=== PATIENT | female | born 1955 | race Caucasian/White ===

== ENCOUNTER → 2019-05-09 09:53 | Outpatient (BNVA) | payer MEDICARE, MEDICAID, SELFPAY | PROVIDERS: Family Provider Nurse Practitioner Family; PCP Nurse Practitioner Family; Visit Provider Internal Medicine Hematology & Oncology | DX: C18.2 Malignant neoplasm of ascending colon (principal) | CPT/HCPCS: 80053; 82378; 85025 ==

== ENCOUNTER 2019-05-11 09:09 | Outpatient (CLI) | payer MEDICARE, MEDICAID, SELFPAY | END 2019-05-11 09:10 | disposition home or self-care (01) | LOC: ONCMED 09:09 | PROVIDERS: Family Provider Nurse Practitioner Family; PCP Nurse Practitioner Family; Visit Provider Internal Medicine Hematology & Oncology | DX: Z08 Encounter for follow-up examination after completed treatment for malignant neoplasm (principal); Z85.038 Personal history of other malignant neoplasm of large intestine; D50.9 Iron deficiency anemia, unspecified; D51.9 Vitamin B12 deficiency anemia, unspecified; E87.6 Hypokalemia; R91.8 Other nonspecific abnormal finding of lung field; Z79.01 Long term (current) use of anticoagulants; Z87.891 Personal history of nicotine dependence; Z86.718 Personal history of other venous thrombosis and embolism; Z90.49 Acquired absence of other specified parts of digestive tract; Z92.21 Personal history of antineoplastic chemotherapy | CPT/HCPCS: G0463 ==

== ENCOUNTER → 2019-05-16 10:16 | Outpatient (BNVA) | payer MEDICARE, MEDICAID, SELFPAY | PROVIDERS: Visit Provider Psychiatry & Neurology Neurology | DX: E87.6 Hypokalemia (principal) | CPT/HCPCS: 80053 ==

== ENCOUNTER → 2019-09-05 11:17 | Outpatient (BNVA) | payer MEDICARE, MEDICAID, SELFPAY | PROVIDERS: Visit Provider Internal Medicine Hematology & Oncology | DX: C18.9 Malignant neoplasm of colon, unspecified (principal); E78.5 Hyperlipidemia, unspecified | CPT/HCPCS: 80053; 80061; 82378; 85025 ==

== ENCOUNTER 2019-09-07 09:09 | Outpatient (CLI) | payer MEDICARE, MEDICAID, SELFPAY ==
--- NOTE | 2019-09-07 09:58 | ONC FU_ITS ---
Dr. Martinez follow up note Patient: Dulce Moran Unit #: [id number]: 1955 Dicatated By: Joseph Martinez M.D.Date of Visit:September 07, 2019 Onc Med Follow-up/Prog Note History of Present Illness: Mrs. Moran is a 64-year-old female with history of anemia and guaiac-positive stool for which she underwent EGD and colonoscopy per Dr Sky. She was found to have a malignant appearing mass of the right colon. That was biopsy in did show adenocarcinoma. She had a CT scan on 12/07/2017 which reported proximal ascending colon mass small adjacent pericolic lymph nodes; like eczema; her hysterectomy and extensive arterial sclerotic peripheral vascular changes. She underwent EGD which did not find any abnormalities area the final pathology was infiltrating adenocarcinoma poorly differentiated mitotic activity index 6???7 mitosis/10 HPF the colon sigmoid polyp biopsies were benign. There was no evidence of any bony abnormalities or lytic destructive lesions. She had nonacute appearing superior endplate compression of T12, L1, L2 and L4 vertebral bodies. On 12/13/2017 she underwent a right hemicolectomy which showed T3 lesion, with 1 out of 17 lymph nodes were positive for metastatic disease and positive small lymphovascular space invasion, stage III with abnormal expression of DNA mismatch repair protein It is been recommended that she undergo adjuvant chemotherapy with FOLFOX. She began her first cycle on 01/30/2018. Baseline CEA was 0. She states that she has felt somewhat better being off the chemotherapy for the last several weeks. Her family confers that she has had great energy and is been very active. Ms. Moran states that with the last dose of oxaliplatin for 2 weeks she couldn't get out of bed. Her legs were weak and numb she had mouth numbness to the point worse difficult to swallow. She states she was just completely washed out awful . She states she would really rather not go that route if she does not have to. She states she understands this just to be a preventative against the cancer returning. The neuropathy has pretty well resolved although this she still has some in her hands and feet. So oxaliplatin was not given with cycle #5 FOLFOX and her treatment was stopped after cycle 5 on 04/12/2018. She was seen by Dr. Ramirez on 05/24/2018 @ [facility] [place] in [facility]. It was noted that she had resected stage IIIB right-sided colon adenocarcinoma, poorly differentiate, with loss of mL H1 and PMS to on IHC. There was suspicion for underlying BRAF mutation given the concordant loss of MLH1 and PMS2, potentially due to MLH1 promoter hypermethylation. It was recommended that she have next gene sequencing done with [employer] or [employer] and [employer] for circulating tumor DNA analysis. If her follow-up scans did not show any evidence of disease it was recommended that she resume FOLFOX to complete 12 cycles of adjuvant therapy. She restarted with FOLFOX on 06/19/2018. . She states she went cold turkey and has not smoked since. except numbness in left thumb and index finger, attributing to rheumatoid arthritis.Day after cycle #11/12 chemotherapy with FOLFOX on 09/15/2018 , patient developed fascial swelling/puffiness and came to office initial impression was allergic reaction, she was given dexamethasone/antihistaminic and observed for couple of hours, there was no improvement, patient had no respiratory distress, she was sent to emergency room for further evaluation with a concern being superior vena cava syndrome or DVT involving subclavian vein around Port-A-Cath in the right side. And on 09/15/2018 she underwent bilateral upper extremity venous Doppler study which showed left subclavian, basilic vein, internal jugular vein thrombosis and no evidence of right upper extremity DVT. Patient was admitted to hospital started on Lovenox and lateral switched to apixaban and discharge home. She was also found to have B12 deficiency and Treated with B12 supplements Now taking Eliquis 5 mg by mouth twice a day and recently went to vascular surgeon in [place] for thrombectomy in left upper arm, it was attempted but was unsuccessful. Patient said she was advised to go back in a year in December 2019 in the meantime advised to continue with Eliquis 5 mg by mouth twice a day and also recommend port removal. She was seen by Dr. Gonzalez for neuropathy involving bilateral hands, nerve conduction study was recommended as she may have carpal tunnel or median nerve compression but as per Dr. Gonzalez's note patient was not keen to get further studies done rather follow with observation alone. Came for follow-up, denies any specific complaints, no fever or chills, no nausea or vomiting, no diarrhea constipation, no melena or hematochezia, no jaundice, appetite is good.mild peripheral numbness involving hands, as per patient it is improving now Medications: Acid Control 1 (150 mg) Tablet Oral b.i.d., B-12 1 Tablet (of 100 mcg) Oral daily, Citalopram Hydrobromide 1 Tablet (of 40 mg) Oral daily, Claritin 1 Tablet (of 10 mg) Oral daily, Eliquis 1 Tablet (of 5 mg) Oral b.i.d., Folic Acid 1 Tablet (of 1 mg) Oral, Multiple Vitamins-Minerals 1 Tablet Oral daily, Protonix 1 Tablet (of 40 mg) Tablet, enteric coated Oral daily, TiZANidine HCl 1 Tablet (of 4 mg) Oral q 8 hours, TraMADol HCl 1 Tablet (of 50 mg) Oral four times a day, TraZODone HCl 0.5 - 1 Tablet (of 100 mg) Oral at bedtime Allergies: Advil, Aspirin, Penicillins, and Sulfa Antibiotics. Review of Systems: Constitutional - Appetite is good and weight is stable. No fever, chills, hot flashes, or night sweats. Energy level is good, ENMT - No sinus congestion, slight drainage. No mouth sores. No sore throat or difficulty swallowing, Hematologic/Lymphatic - Pt states she bruises easily, Respiratory - No shortness of breath. No cough. No pleuritic pain or hemoptysis. Pt quit smoking 3 weeks ago, Cardiovascular - No angina pain. No palpitations, Gastrointestinal - No nausea or vomiting. No heartburn or acid reflux. Occasional diarrhea, no constipation. No blood in the stool or black stools, Genitourinary (F) - No dysuria or hematuria. No urinary frequency. No urgency or incontinence, Musculoskeletal - Positive for joint pain (Pt has RA), Neurologic - No headache or dizziness. Pt denies numbness/tingling, Psychiatric - No anxiety or depression. No insomnia. Vital Signs: Performed on September 07, 2019 09:16 Height - 62.00 in Weight - 106.7 lbs (HIGH) BSA - 1.46 sq.m BMI - 19.52 Temperature - 97.9 F (LOW) Pulse - 66 /min Respiration - 16 /min BP - 160/80 mm(hg) (HIGH) O2 Sat - 98 % Pain - 0 Performance Status: 0 - Fully active, able to carry on all predisease activities without restrictions. (ECOG) Physical Examination: ENMT - no mouth sores, no thrush, no jaundice, Respiratory - Lungs are clear to auscultation, Cardiovascular - Regular rate and rhythm of heart, Abdomen - soft, bowel sounds present, Extremities - no visible edema or rash. Lab/Imaging: Test performed on September 05, 2019 11:17 Cholesterol, Total 178 mg/dL Glucose 80 mg/dL BUN 7 mg/dL HDL Cholesterol 52 mg/dL Creatinine 0.9 mg/dL LDL Cholesterol 95 mg/dL Cr Clearance (Est) 50.38 mL/min Triglycerides 156 mg/dL Sodium 139 mmol/L Potassium 4.1 mmol/L Chloride 102 mmol/L CO2 23 mmol/L Calcium 8.9 mg/dL Protein, Total 6.3 g/dL Albumin 4.3 g/dL Globulin 2.0 g/dL Bilirubin, Total 0.4 mg/dL Alkaline Phosphatase 125 IU/L AST (SGOT) 16 IU/L ALT (SGPT) 8 IU/L WBC 5.1 10^9/L RBC 3.55 10^12/L HGB 11.7 g/dL HCT 36.2 % MCV 102.0 fl MCH 33.0 pg MCHC 32.3 g/dL RDW 13.0 % Platelet Count 264 10^9/L MPV 10.8 fL Neutrophils (Gran) 2.7 10^9/L Lymphocytes 2.0 10^9/L Monocytes 0.3 10^9/L Eosinophils 0.1 10^9/L Basophils 0.0 10^9/L Manual Lymphocytes 38.7 % Manual Monocytes 6.4 % Manual Eosinophils 2.3 % Manual Basophils 0.8 % CEA 1.2 ng/mL Test performed on May 09, 2019 09:53 NRBCs 0.0 /100 WBC Impression: Moderately differentiated infiltrating adenocarcinoma involving the right colon status post right hemicolectomy done on 12/13/2017 Size of tumor 5.3 x 3.2 x 0.6 cm, with focal invasion through muscularis propria into serosal connective tissue e.g. T3 1 out of 17 lymph nodes positive for metastatic disease e.g. N1 Positive small lymphovascular space invasion Stage IIIB Tumor was tested for MSI/MMR on 05/01/2018 and it showed abnormal expression of DNA mismatch repair proteins MLH1, and PMS2 showed loss of nuclear expression whereas MSH2 and MSH6 showed intact nuclear expression. Further testing showed positive for BRAF mutation Started on FOLFOX every 2 weeks ???12 on 01/30/2018. Due to worsening of peripheral neuropathy and generalized weakness and fatigue cycle #5 FOLFOX was given without oxaliplatin. 2 .Iron deficiency anemia due to above On oral iron supplement Mrs Moran was evaluated by Dr. Aaron Ramirez , medical oncologist in colorectal clinic at [facility] on 05/22/2018 and his recommendations were, due to MSI high status, to continue with FOLFOX and complete total of 12 cycle of adjuvant chemotherapy, as patient's prognostic profiling shows loss of MLH1 and PMS 2 on IHC and and also recommended testing BRAF mutation given the concordant loss of MLH1 and PMS 2, potentially due to MLH1 promoter hyper methylation. Also recommended [employer] circulating tumor DNA analysis and CT scan of chest abdomen pelvis. CT scan of chest/abdomen/pelvis was done on 05/31/2018 showed left lower lobe superior segment 3-4 millimeter noncalcified pulmonary nodule. Right thyroid 6 mm cyst or nodule Nonacute appearing T7, T8 and T12 mild vertebral body compression deformities New left hepatic lobe subcapsular low-attenuation foci may represent fatty liver changes. Metastatic disease not entirely excluded. Suggest follow-up CT scan in 3 months, biochemical correlation maybe useful. Interval right partial colectomy with ileocolic anastomosis. She resumed treatment with FOLFOX on 06/19/2018. Her CT PET scan done on 08/12/2018 showed there are 2 suspicious hypermetabolic right lung apex pulmonary nodules both measures roughly 8 mm with SUV of 2.4 and 2.9. But liver lesion seen on previous CT scan showed no increased uptake, make it benign. So we'll continue to monitor lung nodules, patient has recently quit smoking. We will repeat CT PET scan in 3 months Developed facial swelling/puffiness on 09/15/2018, underwent bilateral upper extremities venous Doppler which confirmed left internal jugular, subclavian and basilic vein DVT patient was treated with Lovenox as inpatient for 2 days then switch to apixaban and discharged home Patient has Port-A-Cath in the right side but earlier in January 2018 port placement was attempted in left subclavian also be, could have caused scarring/narrowing of left subclavian this led to DVT other possibility could be thoracic outlet syndrome. B12 deficiency anemia Plan: Discussed with patient regarding her labs white blood count 5.1 hemoglobin 11.7 hematocrit 36.2 platelets 264,000 CMP within normal limits CEA 1.2 Clinically, patient is doing well with no signs symptom suggestive of recurrence of disease. Her tumor marker within normal limit as well as liver function test. Patient is scheduled for follow-up colonoscopy in November [address] Sky., She will return to clinic in 6 months with CBC CMP and CEA. Signed By: Joseph Martinez M.D. <<Signature on File>>
== END 2019-09-07 09:10 | disposition home or self-care (01) ==
LOC: ONCMED 09:13
PROVIDERS: PCP Nurse Practitioner Family; Visit Provider Internal Medicine Hematology & Oncology
DX: Z08 Encounter for follow-up examination after completed treatment for malignant neoplasm (principal); Z85.038 Personal history of other malignant neoplasm of large intestine; R91.8 Other nonspecific abnormal finding of lung field; D51.9 Vitamin B12 deficiency anemia, unspecified; Z87.891 Personal history of nicotine dependence; Z86.718 Personal history of other venous thrombosis and embolism; Z79.01 Long term (current) use of anticoagulants; Z92.21 Personal history of antineoplastic chemotherapy
CPT/HCPCS: G0463

== ENCOUNTER → 2019-12-12 11:33 | Outpatient (BNVA) | payer MEDICARE, MEDICAID, SELFPAY | PROVIDERS: PCP Nurse Practitioner Family; Visit Provider Nurse Practitioner Family | DX: E78.5 Hyperlipidemia, unspecified (principal) | CPT/HCPCS: 80053; 80061; 85025 ==

== ENCOUNTER → 2020-03-13 11:32 | Outpatient (BNVA) | payer MEDICARE, MEDICAID, SELFPAY | PROVIDERS: PCP Nurse Practitioner Family; Visit Provider Internal Medicine Hematology & Oncology | DX: C18.9 Malignant neoplasm of colon, unspecified (principal) | CPT/HCPCS: 80053; 82378; 85025 ==

== ENCOUNTER 2020-03-14 08:52 | Outpatient (CLI) | payer MEDICARE, MEDICAID, SELFPAY ==
--- NOTE | 2020-03-14 09:34 | ONC FU_ITS ---
Dr. Martinez follow up note Patient: Dulce Moran Unit #: [id number]: 1955 Dicatated By: Joseph Martinez M.D.Date of Visit:Mar 14, 2020 Onc Med Follow-up/Prog Note History of Present Illness: Mrs. Moran is a 65-year-old female with history of anemia and guaiac-positive stool for which she underwent EGD and colonoscopy per Dr Sky. She was found to have a malignant appearing mass of the right colon. That was biopsy in did show adenocarcinoma. She had a CT scan on 12/07/2017 which reported proximal ascending colon mass small adjacent pericolic lymph nodes; like eczema; her hysterectomy and extensive arterial sclerotic peripheral vascular changes. She underwent EGD which did not find any abnormalities area the final pathology was infiltrating adenocarcinoma poorly differentiated mitotic activity index 6???7 mitosis/10 HPF the colon sigmoid polyp biopsies were benign. There was no evidence of any bony abnormalities or lytic destructive lesions. She had nonacute appearing superior endplate compression of T12, L1, L2 and L4 vertebral bodies. On 12/13/2017 she underwent a right hemicolectomy which showed T3 lesion, with 1 out of 17 lymph nodes were positive for metastatic disease and positive small lymphovascular space invasion, stage III with abnormal expression of DNA mismatch repair protein It is been recommended that she undergo adjuvant chemotherapy with FOLFOX. She began her first cycle on 01/30/2018. Baseline CEA was 0. She states that she has felt somewhat better being off the chemotherapy for the last several weeks. Her family confers that she has had great energy and is been very active. Ms. Moran states that with the last dose of oxaliplatin for 2 weeks she couldn't get out of bed. Her legs were weak and numb she had mouth numbness to the point worse difficult to swallow. She states she was just completely washed out awful . She states she would really rather not go that route if she does not have to. She states she understands this just to be a preventative against the cancer returning. The neuropathy has pretty well resolved although this she still has some in her hands and feet. So oxaliplatin was not given with cycle #5 FOLFOX and her treatment was stopped after cycle 5 on 04/12/2018. She was seen by Dr. Ramirez on 05/24/2018 @ [facility] [place] in [facility]. It was noted that she had resected stage IIIB right-sided colon adenocarcinoma, poorly differentiate, with loss of mL H1 and PMS to on IHC. There was suspicion for underlying BRAF mutation given the concordant loss of MLH1 and PMS2, potentially due to MLH1 promoter hypermethylation. It was recommended that she have next gene sequencing done with [employer] or [employer] and [employer] for circulating tumor DNA analysis. If her follow-up scans did not show any evidence of disease it was recommended that she resume FOLFOX to complete 12 cycles of adjuvant therapy. She restarted with FOLFOX on 06/19/2018. . She states she went cold turkey and has not smoked since. except numbness in left thumb and index finger, attributing to rheumatoid arthritis.Day after cycle #11/12 chemotherapy with FOLFOX on 09/15/2018 , patient developed fascial swelling/puffiness and came to office initial impression was allergic reaction, she was given dexamethasone/antihistaminic and observed for couple of hours, there was no improvement, patient had no respiratory distress, she was sent to emergency room for further evaluation with a concern being superior vena cava syndrome or DVT involving subclavian vein around Port-A-Cath in the right side. And on 09/15/2018 she underwent bilateral upper extremity venous Doppler study which showed left subclavian, basilic vein, internal jugular vein thrombosis and no evidence of right upper extremity DVT. Patient was admitted to hospital started on Lovenox and lateral switched to apixaban and discharge home. She was also found to have B12 deficiency and Treated with B12 supplements Now taking Eliquis 5 mg by mouth twice a day and recently went to vascular surgeon in [place] for thrombectomy in left upper arm, it was attempted but was unsuccessful. Patient said she was advised to go back in a year in December 2019 in the meantime advised to continue with Eliquis 5 mg by mouth twice a day and also recommend port removal. She was seen by Dr. Gonzalez for neuropathy involving bilateral hands, nerve conduction study was recommended as she may have carpal tunnel or median nerve compression but as per Dr. Gonzalez's note patient was not keen to get further studies done rather follow with observation alone. Came for follow-up, denies any specific complaints, no fever chills, no nausea or vomiting, no diarrhea or constipation, no melena hematochezia no hemoptysis hematemesis, no jaundice. Patient states she went to vascular surgeon in [place] for follow-up and had left upper extremity venous Doppler study done in December 2019 and she was told she still has clot and was recommended to continue anticoagulation probably for rest of her life. Patient was supposed to get follow-up colonoscopy done in November 2019 but because of coronavirus pandemic, she did not schedule it. Medications: Acid Control 1 (150 mg) Tablet Oral b.i.d., B-12 1 Tablet (of 100 mcg) Oral daily, Citalopram Hydrobromide 1 Tablet (of 40 mg) Oral daily, Claritin 1 Tablet (of 10 mg) Oral daily, Eliquis 1 Tablet (of 5 mg) Oral b.i.d., Folic Acid 1 Tablet (of 1 mg) Oral, Multiple Vitamins-Minerals 1 Tablet Oral daily, Protonix 1 Tablet (of 40 mg) Tablet, enteric coated Oral daily, TiZANidine HCl 1 Tablet (of 4 mg) Oral q 8 hours, TraMADol HCl 1 Tablet (of 50 mg) Oral four times a day, TraZODone HCl 0.5 - 1 Tablet (of 100 mg) Oral at bedtime Allergies: Advil, Aspirin, Penicillins, and Sulfa Antibiotics. Review of Systems: Constitutional - Appetite is good and weight is stable. No fever, chills, hot flashes, or night sweats. Energy level is good, ENMT - No sinus congestion, slight drainage. No mouth sores. No sore throat or difficulty swallowing, Hematologic/Lymphatic - Pt states she bruises easily, Respiratory - No shortness of breath. No cough. No pleuritic pain or hemoptysis. Pt quit smoking 3 weeks ago, Cardiovascular - No angina pain. No palpitations, Gastrointestinal - No nausea or vomiting. No heartburn or acid reflux. No diarrhea, no constipation. No blood in the stool or black stools, Genitourinary (F) - No dysuria or hematuria. No urinary frequency. No urgency or incontinence, Musculoskeletal - Positive for joint pain (Pt has RA), Neurologic - No headache or dizziness. Pt denies numbness/tingling, Psychiatric - No anxiety or depression. No insomnia. Vital Signs: Performed on Mar 14, 2020 09:03 Height - 62.00 in Weight - 106.0 lbs (LOW) BSA - 1.46 sq.m BMI - 19.39 Temperature - 98.2 F (LOW) Pulse - 71 /min Respiration - 18 /min BP - 125/78 mm(hg) O2 Sat - 98 % Pain - 0 Performance Status: 0 - Fully active, able to carry on all predisease activities without restrictions. (ECOG) Physical Examination: ENMT - No mouth sores no thrush no jaundice, Respiratory - Lungs are clear to auscultation, Cardiovascular - Regular rate and rhythm of heart , Abdominal soft, bowel sounds present, Extremities - No visible edema or rash. Lab/Imaging: Test performed on Mar 13, 2020 11:32 Glucose 99 mg/dL BUN 13 mg/dL Creatinine 0.9 mg/dL Cr Clearance (Est) 49.71 mL/min Sodium 140 mmol/L Potassium 4.4 mmol/L Chloride 103 mmol/L CO2 26 mmol/L Calcium 9.4 mg/dL Protein, Total 6.3 g/dL Albumin 4.4 g/dL Globulin 1.9 g/dL Bilirubin, Total 0.3 mg/dL Alkaline Phosphatase 123 IU/L AST (SGOT) 12 IU/L ALT (SGPT) 6 IU/L WBC 5.6 10^9/L RBC 3.68 10^12/L HGB 12.2 g/dL HCT 36.0 % MCV 97.8 fl MCH 33.2 pg MCHC 33.9 g/dL RDW 12.4 % Platelet Count 265 10^9/L MPV 10.9 fL Neutrophils (Gran) 3.13 10^9/L Lymphocytes 2.0 10^9/L Monocytes 0.3 10^9/L Eosinophils 0.1 10^9/L Basophils 0.0 10^9/L Manual Lymphocytes 36.4 % Manual Monocytes 5.9 % Manual Eosinophils 1.4 % Manual Basophils 0.4 % CEA 1.5 ng/mL Impression: Moderately differentiated infiltrating adenocarcinoma involving the right colon status post right hemicolectomy done on 12/13/2017 Size of tumor 5.3 x 3.2 x 0.6 cm, with focal invasion through muscularis propria into serosal connective tissue e.g. T3 1 out of 17 lymph nodes positive for metastatic disease e.g. N1 Positive small lymphovascular space invasion Stage IIIB Tumor was tested for MSI/MMR on 05/01/2018 and it showed abnormal expression of DNA mismatch repair proteins MLH1, and PMS2 showed loss of nuclear expression whereas MSH2 and MSH6 showed intact nuclear expression. Further testing showed positive for BRAF mutation Started on FOLFOX every 2 weeks ???12 on 01/30/2018. Due to worsening of peripheral neuropathy and generalized weakness and fatigue cycle #5 FOLFOX was given without oxaliplatin. 2 .Iron deficiency anemia due to above On oral iron supplement Mrs Moran was evaluated by Dr. Aaron Ramirez , medical oncologist in colorectal clinic at [facility] on 05/22/2018 and his recommendations were, due to MSI high status, to continue with FOLFOX and complete total of 12 cycle of adjuvant chemotherapy, as patient's prognostic profiling shows loss of MLH1 and PMS 2 on IHC and and also recommended testing BRAF mutation given the concordant loss of MLH1 and PMS 2, potentially due to MLH1 promoter hyper methylation. Also recommended [employer] circulating tumor DNA analysis and CT scan of chest abdomen pelvis. CT scan of chest/abdomen/pelvis was done on 05/31/2018 showed left lower lobe superior segment 3-4 millimeter noncalcified pulmonary nodule. Right thyroid 6 mm cyst or nodule Nonacute appearing T7, T8 and T12 mild vertebral body compression deformities New left hepatic lobe subcapsular low-attenuation foci may represent fatty liver changes. Metastatic disease not entirely excluded. Suggest follow-up CT scan in 3 months, biochemical correlation maybe useful. Interval right partial colectomy with ileocolic anastomosis. She resumed treatment with FOLFOX on 06/19/2018. Her CT PET scan done on 08/12/2018 showed there are 2 suspicious hypermetabolic right lung apex pulmonary nodules both measures roughly 8 mm with SUV of 2.4 and 2.9. But liver lesion seen on previous CT scan showed no increased uptake, make it benign. So we'll continue to monitor lung nodules, patient has recently quit smoking. We will repeat CT PET scan in 3 months Developed facial swelling/puffiness on 09/15/2018, underwent bilateral upper extremities venous Doppler which confirmed left internal jugular, subclavian and basilic vein DVT patient was treated with Lovenox as inpatient for 2 days then switch to apixaban and discharged home Patient has Port-A-Cath in the right side but earlier in January 2018 port placement was attempted in left subclavian also be, could have caused scarring/narrowing of left subclavian this led to DVT other possibility could be thoracic outlet syndrome. B12 deficiency anemia Plan: Discussed with patient regarding her labs white blood count 5.6 hemoglobin 12.2 hematocrit 36 platelets 265,000 CMP within normal limits CEA 1.5 Clinically, patient is doing well with no new signs symptom suggestive of recurrence of disease, her follow-up lab work-up is within normal range. Patient was advised to follow-up with Dr. Sky regarding her colonoscopy and then return to clinic in 6 months with CBC CMP CEA Signed By: Joseph Martinez M.D. <<Signature on File>>
== END 2020-03-14 08:53 | disposition home or self-care (01) ==
LOC: ONCMED 08:56
PROVIDERS: PCP Nurse Practitioner Family; Visit Provider Internal Medicine Hematology & Oncology
DX: Z08 Encounter for follow-up examination after completed treatment for malignant neoplasm (principal); Z85.038 Personal history of other malignant neoplasm of large intestine; E53.8 Deficiency of other specified B group vitamins; Z90.49 Acquired absence of other specified parts of digestive tract; Z92.21 Personal history of antineoplastic chemotherapy; Z86.718 Personal history of other venous thrombosis and embolism; Z79.01 Long term (current) use of anticoagulants
CPT/HCPCS: G0463

== ENCOUNTER → 2020-05-02 11:03 | Outpatient (BNVA) | payer MEDICARE, MEDICAID, SELFPAY | PROVIDERS: PCP Nurse Practitioner Family; Visit Provider Family Medicine | DX: Z85.038 Personal history of other malignant neoplasm of large intestine (principal); E78.5 Hyperlipidemia, unspecified; Z20.828 Contact with and (suspected) exposure to other viral communicable diseases | CPT/HCPCS: 80053; 80061; 82607; 85025; 87635 ==

== ENCOUNTER 2020-05-07 07:23 | Day surgery (SDC) | payer MEDICARE, MEDICAID, SELFPAY ==
[2020-05-05 12:40] VITALS: BMI 19.3
[2020-05-07] MEDS: sodium chloride 0.9% 1,000 ML 30 ML IV (07:30)
[2020-05-07 07:32] VITALS: BP 124/77; PULSE 86; RESP 16; TEMP 36.1; O2SAT 97
--- NOTE | 2020-05-07 08:27 | ANES.PREANE2 ---
Pre-Anesthetic Assessment Pre-Anesthetic Assessment: Height/Weight: Height 1.57 m Weight 48.081 kg Temp Pulse Resp BP Pulse Ox 97 F L 86 16 124/77 97 05/07/20 07:32 05/07/20 07:32 05/07/20 07:32 05/07/20 07:32 05/07/20 07:32 Preop Diagnosis: Colon cancer history Proposed Procedure: Operation Date: 05/07/20 08:00 Proposed Procedures p Colonoscopy 03309 Z85.038(Not Applicable) - Isaias Sky MD Was Beta Zoila taken within 24 hours: N/A Last intake: Intake Last Liquid Date 05/06/20 Last Liquid Time 22:30 Last Solid Date 05/05/20 Last Solid Time 00:00 Social: Social History: Tobacco and No alcohol Comment: quit smoking Exam: Pre-Anes Outpt Exam: alert, oriented x 3 and regular rate & rhythm Additional Exam Findings (including area of procedure): rhonchi Airway: Submandibular: WNL Cervical ROM: WNL MP: 2 Pulmonary: Pulmonary: COPD : : Chronic renal Insufficiency GI: GI: GERD Musc/skel: Musc/skel: RA Neuropsych: Neuropsych: Anxiety and Depression Anesthetic Plan: ASA status: 3 Anesthesia: MAC Risk of > 500 ml blood loss (7ml/kg in children): No PFSH Anesthesia PFSH: Medical History (Updated 05/06/20 @ 22:37 by SAE Martin) Ankylosing spondylitis Chronic GERD Chronic kidney disease, stage 1 Colon cancer COPD (chronic obstructive pulmonary disease) Depression DVT (deep venous thrombosis) Dyslipidemia History of colon cancer Rheumatoid arthritis Vitamin B12 deficiency Surgical History (Updated 04/20/20 @ 17:45 by SAE Martin) History of colon resection S/P breast biopsy S/P hysterectomy Family History Father Diabetes Mother Cancer Grandmother Heart disease Social History Smoking and tobacco status: smoker, details unknown cigarettes [ Other cigarette details: stopped 07/2018 ] Quit status (tobacco): has quit using tobacco Year quit tobacco: 2018 Second hand smoke exposure: Yes Alcohol intake: never Lives independently: Yes Household members: family Marital status: / Current occupational status: retired History of recent travel: No Current gender identity: Female Special jones needs: No Agree to transfusion: Yes Data Anesthesia Cardiac Studies: No Data to Display
--- NOTE | 2020-05-07 09:24 | W.PM.OPSUD ---
Surgery/Procedure H&P Update DATE OF PROCEDURE: May 07, 2020 DATE H&P PERFORMED: 04/17/20 H&P UPDATE INFORMATION: I have reviewed H&P completed within last 30 days, I have examined patient prior to procedure and No changes to prior documentation PREOP DIAGNOSIS: Colon cancer history PRIMARY INDICATION FOR PROCEDURE: The same PLANNED PROCEDURE: Operation Date: 05/07/20 08:00 Proposed Procedures p Colonoscopy 71375 Z85.038(Not Applicable) - Isaias Sky MD
[2020-05-07 09:57] VITALS: BP 145/77; PULSE 74; RESP 18; TEMP 36.3; O2SAT 100
[2020-05-07 10:10] VITALS: BP 144/77; PULSE 66; RESP 18; O2SAT 99
--- NOTE | 2020-05-07 10:41 | ANE.PACU2 ---
Inpatient post-anesthesia follow up: Airway intact: Yes Vital signs: Temperature 97.4 F Pulse Rate 66 Respiratory Rate 18 Blood Pressure 144/77 Pulse Oximetry 99 Oxygen Delivery Me thod Room Air Oxygen Flow Rate 4 Fraction of Inspir ed Oxygen Hydration adequate: Yes Nausea and vomiting: No Pain level: 1 Mental status: Baseline
== END 2020-05-07 10:20 | disposition home or self-care (01) ==
PROVIDERS: PCP Nurse Practitioner Family; Visit Provider Surgery
PROC: 0DJD8ZZ Inspection of Lower Intestinal Tract, Via Natural or Artificial Opening Endoscopic (ICD-10-PCS; CPT 45378; principal; 2020-05-07 08:00)
DX: D12.4 Benign neoplasm of descending colon (principal); Z85.038 Personal history of other malignant neoplasm of large intestine; K21.9 Gastro-esophageal reflux disease without esophagitis; J44.9 Chronic obstructive pulmonary disease, unspecified; F32.9 Major depressive disorder, single episode, unspecified; Z86.718 Personal history of other venous thrombosis and embolism; E78.5 Hyperlipidemia, unspecified; M06.9 Rheumatoid arthritis, unspecified
CPT/HCPCS: 12345; 45385; 88305; J2704; J7030

== ENCOUNTER → 2020-09-10 09:21 | Outpatient (BNVA) | payer MEDICARE, MEDICAID, SELFPAY | PROVIDERS: PCP Nurse Practitioner Family; Visit Provider Internal Medicine Hematology & Oncology | DX: C18.9 Malignant neoplasm of colon, unspecified (principal); E78.5 Hyperlipidemia, unspecified; F32.9 Major depressive disorder, single episode, unspecified; M06.9 Rheumatoid arthritis, unspecified | CPT/HCPCS: 80053; 80061; 82306; 82378; 84443; 85025 ==

== ENCOUNTER 2020-09-12 09:01 | Outpatient (CLI) | payer MEDICARE, MEDICAID, SELFPAY ==
--- NOTE | 2020-09-12 10:15 | ONC FU_ITS ---
Dr. Martinez follow up note Patient: Dulce Moran Unit #: [id number]: 1955 Dicatated By: Joseph Martinez M.D.Date of Visit:Sep 12, 2020 Onc Med Follow-up/Prog Note History of Present Illness: Mrs. Moran is a 65-year-old female with history of anemia and guaiac-positive stool for which she underwent EGD and colonoscopy per Dr Sky. She was found to have a malignant appearing mass of the right colon. That was biopsy in did show adenocarcinoma. She had a CT scan on 12/07/2017 which reported proximal ascending colon mass small adjacent pericolic lymph nodes; like eczema; her hysterectomy and extensive arterial sclerotic peripheral vascular changes. She underwent EGD which did not find any abnormalities area the final pathology was infiltrating adenocarcinoma poorly differentiated mitotic activity index 6???7 mitosis/10 HPF the colon sigmoid polyp biopsies were benign. There was no evidence of any bony abnormalities or lytic destructive lesions. She had nonacute appearing superior endplate compression of T12, L1, L2 and L4 vertebral bodies. On 12/13/2017 she underwent a right hemicolectomy which showed T3 lesion, with 1 out of 17 lymph nodes were positive for metastatic disease and positive small lymphovascular space invasion, stage III with abnormal expression of DNA mismatch repair protein It is been recommended that she undergo adjuvant chemotherapy with FOLFOX. She began her first cycle on 01/30/2018. Baseline CEA was 0. She states that she has felt somewhat better being off the chemotherapy for the last several weeks. Her family confers that she has had great energy and is been very active. Ms. Moran states that with the last dose of oxaliplatin for 2 weeks she couldn't get out of bed. Her legs were weak and numb she had mouth numbness to the point worse difficult to swallow. She states she was just completely washed out awful . She states she would really rather not go that route if she does not have to. She states she understands this just to be a preventative against the cancer returning. The neuropathy has pretty well resolved although this she still has some in her hands and feet. So oxaliplatin was not given with cycle #5 FOLFOX and her treatment was stopped after cycle 5 on 04/12/2018. She was seen by Dr. Ramirez on 05/24/2018 @ [facility] [place] in [facility]. It was noted that she had resected stage IIIB right-sided colon adenocarcinoma, poorly differentiate, with loss of mL H1 and PMS to on IHC. There was suspicion for underlying BRAF mutation given the concordant loss of MLH1 and PMS2, potentially due to MLH1 promoter hypermethylation. It was recommended that she have next gene sequencing done with [employer] or [employer] and [employer] for circulating tumor DNA analysis. If her follow-up scans did not show any evidence of disease it was recommended that she resume FOLFOX to complete 12 cycles of adjuvant therapy. She restarted with FOLFOX on 06/19/2018. . She states she went cold turkey and has not smoked since. except numbness in left thumb and index finger, attributing to rheumatoid arthritis.Day after cycle #11/12 chemotherapy with FOLFOX on 09/15/2018 ,patient developed fascial swelling/puffiness and came to office initial impression was allergic reaction, she was given dexamethasone/antihistaminic and observed for couple of hours, there was no improvement, patient had no respiratory distress, she was sent to emergency room for further evaluation with a concern being superior vena cava syndrome or DVT involving subclavian vein around Port-A-Cath in the right side. And on 09/15/2018 she underwent bilateral upper extremity venous Doppler study which showed left subclavian, basilic vein, internal jugular vein thrombosis and no evidence of right upper extremity DVT. Patient was admitted to hospital started on Lovenox and lateral switched to apixaban and discharge home. She was also found to have B12 deficiency and Treated with B12 supplements Now taking Eliquis 5 mg by mouth twice a day and recently went to vascular surgeon in [place] for thrombectomy in left upper arm, it was attempted but was unsuccessful. advised to continue with Eliquis 5 mg by mouth twice a day and also recommend port removal.Patient states she went to vascular surgeon in [place] for follow-up and had left upper extremity venous Doppler study done in December 2019 and she was told she still has clot and was recommended to continue anticoagulation probably for rest of her life. She was seen by Dr. Gonzalez for neuropathy involving bilateral hands, nerve conduction study was recommended as she may have carpal tunnel or median nerve compression but as per Dr. Gonzalez's note patient was not keen to get further studies done rather follow with observation alone. Follow-up colonoscopy done on May 07 2020 showed a polyp in the descending colon which was removed and pathology confirmed tubular adenoma, no high-grade dysplasia identified Came for follow-up, denies any specific complaints, no fever chills, no nausea or vomiting, no diarrhea or constipation, No melena hematochezia, no jaundice, no abdominal pain, recently underwent colonoscopy and there was a polyp found in her descending colon and it was benign, as per patient follow-up colonoscopy is scheduled year from her last colonoscopy which was done in April 2020 Medications: Acid Control 1 (150 mg) Tablet Oral b.i.d., B-12 1 Tablet (of 100 mcg) Oral daily, Citalopram Hydrobromide 1 Tablet (of 40 mg) Oral daily, Claritin 1 Tablet (of 10 mg) Oral daily, Eliquis 1 Tablet (of 5 mg) Oral b.i.d., Folic Acid 1 Tablet (of 1 mg) Oral, Multiple Vitamins-Minerals 1 Tablet Oral daily, Protonix 1 Tablet (of 40 mg) Tablet, enteric coated Oral daily, TiZANidine HCl 1 Tablet (of 4 mg) Oral q 8 hours, TraMADol HCl 1 Tablet (of 50 mg) Oral four times a day, TraZODone HCl 0.5 - 1 Tablet (of 100 mg) Oral at bedtime Allergies: Advil, Aspirin, Penicillins, and Sulfa Antibiotics. Review of Systems: Review of Systems is not available for this patient. Vital Signs: Performed on Sep 12, 2020 10:13 Height - 62.00 in Weight - 105 lbs (LOW) BSA - 1.45 sq.m BMI - 19.20 Temperature - 97.2 F (LOW) Pulse - 76 /min Respiration - 18 /min BP - 131/78 mm(hg) O2 Sat - 95 % (LOW) Pain - 0 Fatigue - 0 Performance Status: 0 - Fully active, able to carry on all predisease activities without restrictions. (ECOG) Physical Examination: ENMT - No mouth sores. No thrush, no jaundice, Respiratory - Lungs are clear to auscultation, Cardiovascular - Regular rate and rhythm of heart, Abdomen - Soft, bowel sounds present, Extremities - No visible edema. Lab/Imaging: Test performed on Sep 10, 2020 09:21 TSH 2.19 uU/mL Cholesterol, Total 199 mg/dL Glucose 83 mg/dL Vitamin D (25-Hydroxy) 34 ng/mL BUN 10 mg/dL HDL Cholesterol 58 mg/dL Creatinine 0.9 mg/dL LDL Cholesterol 111 mg/dL Cr Clearance (Est) 49.71 mL/min Triglycerides 152 mg/dL Sodium 140 mmol/L Potassium 3.8 mmol/L Chloride 103 mmol/L CO2 23 mmol/L Calcium 8.7 mg/dL Protein, Total 6.4 g/dL Albumin 4.2 g/dL Globulin 2.2 g/dL Bilirubin, Total 0.4 mg/dL Alkaline Phosphatase 97 IU/L AST (SGOT) 16 IU/L ALT (SGPT) 9 IU/L WBC 4.4 10^9/L RBC 3.67 10^12/L HGB 12.5 g/dL HCT 36.0 % MCV 98.0 fl MCH 33.9 pg MCHC 34.6 g/dL RDW 13.2 % Platelet Count 299 10^9/L MPV 8.2 fL Neutrophils (Gran) 2.7 10^9/L Lymphocytes 1.4 10^9/L Monocytes 0.3 10^9/L Manual Lymphocytes 31.2 % Manual Monocytes 7.0 % CEA 1.8 ng/mL Impression: Moderately differentiated infiltrating adenocarcinoma involving the right colon status post right hemicolectomy done on 12/13/2017 Size of tumor 5.3 x 3.2 x 0.6 cm, with focal invasion through muscularis propria into serosal connective tissue e.g. T3 1 out of 17 lymph nodes positive for metastatic disease e.g. N1 Positive small lymphovascular space invasion Stage IIIB Tumor was tested for MSI/MMR on 05/01/2018 and it showed abnormal expression of DNA mismatch repair proteins MLH1, and PMS2 showed loss of nuclear expression whereas MSH2 and MSH6 showed intact nuclear expression. Further testing showed positive for BRAF mutation Started on FOLFOX every 2 weeks ???12 on 01/30/2018. Due to worsening of peripheral neuropathy and generalized weakness and fatigue cycle #5 FOLFOX was given without oxaliplatin. 2 .Iron deficiency anemia due to above On oral iron supplement Mrs Moran was evaluated by Dr. Aaron Ramirez , medical oncologist in colorectal clinic at [facility] on 05/22/2018 and his recommendations were, due to MSI high status, to continue with FOLFOX and complete total of 12 cycle of adjuvant chemotherapy, as patient's prognostic profiling shows loss of MLH1 and PMS 2 on IHC and and also recommended testing BRAF mutation given the concordant loss of MLH1 and PMS 2, potentially due to MLH1 promoter hyper methylation. Also recommended [employer] circulating tumor DNA analysis and CT scan of chest abdomen pelvis. CT scan of chest/abdomen/pelvis was done on 05/31/2018 showed left lower lobe superior segment 3-4 millimeter noncalcified pulmonary nodule. Right thyroid 6 mm cyst or nodule Nonacute appearing T7, T8 and T12 mild vertebral body compression deformities New left hepatic lobe subcapsular low-attenuation foci may represent fatty liver changes. Metastatic disease not entirely excluded. Suggest follow-up CT scan in 3 months, biochemical correlation maybe useful. Interval right partial colectomy with ileocolic anastomosis. She resumed treatment with FOLFOX on 06/19/2018. Her CT PET scan done on 08/12/2018 showed there are 2 suspicious hypermetabolic right lung apex pulmonary nodules both measures roughly 8 mm with SUV of 2.4 and 2.9. But liver lesion seen on previous CT scan showed no increased uptake, make it benign. So we'll continue to monitor lung nodules, patient has recently quit smoking. We will repeat CT PET scan in 3 months Developed facial swelling/puffiness on 09/15/2018, underwent bilateral upper extremities venous Doppler which confirmed left internal jugular, subclavian and basilic vein DVT patient was treated with Lovenox as inpatient for 2 days then switch to apixaban and discharged home. And vascular surgeon in [place] attempted to remove left basilic vein DVT but it was unsuccessful, follow-up sonogram done in December 2019 showed persistent clot, at that time she was advised to continue with Eliquis twice a day for rest of her life Patient has Port-A-Cath in the right side but earlier in January 2018 port placement was attempted in left subclavian also be, could have caused scarring/narrowing of left subclavian this led to DVT other possibility could be thoracic outlet syndrome. B12 deficiency anemia Plan: Discussed with patient regarding her labs white blood count 4.4 hemoglobin 12.5 hematocrit 36 platelets 299,000 CMP within normal limit CEA 1.8 Clinically, patient doing well with no signs symptom suggestive of recurrence of disease, her tumor marker CEA is within normal range and he recently underwent colonoscopy which showed no evidence of recurrence but polyp in the descending colon which was removed and final pathology report confirmed tubular adenoma with no evidence of high-grade dysplasia. And follow-up colonoscopy in April 2021 is being considered. Patient has persistent, mild swelling in her left upper arm and supraclavicular area because of subclavian/basilic vein DVT in the past, vascular surgery in [place] did attempt embolectomy but it was unsuccessful, as per patient follow-up venous Doppler study of left upper arm done in December 2019 confirmed persistent thrombosis and at that time she was advised to continue with Eliquis twice a day and her PMD is monitoring. She will return to clinic in 6 months with CBC CMP and CEA Signed By: Joseph Martinez M.D. <<Signature on File>>
== END 2020-09-12 09:02 | disposition home or self-care (01) ==
LOC: ONCMED 09:04
PROVIDERS: PCP Nurse Practitioner Family; Visit Provider Internal Medicine Hematology & Oncology
DX: C18.2 Malignant neoplasm of ascending colon (principal); C77.8 Secondary and unspecified malignant neoplasm of lymph nodes of multiple regions; G62.0 Drug-induced polyneuropathy; T45.1X5A Adverse effect of antineoplastic and immunosuppressive drugs, initial encounter; D50.9 Iron deficiency anemia, unspecified; D51.9 Vitamin B12 deficiency anemia, unspecified; Z86.718 Personal history of other venous thrombosis and embolism; Z79.01 Long term (current) use of anticoagulants; Z79.899 Other long term (current) drug therapy
CPT/HCPCS: 99214

== ENCOUNTER → 2020-12-19 12:09 | Outpatient (BNVA) | payer MEDICARE, MEDICAID, SELFPAY | PROVIDERS: PCP Nurse Practitioner Family; Visit Provider Nurse Practitioner Family | DX: Z20.822 Contact with and (suspected) exposure to COVID-19 (principal) | CPT/HCPCS: 87635 ==

== ENCOUNTER → 2021-03-11 10:31 | Outpatient (BNVA) | payer MEDICARE, MEDICAID, SELFPAY | PROVIDERS: PCP Nurse Practitioner Family; Visit Provider Internal Medicine Hematology & Oncology | DX: E78.5 Hyperlipidemia, unspecified (principal); E87.6 Hypokalemia | CPT/HCPCS: 80053; 80061; 85025 ==

== ENCOUNTER → 2021-04-07 11:25 | Outpatient (BNVA) | payer MEDICARE, MEDICAID, SELFPAY | PROVIDERS: PCP Nurse Practitioner Family; Visit Provider Internal Medicine Hematology & Oncology | DX: C18.9 Malignant neoplasm of colon, unspecified (principal); Z90.49 Acquired absence of other specified parts of digestive tract | CPT/HCPCS: 80053; 82378; 85025 ==

== ENCOUNTER 2021-04-09 14:53 | Outpatient (CLI) | payer MEDICARE, MEDICAID, SELFPAY | END 2021-04-09 14:54 | disposition home or self-care (01) | LOC: ONCMED 14:57 | PROVIDERS: PCP Nurse Practitioner Family; Visit Provider Nurse Practitioner Family | DX: Z08 Encounter for follow-up examination after completed treatment for malignant neoplasm (principal); Z85.038 Personal history of other malignant neoplasm of large intestine; D50.9 Iron deficiency anemia, unspecified; D51.9 Vitamin B12 deficiency anemia, unspecified; I82.C12 Acute embolism and thrombosis of left internal jugular vein; I82.B12 Acute embolism and thrombosis of left subclavian vein; I82.492 Acute embolism and thrombosis of other specified deep vein of left lower extremity; Z79.01 Long term (current) use of anticoagulants; Z79.899 Other long term (current) drug therapy; Z92.21 Personal history of antineoplastic chemotherapy | CPT/HCPCS: 99214 ==

== ENCOUNTER → 2021-08-10 09:24 | Outpatient (BNVA) | payer MEDICARE, MEDICAID, SELFPAY | PROVIDERS: PCP Nurse Practitioner Family; Visit Provider Nurse Practitioner Family | DX: E78.5 Hyperlipidemia, unspecified (principal); N18.1 Chronic kidney disease, stage 1 | CPT/HCPCS: 80053; 80061; 82306; 82607; 83735; 84443; 85025 ==

== ENCOUNTER → 2021-10-26 15:03 | Outpatient (BNVA) | payer MEDICARE, MEDICAID, SELFPAY | PROVIDERS: PCP Nurse Practitioner Family; Visit Provider Nurse Practitioner Family | DX: J40 Bronchitis, not specified as acute or chronic (principal); J44.9 Chronic obstructive pulmonary disease, unspecified; R05.9 Cough, unspecified | CPT/HCPCS: 71046 ==

== ENCOUNTER → 2021-11-11 09:23 | Outpatient (BNVA) | payer MEDICARE, MEDICAID, SELFPAY | PROVIDERS: PCP Nurse Practitioner Family; Visit Provider Internal Medicine Hematology & Oncology | DX: E55.9 Vitamin D deficiency, unspecified (principal); N18.1 Chronic kidney disease, stage 1; C18.9 Malignant neoplasm of colon, unspecified | CPT/HCPCS: 80053; 82378; 85025 ==

== ENCOUNTER 2021-11-17 10:48 | Oncology outpatient (recurring) (ONCR) | payer MEDICARE, MEDICAID, SELFPAY | END 2021-12-09 23:59 | disposition home or self-care (01) | PROVIDERS: PCP Nurse Practitioner Family; Visit Provider Internal Medicine Hematology & Oncology | DX: Z08 Encounter for follow-up examination after completed treatment for malignant neoplasm (principal); Z85.038 Personal history of other malignant neoplasm of large intestine; Z87.891 Personal history of nicotine dependence; Z92.21 Personal history of antineoplastic chemotherapy; Z90.49 Acquired absence of other specified parts of digestive tract; Z86.718 Personal history of other venous thrombosis and embolism; Z79.01 Long term (current) use of anticoagulants | CPT/HCPCS: 99214; G0463 ==

== ENCOUNTER → 2022-01-07 13:18 | Outpatient (BNVA) | payer MEDICARE, MEDICAID, SELFPAY | PROVIDERS: PCP Nurse Practitioner Family; Visit Provider Family Medicine | DX: C18.9 Malignant neoplasm of colon, unspecified (principal); E53.8 Deficiency of other specified B group vitamins; J44.9 Chronic obstructive pulmonary disease, unspecified; E55.9 Vitamin D deficiency, unspecified; M06.9 Rheumatoid arthritis, unspecified; E78.5 Hyperlipidemia, unspecified; G47.00 Insomnia, unspecified; K21.9 Gastro-esophageal reflux disease without esophagitis | CPT/HCPCS: 80053; 80061; 82306; 82607; 84443; 85025 ==

== ENCOUNTER → 2022-01-20 10:04 | Outpatient (BNVA) | payer MEDICARE, MEDICAID, SELFPAY | PROVIDERS: PCP Nurse Practitioner Family; Visit Provider Surgery | DX: Z85.038 Personal history of other malignant neoplasm of large intestine (principal); C18.9 Malignant neoplasm of colon, unspecified | CPT/HCPCS: 99213 ==

== ENCOUNTER → 2022-02-11 12:31 | Outpatient (BNVA) | payer MEDICARE, MEDICAID, SELFPAY | PROVIDERS: PCP Nurse Practitioner Family; Visit Provider Family Medicine | DX: E87.6 Hypokalemia (principal); E53.8 Deficiency of other specified B group vitamins | CPT/HCPCS: 80053 ==

== ENCOUNTER 2022-03-24 06:51 | Day surgery (SDC) | payer MEDICARE, MEDICAID, SELFPAY ==
[2022-03-12 11:55] VITALS: BMI 20.1
[2022-03-24 07:11] VITALS: BP 132/81; PULSE 94; RESP 18; TEMP 36.2; O2SAT 95
[2022-03-24] MEDS: sodium chloride 0.9% 1,000 ML 30 ML IV (07:19)
--- NOTE | 2022-03-24 07:51 | ANES.PREANE2 ---
Pre-Anesthetic Assessment Height/Weight: Height 1.57 m Weight 49.895 kg Temp Pulse Resp BP Pulse Ox O2 Del Method 97.2 F L 94 18 132/81 95 03/24/22 07:11 03/24/22 07:11 03/24/22 07:11 03/24/22 07:11 03/24/22 07:11 03/24/22 07:11 Preop Diagnosis: History of right hemicolectomy for colon cancer Operation Date: 03/24/22 08:30 Proposed Procedures p Colonoscopy 36144,Z85.038(Not Applicable) - Isaias Sky MD Familial anesthetic complications: None Was Beta Zoila taken within 24 hours: N/A Was Clonidine taken within 24 hours: N/A Last intake: Intake Last Liquid Date 03/23/22 Last Liquid Time 23:00 Last Solid Date 03/22/22 Last Solid Time 20:30 Social No alcohol and No tobacco Exam alert, oriented x 3, clear to auscultation bilaterally and regular rate & rhythm Airway Mallampati: Class III Dentition: false and partials Pulmonary Chronic Obstructive Pulmonary Disease (bronchtiis) CV/HEM Deep Vein Thrombosis Chronic Renal Insufficiency GI Gastroesophageal Reflux Disease colon cancer Metabolic b12 deficiency [facility] Rheumatoid Arthritis ankylosis spondylitis Anesthetic Plan ASA status: 3 Anesthesia: MAC Risk of > 500 ml blood loss (7ml/kg in children): No Medications/Allergies Home Medications Medication Instructions Recorded Confirmed Last Taken Type loratadine 10 mg tablet (Allergy 10 mg PO QDAY 05/09/19 03/24/22 03/22/22 History Relief (loratadine)) albuterol sulfate 90 mcg/actuation 2 puff inhalation QID PRN 01/07/22 03/24/22 03/22/22 Rx aerosol inhaler (ProAir HFA) shortness of breath or wheezing #8.5 grams budesonide-formoterol HFA 160 2 puff inhalation BID #10.2 grams 01/07/22 03/24/22 03/22/22 Rx mcg-4.5 mcg/actuation aerosol inhaler (Symbicort) cyanocobalamin (vitamin B-12) 1,000 mcg IM .monthly #1 mL 01/07/22 03/24/22 03/12/22 Rx 1,000 mcg/mL injection solution ergocalciferol (vitamin D2) 1,250 1,250 mcg PO .weekly #12 caps 01/07/22 03/24/22 03/18/22 Rx mcg (50,000 unit) capsule tramadol 50 mg tablet 50 mg PO Q6H PRN pain 30 days #120 01/07/22 03/24/22 03/22/22 Rx tabs apixaban 5 mg tablet (Eliquis) 5 mg PO BID 03/12/22 03/24/22 03/18/22 History citalopram 40 mg tablet 40 mg PO DAILY 03/12/22 03/24/22 03/22/22 History pantoprazole 40 mg tablet,delayed 40 mg PO DAILY 03/12/22 03/24/22 03/22/22 History release tizanidine 4 mg tablet 4 mg PO Q8H PRN Muscle Spasm 03/12/22 03/24/22 03/22/22 History trazodone 100 mg tablet 100 mg PO BEDTIME 03/12/22 03/24/22 03/22/22 History Allergies Allergy/AdvReac Type Severity Reaction Status Date / Time aspirin Allergy Unknown Unknown Verified 03/24/22 07:09 naproxen [From Aleve] Allergy Unknown unknown Verified 03/24/22 07:09 Penicillins Allergy Unknown Unknown Verified 03/24/22 07:09 Sulfa (Sulfonamide Allergy Unknown Unknown Verified 03/24/22 07:09 Antibiotics) Current Medications Generic Name Dose Route Start Last Admin Trade Name Freq PRN Reason Stop Dose Admin Sodium Chloride 1,000 mls @ 30 mls/hr 03/24/22 07:00 03/24/22 07:19 Sodium Chloride 0.9% IV 30 mls/hr .Q24H EVA Administration PFSH Anesthesia Medical History Ankylosing spondylitis Chronic GERD Chronic kidney disease, stage 1 Colon cancer Colon cancer Colon polyp COPD (chronic obstructive pulmonary disease) Depression DVT (deep venous thrombosis) Dyslipidemia History of colon cancer Rheumatoid arthritis Vitamin B12 deficiency Vitamin D deficiency Surgical History History of colon resection S/P breast biopsy S/P hysterectomy Family History Father Diabetes Mother Cancer Grandmother Heart disease CAD (coronary artery disease) Brother Hyperlipidemia Hypertension Denies family history of Clotting disorder Dementia Psychiatric illness Chronic kidney disease (CKD) Suicide Anesthesia complication Bleeding disorder Lung disease Stroke Social History Smoking and tobacco status: former smoker (smoked 1.5 PPD x 40 yrs) Quit status (tobacco): has quit using tobacco Year quit tobacco: 2019 Second hand smoke exposure: Yes Alcohol intake: never Lives independently: Yes Household members: family Marital status: / Current occupational status: retired History of recent travel: No Current gender identity: Female Special jones needs: No Agree to transfusion: Yes Female Reproductive History Spontaneous abortions: No Data Anesthesia Cardiac Studies: No Data to Display
--- NOTE | 2022-03-24 08:11 | W.PM.OPSFHP ---
Same Day Surgery H&P Indication for Procedure/HPI DATE OF PROCEDURE: March 24, 2022 CHIEF COMPLAINT/INDICATIONFOR SURGICAL PROCEDURE: History of colon cancer PREOP DIAGNOSIS: History of right hemicolectomy for colon cancer PLANNED PROCEDURE: Operation Date: 03/24/22 08:30 Proposed Procedures p Colonoscopy 16044,Z85.038(Not Applicable) - Isaias Sky MD 01/20/2022 This is a pleasant 66 years old female patient well-known to me, status post laparoscopic right hemicolectomy for colon cancer back in 2018.? Patient is here today to discuss surveillance colonoscopy.? She had one back in 2020 and a tubular adenoma was identified.? Patient overall denies any constitutional symptoms or bleeding per rectum.? She has been following with Dr. Martinez for her colon cancer surveillance. 01/22/2022 Patient comes today for surveillance colonoscopy ROS All systems have been reviewed negative except as for the above or per problem list. Medications/Allergies* Home Medications Medication Instructions Recorded Confirmed Type loratadine 10 mg tablet (Allergy 10 mg PO QDAY 05/09/19 03/24/22 History Relief (loratadine)) apixaban 5 mg tablet (Eliquis) 5 mg PO BID 03/12/22 03/24/22 History citalopram 40 mg tablet 40 mg PO DAILY 03/12/22 03/24/22 History pantoprazole 40 mg tablet,delayed 40 mg PO DAILY 03/12/22 03/24/22 History release tizanidine 4 mg tablet 4 mg PO Q8H PRN Muscle Spasm 03/12/22 03/24/22 History trazodone 100 mg tablet 100 mg PO BEDTIME 03/12/22 03/24/22 History Allergies/Adverse Reactions Allergy/AdvReac Type Severity Reaction Status Date / Time aspirin Allergy Unknown Unknown Verified 03/24/22 08:12 naproxen [From Aleve] Allergy Unknown unknown Verified 03/24/22 08:12 Penicillins Allergy Unknown Unknown Verified 03/24/22 08:12 Sulfa (Sulfonamide Allergy Unknown Unknown Verified 03/24/22 08:12 Antibiotics) Current Medications: Generic Name Dose Route Start Last Admin Trade Name Freq PRN Reason Stop Dose Admin Sodium Chloride 1,000 mls @ 30 mls/hr 03/24/22 07:00 03/24/22 07:19 Sodium Chloride 0.9% IV 30 mls/hr .Q24H EVA Administration Pertinent History/Comorbid Conditions* Medical History (Updated 01/24/22 @ 06:40 by Isaias Sky MD) Ankylosing spondylitis Chronic GERD Chronic kidney disease, stage 1 Colon cancer Colon cancer Colon polyp COPD (chronic obstructive pulmonary disease) Depression DVT (deep venous thrombosis) Dyslipidemia History of colon cancer Rheumatoid arthritis Vitamin B12 deficiency Vitamin D deficiency Surgical History (Updated 04/20/20 @ 17:45 by SAE Martin) History of colon resection S/P breast biopsy S/P hysterectomy Family History (Updated 11/17/21 @ 11:28 by Perla Tucker LPN) Diabetes Father CAD (coronary artery disease) Grandmother Heart disease Grandmother Hyperlipidemia Brother Cancer Mother Hypertension Brother Denies family history of Clotting disorder Dementia Psychiatric illness Chronic kidney disease (CKD) Suicide Anesthesia complication Bleeding disorder Lung disease Stroke Social History Smoking and tobacco status: former smoker (smoked 1.5 PPD x 40 yrs) Quit status (tobacco): has quit using tobacco Year quit tobacco: 2018 Second hand smoke exposure: Yes Alcohol intake: never Lives independently: Yes Household members: family Marital status: / Current occupational status: retired History of recent travel: No Current gender identity: Female Special jones needs: No Agree to transfusion: Yes Pertinent Exam Findings alert, regular rate & rhythm and procedure specific exam findings (Abdominal exam nontender nondistended) Recommendations Surgery/Procedure today (Colonoscopy with possible bx) Coding Level of Care Code Acute Track Broom Operator for Shauna Mejía
[2022-03-24 09:03] VITALS: BP 148/77; PULSE 79; RESP 18; TEMP 36.2; O2SAT 99
[2022-03-24 09:13] VITALS: BP 137/77; PULSE 82; RESP 18; O2SAT 99
--- NOTE | 2022-03-24 15:57 | ANE.PACU2 ---
Inpatient post-anesthesia follow up: Airway intact: Yes Vital signs: Temperature 97.1 F Pulse Rate 82 Respiratory Rate 18 Blood Pressure 137/77 Pulse Oximetry 99 Oxygen Delivery Me thod Room Air Oxygen Flow Rate Fraction of Inspir ed Oxygen Hydration adequate: Yes Nausea and vomiting: No Pain level: 1 Mental status: Baseline
== END 2022-03-24 09:28 | disposition home or self-care (01) ==
PROVIDERS: PCP Nurse Practitioner Family; Visit Provider Surgery
PROC: 0DJD8ZZ Inspection of Lower Intestinal Tract, Via Natural or Artificial Opening Endoscopic (ICD-10-PCS; CPT 45378; principal; 2022-03-24 08:30)
DX: Z12.11 Encounter for screening for malignant neoplasm of colon (principal); Z85.038 Personal history of other malignant neoplasm of large intestine; Z90.49 Acquired absence of other specified parts of digestive tract; K21.9 Gastro-esophageal reflux disease without esophagitis; Z86.718 Personal history of other venous thrombosis and embolism; N18.9 Chronic kidney disease, unspecified; E78.5 Hyperlipidemia, unspecified; M06.9 Rheumatoid arthritis, unspecified; Z87.891 Personal history of nicotine dependence
CPT/HCPCS: G0121; J2704; J7030

== ENCOUNTER → 2022-03-31 09:47 | Outpatient (BNVA) | payer MEDICARE, MEDICAID, SELFPAY | PROVIDERS: PCP Nurse Practitioner Family; Visit Provider Surgery | DX: Z09 Encounter for follow-up examination after completed treatment for conditions other than malignant neoplasm (principal); C18.9 Malignant neoplasm of colon, unspecified | CPT/HCPCS: 99213 ==

== ENCOUNTER → 2022-04-26 09:59 | Outpatient (BNVA) | payer MEDICARE, MEDICAID, SELFPAY | PROVIDERS: PCP Nurse Practitioner Family; Visit Provider Family Medicine | DX: R79.89 Other specified abnormal findings of blood chemistry (principal); R73.09 Other abnormal glucose | CPT/HCPCS: 80048; 83036 ==

== ENCOUNTER → 2022-06-04 10:58 | Outpatient (BNVA) | payer MEDICARE, MEDICAID, SELFPAY | PROVIDERS: PCP Family Medicine; Visit Provider Family Medicine | DX: C18.2 Malignant neoplasm of ascending colon (principal); J44.9 Chronic obstructive pulmonary disease, unspecified; M06.9 Rheumatoid arthritis, unspecified; E53.8 Deficiency of other specified B group vitamins; E55.9 Vitamin D deficiency, unspecified; K21.9 Gastro-esophageal reflux disease without esophagitis; G47.00 Insomnia, unspecified | CPT/HCPCS: 80053; 82306; 82378; 82607; 85025 ==

== ENCOUNTER 2022-06-08 12:55 | Oncology outpatient (recurring) (ONCR) | payer MEDICARE, MEDICAID, SELFPAY | END 2022-06-08 23:59 | disposition home or self-care (01) | PROVIDERS: PCP Family Medicine; Visit Provider Internal Medicine Hematology & Oncology | DX: Z08 Encounter for follow-up examination after completed treatment for malignant neoplasm (principal); Z85.038 Personal history of other malignant neoplasm of large intestine; Z92.21 Personal history of antineoplastic chemotherapy; Z90.49 Acquired absence of other specified parts of digestive tract; Z86.718 Personal history of other venous thrombosis and embolism; Z79.01 Long term (current) use of anticoagulants; E87.6 Hypokalemia; Z79.899 Other long term (current) drug therapy | CPT/HCPCS: 99214 ==

== ENCOUNTER 2022-06-19 05:56 | Outpatient (CLI) | payer MEDICARE, MEDICAID, SELFPAY ==
--- NOTE | 2022-06-19 08:30 | PETR_ITS ---
PROCEDURE INFORMATION: Exam: PET/CT Skull Base to Mid-thigh Exam date and time: 06/19/2022 9:23 AM Age: 67 years old Clinical indication: Condition or disease; Primary cancer: Malignant neoplasm of the ascending colon; Prior surgery; Additional info: Increasing cea, mervin LABS AND CLINICAL REPORTS: Glucose: 103 mg/dl Treatment strategy for malignancy (PET staging): PS: Restaging. TECHNIQUE: Imaging protocol: Following at least four-hour fasting and following the injection of F-18-FDG, low dose CT images were obtained. Then, PET images were obtained. Attenuation corrected images were constructed using the CT scan. Fused images of PET and CT were reviewed. The standardized uptake values (SUV) reported below are maximum values within a region of interest, expressed in gm/ml. Exam includes orbital meatal line to mid-thigh. Radiopharmaceutical: 13.91 mCi F-18 FDG (Fluorodeoxyglucose), IV. Time of imaging post radiopharmaceutical administration: 1 hour Injection site: Left AC COMPARISON: PT PET Scan 08/12/2018 1:34 PM FINDINGS: Brain: Visualized brain has normal physiologic uptake. Pharynx: No abnormal uptake. Larynx: No abnormal uptake. Lungs, pleura and trachea: Hypermetabolic right lower lobe pulmonary nodules with SUV max of 6. There are 2 adjacent nodules in this region, each measuring approximately 1 and 1.2 cm. Moderate centrilobular emphysema. The previously noted small nodules in the right lung apex now appear more consistent with an area of scarring. Calcified granulomas in the left lung. Heart: Normal physiologic uptake. Mediastinal space: No abnormal uptake. Liver: Multiple hypermetabolic liver lesions are seen with SUV max 11.5. Index lesion in the right hepatic lobe measures up to 3.2 cm. Gallbladder and bile ducts: No abnormal uptake. Pancreas: No abnormal uptake. Spleen: No abnormal uptake. Adrenal glands: Bilateral hypermetabolic adrenal nodules with SUV max 8.7. The left adrenal nodule measures up to 2.7 cm. The right adrenal nodule measures up to 1.1 cm. Kidneys and ureters: Normal physiologic uptake. Stomach and bowel: Postsurgical changes of right hemicolectomy. Reproductive: Hysterectomy. Vasculature: No abnormal uptake. Lymph nodes: Hypermetabolic mediastinal and right hilar lymph nodes are seen with SUV max 8.6. Index subcarinal lymph node measures up to 3 cm. Bones/joints: Small foci of increased SUV uptake are seen in the region of the left L5-S1 facet (SUV max 5.1) and right iliac bone (SUV max 4.4). No definite associated lytic lesions are seen. Soft tissues: No abnormal uptake in the visualized head, neck, chest, abdomen, pelvis, and extremities. PET/PET skulltothigh INITIAL [id number] IMPRESSION: 1. Malignant range FDG activity is seen within mediastinal and hilar lymph nodes, right lower lobe pulmonary nodules, multiple liver lesions, and bilateral adrenal nodules, concerning for metastatic disease. 2. Small foci of increased SUV uptake are seen in the region of the left L5-S1 facet and right iliac bone, which could reflect small osseous metastases, though no discrete lytic lesions are seen.
== END 2022-06-19 05:57 | disposition home or self-care (01) ==
LOC: RAD 06-21 05:56
PROVIDERS: PCP Family Medicine; Visit Provider Internal Medicine Hematology & Oncology
DX: C18.2 Malignant neoplasm of ascending colon (principal)
CPT/HCPCS: 78815; A9552

== ENCOUNTER 2022-07-02 08:54 | Oncology outpatient (recurring) (ONCR) | payer MEDICARE, MEDICAID, SELFPAY ==
[2022-07-02 09:43] LABS: Carcinoembryonic Antigen 164.9 ng/mL (0.0-4.7)
[2022-07-02 09:54] LABS: Alanine Aminotransferase 9 U/L (0-33); Albumin Level 3.9 g/dL (3.5-5.2); Alkaline Phosphatase 94 U/L (35-105); Aspartate Amino Transferase 17 U/L (0-32); Blood Urea Nitrogen 11 mg/dL (8-23); Calcium 9.1 mg/dL (8.5-10.5); Carbon Dioxide 28 mmol/L (22-29); Chloride 104 mmol/L (98-107); Globulin 2.9 g/dL (1.3-4.6); Glomerular Filtration Rate 55.3 mL/min (90-130); Glucose 89 mg/dL (65-115); Osmolality Calculated 293 mOsm/kg (285-295); Sodium 142 mmol/L (136-145); Total Bilirubin 0.3 mg/dL (0.15-1.2); Total Protein 6.8 g/dL (6.6-8.7)
== END 2022-07-09 23:59 | disposition home or self-care (01) ==
LOC: ONCMED 08:55
PROVIDERS: PCP Family Medicine; Visit Provider Internal Medicine Hematology & Oncology
DX: C18.2 Malignant neoplasm of ascending colon; C77.8 Secondary and unspecified malignant neoplasm of lymph nodes of multiple regions; C78.01 Secondary malignant neoplasm of right lung; C78.7 Secondary malignant neoplasm of liver and intrahepatic bile duct; C79.72 Secondary malignant neoplasm of left adrenal gland; C79.71 Secondary malignant neoplasm of right adrenal gland; R63.4 Abnormal weight loss; Z68.1 Body mass index [BMI] 19.9 or less, adult; G62.0 Drug-induced polyneuropathy; T45.1X5A Adverse effect of antineoplastic and immunosuppressive drugs, initial encounter; Z79.899 Other long term (current) drug therapy; Z87.891 Personal history of nicotine dependence
CPT/HCPCS: 36415; 80053; 82378; 99214

== ENCOUNTER 2022-07-27 11:48 | Outpatient (CLI) | payer MEDICARE, MEDICAID, SELFPAY ==
[2022-07-23 10:19] VITALS: BMI 18.1
[2022-07-27] VITALS (15 sets, daily range): BP systolic 116–142; BP diastolic 61–77; PULSE 43–86; RESP 16–24; TEMP 36.2–36.9; O2SAT 93–100
[2022-07-27] MEDS: sodium chloride 0.9% 1,000 ML 30 ML IV (12:33)
[2022-07-27 13:02] LABS: INR 1.08 (0.8-1.2)
--- NOTE | 2022-07-27 13:30 | US_ITS ---
WS: [id number] ULTRASOUND-GUIDED LIVER BIOPSY. INDICATION: Liver metastasis. TECHNIQUE: Conscious sedation was utilized. Timeout was performed. The procedure including risks, benefits, and complications were discussed with the patient who agreed to proceed. Patient was prepped and draped in usual sterile fashion. After 1% lidocaine, using ultra sound guidance, seven 18-gauge cores were obtained from a dominant anterior liver lesion. No immediat e complications. 15 minutes post biopsy demonstrates no significant hemorrhage or hematoma. US/US biopsy liver [id number] IMPRESSION: 1. Uncomplicated ultrasound-guided liver biopsy. 2. Pathology is pending.
[2022-07-27] MEDS: midazolam 1 mg/mL INJ 2 mL IVP ×2 (13:59→14:05)
[2022-07-27] MEDS: fentaNYL 50 mcg/mL INJ 2mL 25 MCG IVP ×2 (14:00→14:05)
--- NOTE | 2022-07-27 15:03 | PC.NURSE ---
10ml 1% lidocaine used for local sedation during procedure
== END 2022-07-27 15:20 | disposition home or self-care (01) ==
PROVIDERS: Radiology Neuroradiology; PCP Family Medicine; Visit Provider Internal Medicine Hematology & Oncology
DX: C78.7 Secondary malignant neoplasm of liver and intrahepatic bile duct (principal); C18.9 Malignant neoplasm of colon, unspecified
CPT/HCPCS: 36415; 47000; 76942; 85610; 88184; 88307; 88341; 88342; 88360; 96374; 96375; J2250; J3010; J7030

== ENCOUNTER → 2022-08-19 10:40 | Outpatient (BNVA) | payer MEDICARE, MEDICAID, SELFPAY | PROVIDERS: PCP Family Medicine; Visit Provider Internal Medicine Hematology & Oncology | DX: C18.9 Malignant neoplasm of colon, unspecified (principal) | CPT/HCPCS: 80053; 82378; 85025 ==

== ENCOUNTER → 2022-09-02 10:27 | Outpatient (BNVA) | payer MEDICARE, MEDICAID, SELFPAY | PROVIDERS: PCP Family Medicine; Visit Provider Family Medicine | DX: C18.9 Malignant neoplasm of colon, unspecified (principal) | CPT/HCPCS: 80053; 82378; 85025 ==

== ENCOUNTER 2022-09-03 08:52 | Oncology outpatient (recurring) (ONCR) | payer MEDICARE, MEDICAID, SELFPAY | END 2022-09-08 23:59 | disposition home or self-care (01) | PROVIDERS: PCP Family Medicine; Visit Provider Internal Medicine Hematology & Oncology | DX: C18.2 Malignant neoplasm of ascending colon (principal); C77.8 Secondary and unspecified malignant neoplasm of lymph nodes of multiple regions; C78.01 Secondary malignant neoplasm of right lung; C78.7 Secondary malignant neoplasm of liver and intrahepatic bile duct; C79.72 Secondary malignant neoplasm of left adrenal gland; C79.71 Secondary malignant neoplasm of right adrenal gland; R63.4 Abnormal weight loss; Z68.1 Body mass index [BMI] 19.9 or less, adult; Z79.899 Other long term (current) drug therapy; Z87.891 Personal history of nicotine dependence; Z92.21 Personal history of antineoplastic chemotherapy; Z90.49 Acquired absence of other specified parts of digestive tract; Z86.718 Personal history of other venous thrombosis and embolism | CPT/HCPCS: 99214 ==

== ENCOUNTER 2022-09-08 13:01 | Emergency (ER) | payer MEDICARE, MEDICAID, SELFPAY ==
[2022-09-08 13:22] VITALS: BP 82/52; PULSE 82; RESP 16; TEMP 36.6; O2SAT 93; BMI 17.5
[2022-09-08 13:51] VITALS: BP 96/53; RESP 18; O2SAT 94
--- NOTE | 2022-09-08 13:51 | PC.NURSE ---
PATIENT PLACED IN [place].
[2022-09-08 14:20] VITALS: BP 99/56; RESP 18; O2SAT 92
--- NOTE | 2022-09-08 14:53 | ED_ITS ---
HPI - Recheck/Abnormal Lab/Rx General: Chief Complaint: Recheck/Abnormal Lab/Rx Stated Complaint: low B/P Time Seen by Provider: 09/08/22 14:14 Source: patient and family Mode of arrival: ambulatory Limitations: no limitations History of Present Illness: Patient was brought to the emergency department with family at the urging of her primary care doctor staff. History is obtained from her youngest daughter as well as the patient. She has a history of colon cancer that was previously treated and in remission however recently has discovered to have what it sounds like from the history obtained a another primary cancer in her right lung. She also apparently has a liver tumor as well. She is been seen in stage by oncology and plan for initiating treatment within the next couple of weeks. The reason she is in the emergency department is because she has had lower blood pressures recently and most significantly this morning in the 80s systolic range. She had an associated symptoms of feeling weak as well as steady on her feet. She apparently had episodes of vomiting intermittently over the past 3 to 4 days that precluded her current presentation. She has not had any fevers or chills blood in her stools black tarry stools etc. He is a prior smoker. No new exposure to infectious disease. She does not take any antihypertensive medications. Review of Systems Const: Reports: change in weight and fatigue; Denies: fever(s), chills or body aches Eyes: Denies: change in vision ENMT: Denies: odynophagia, nasal discharge or nasal congestion Card: Reports: lightheadedness and pre-syncope; Denies: chest pain, palpitations, irregular heart rhythm or dyspnea on exertion Resp: Denies: dyspnea, productive cough, non-productive cough or wheezing GI: Reports: nausea and vomiting; Denies: hematemesis, dysphagia or hematochezia : Denies: flank pain, difficulty voiding, dysuria or urinary frequency Musc: Denies: neck pain, back pain, extremity pain or extremity swelling Skin/Breast: Denies: rash Neuro: Denies: headache(s), numbness in extremities, weakness in extremities, Slurred speech present, difficulty communicating thoughts or seizure-like activity PFS ED PFSH: Medical History Ankylosing spondylitis Chronic GERD Chronic kidney disease, stage 1 Colon cancer Colon cancer Colon polyp COPD (chronic obstructive pulmonary disease) Depression DVT (deep venous thrombosis) Dyslipidemia History of colon cancer Rheumatoid arthritis Vitamin B12 deficiency Vitamin D deficiency Surgical History History of colon resection S/P breast biopsy S/P hysterectomy Family History Father Diabetes Mother Cancer Grandmother Heart disease CAD (coronary artery disease) Brother Hyperlipidemia Hypertension Denies family history of Clotting disorder Dementia Psychiatric illness Chronic kidney disease (CKD) Suicide Anesthesia complication Bleeding disorder Lung disease Stroke Social History Smoking and tobacco status: former smoker (smoked 1.5 PPD x 40 yrs) Quit status (tobacco): has quit using tobacco Year quit tobacco: 2019 Second hand smoke exposure: Yes Alcohol intake: never Lives independently: Yes Household members: family Marital status: / Current occupational status: retired Current gender identity: Female Special jones needs: No Agree to transfusion: Yes Female Reproductive History: Spontaneous abortions: No Physical Exam Narrative: EXAM NARRATIVE: She is alert and answers questions in an appropriate goal-directed fashion. She makes good eye contact. Const: COMMON NORMALS: no acute distress, patient oriented x3 and alert GENERAL APPEARANCE: cooperative and comfortable NUTRITIONAL APPEARANCE: thin HENMT: COMMON NORMALS: normocephalic, atraumatic, Normal nasal mucous membranes and turbinates present, moist oral mucous membranes and oropharynx normal HEAD & SCALP: normocephalic and atraumatic FACE & SINUS: normal facial exam NOSE: Normal nasal mucous membranes and turbinates present Eye: COMMON NORMALS: Equal, round and reactive pupils present, EOMs intact bilaterally and conjunctivae normal CONJUNCTIVA: Yes conjunctivae normal PUPIL: Yes Equal, round and reactive pupils present Neck/C-Spine: COMMON NORMALS: full ROM, no lymphadenopathy, Thyroid normal and No carotid bruits THYROID: Thyroid normal Chest: COMMONS NORMALS: normal inspection of the chest Resp: COMMON NORMALS: normal respiratory effort and No use of accessory muscles EFFORT & INSPECTION: Yes able to speak in complete sentences AUSCULTATION: diminished lung sounds Cardio: COMMON NORMALS: regular rate, regular rhythm, No murmurs present (Cardio) and Peripheral pulses 2+ throughout RATE: regular rate RHYTHM: regular rhythm PERIPHERAL PULSES: Peripheral pulses 2+ throughout GI: COMMON NORMALS: Normal to inspection, nondistended, normoactive bowel sounds present, Soft to palpation and non-tender PALPATION: Yes Soft to palpation : COMMON NORMALS: Yes no CVA tenderness BLADDER/KIDNEY EXAM: Yes no CVA tenderness Back/Pelvis: COMMON NORMALS: no CVA tenderness, thoracic and lumbar spine normal to inspection and no thoracic nor lumbar tenderness Extremity: COMMON NORMALS: normal to inspection, full ROM, capillary refill normal, no joint enlargement, no clubbing, cyanosis or edema and no calf tenderness Neuro: COMMON NORMALS: patient oriented x3, moves all extremities, no focal motor deficits and no sensory deficits noted SENSORIUM/ORIENTATION: Yes alert CRANIAL NERVES: Yes CN normal except as noted Psych: COMMON NORMALS: mental status grossly normal Skin: COMMON NORMALS: no rashes or lesions noted, no wounds and turgor normal GENERAL SKIN EXAM: no rashes or lesions noted and turgor normal Course Reevaluation(s): Reevaluation #1: Initial EKG showed nonspecific and ST wave depressions of uncertain etiology. No prior tracings available in this facility for comparison. We will go ahead and add high-sensitivity troponins to ensure that there is no occult ACS contributing to her presentation. Time: 15:32 Reevaluation #2: The patient has received IV fluids, ambulated about the emergency part without difficulty. Her blood pressure is much improved after IV fluids and observation. He has not displayed any arrhythmias or any other concerning f indings. We reviewed all her laboratories with both she and her family. Her hemoglobin is lower than it has been in the past few weeks but not to the point that we would recommend transfusion at this time. She does have an oncology follow-up this Tuesday and I think they will be able to follow-up on her anemia and determine if additional work-up of that condition is necessary or this is entirely related to her underlying diagnosis. She is stable at this time and very desirous to be discharged from the emergency department. Time: 19:14 Vital Signs: Vital signs: Vital Signs Temperature 97.9 F 09/08/22 13:22 Pulse Rate 83 09/08/22 18:53 Respiratory Rate 18 09/08/22 18:53 Blood Pressure 138/74 09/08/22 18:53 Pulse Oximetry 92 09/08/22 18:53 Oxygen Delivery Me thod Room Air 09/08/22 18:53 MDM - Recheck/Abnormal Lab/Rx Medical Decision Making Patient came to the emergency department company by her family. Primarily concern was lower blood pressures than normal and fatigue. Have a history and a recent diagnosis of small cell carcinoma of the lung and is pending oncology initiation of therapy this coming week. Denies any fevers or chills nausea vomiting or diarrhea chest pains or shortness of breath. Her evaluation revealed her to be mildly hypotensive on presentation without any tachycardia hypoxia or other concerning findings. Her clinical exam revealed her to be thin with mildly dry mucous membranes and slightly decreased skin turgor. But no other concerning findings initially. She received the benefit of IV hydration as well as other ancillary studies. Her serial troponins are reassuring. Her serial EKGs revealed no dynamic changes she did have persistent nonspecific ST-T wave changes but in the light of being symptom-free and also without any troponin changes is unlikely that this represents any ongoing ischemia at this time. She did respond well to IV fluids despite not having any biochemical evidence regarding BUN/creatinine ratio that would suggest volume depletion but clinically she appeared volume depleted and dry. She was more anemic than she has been in the past but again given the history of no coronary disease or other worrisome findings not to the point where we would normally transfuse her. She was markedly improved and desired to be discharged in the hospital I think that is appropriate at this time. She has an oncology follow-up this coming Tuesday and we have answered all questions of both she and her very attentive family Medical Records I reviewed the patient's medical records. Reviewed most recent note from oncology regarding treatment plan for her current cancer. Lab Data I reviewed the patient's lab results. 09/08/22 15:40 09/08/22 15:40 Laboratory Results WBC 11.0 10^3/uL (4.0-10.0) H 09/08/22 15:40 RBC 2.56 10^6/uL (4.1-5.3) L 09/08/22 15:40 Hgb 8.3 g/dL (11.5-15.3) L 09/08/22 15:40 Hct 26.0 % (37.0-47.0) L 09/08/22 15:40 MCV 101.6 fl (81-99) H 09/08/22 15:40 MCH 32.4 pg (28.0-34.0) 09/08/22 15:40 MCHC 31.9 g/dL (30.0-36.0) 09/08/22 15:40 RDW 15.3 % (12.1-15.1) H 09/08/22 15:40 Plt Count 236 10^3/cmm (130-400) 09/08/22 15:40 MPV 10.2 fL (7.4-10.4) 09/08/22 15:40 Neut % (Auto) 77.0 % 09/08/22 15:40 Lymph % (Auto) 13.5 % 09/08/22 15:40 [place] % (Auto) 8.6 % 09/08/22 15:40 Eos % (Auto) 0.2 % 09/08/22 15:40 Baso % (Auto) 0.2 % 09/08/22 15:40 Neut # (Auto) 8.47 10^3/uL (1.8-7.7) H 09/08/22 15:40 Lymph # (Auto) 1.5 10^3/uL (0.8-4.8) 09/08/22 15:40 [place] # (Auto) 1.0 10^3/uL (0.2-0.9) H 09/08/22 15:40 Eos # (Auto) 0.0 10^3/uL (0.0-0.8) 09/08/22 15:40 Baso # (Auto) 0.0 10^3/uL (0.0-0.1) 09/08/22 15:40 Nucleated RBC % (auto) 0 % 09/08/22 15:40 Nucleated RBCs # 0.0 /100WBC 09/08/22 15:40 Sodium 141 mmol/L (136-145) 09/08/22 15:40 Potassium 3.7 mmol/L (3.5-5.1) 09/08/22 15:40 Chloride 103 mmol/L (98-107) 09/08/22 15:40 Carbon Dioxide 29 mmol/L (22-29) 09/08/22 15:40 Anion Gap 12.7 (5-19) 09/08/22 15:40 BUN 7 mg/dL (8-23) L 09/08/22 15:40 Creatinine 0.7 mg/dL (0.5-0.9) 09/08/22 15:40 GFR Calculation 83.5 mL/min (90-130) L 09/08/22 15:40 Glucose 74 mg/dL (65-115) 09/08/22 15:40 Calculated Osmolality 289 mOsm/kg (285-295) 09/08/22 15:40 Calcium 8.1 mg/dL (8.5-10.5) L 09/08/22 15:40 Magnesium 1.7 mg/dL (1.7-2.3) 09/08/22 15:40 Total Bilirubin 0.8 mg/dL (0.15-1.2) 09/08/22 15:40 AST 58 U/L (0-32) H 09/08/22 15:40 ALT 22 U/L (0-33) 09/08/22 15:40 Alkaline Phosphatase 340 U/L (35-105) H 09/08/22 15:40 Troponin T Baseline 7 ng/L (0-10) 09/08/22 15:40 Troponin T 120 Minute 7.24 ng/L (0-10) 09/08/22 17:43 Delta Troponin T 0.24 ABS# (0-10) 09/08/22 17:43 Total Protein 4.7 g/dL (6.6-8.7) L 09/08/22 15:40 Albumin 2.6 g/dL (3.5-5.2) L 09/08/22 15:40 Globulin 2.1 g/dL (1.3-4.6) 09/08/22 15:40 TSH 4.08 uIU/mL (0.27-4.20) 09/08/22 15:40 EKG Data EKG 1: I personally reviewed and interpreted this EKG as follows: Interpretation: Contemporaneous review of resting EKG reveals ventricular rate of 81 bpm. Borderline short [place] interval at 119 ms. QRS duration is normal. Normal corrected QT interval. Normal axis. She has a loss of R wave forces anteriorly of uncertain etiology. Also has nonspecific ST-T wave changes with some T wave depression in lateral leads. No prior tracings available for comparison. Discharge Plan Discharge Patient Disposition: Home Clinical Impression: Metastatic non-small cell lung cancer, Anemia, Fluid volume depletion Condition: Stable Prescriptions: No Action diphenhydramine HCl [Benadryl] 25 mg capsule 25 mg PO BEDTIME tramadol 50 mg tablet 50 mg PO Q6H PRN (Reason: pain) 30 Days Qty: 120 2RF budesonide-formoterol [Symbicort] 160-4.5 mcg/actuation HFA aerosol inhaler 2 puff inhalation BID Qty: 10.2 6RF Eliquis 5 mg tablet 5 mg PO BID Qty: 60 4RF Hold Instructions: Resume on 07/28/22. Rx Instructions: Take 1 tablet by mouth twice daily citalopram 40 mg tablet 40 mg PO DAILY Qty: 90 2RF Rx Instructions: Take 1 tablet by mouth once daily trazodone 100 mg tablet 100 mg PO BEDTIME Qty: 30 4RF Rx Instructions: TAKE 1 TABLET BY MOUTH AT BEDTIME ONCE DAILY tizanidine 4 mg tablet 4 mg PO Q8H PRN (Reason: Muscle Spasm) Qty: 90 2RF Rx Instructions: TAKE 1 TABLET BY MOUTH EVERY 8 HOURS NEEDED FOR MUSCLE SPASM pantoprazole 40 mg tablet,delayed release (DR/EC) See Rx Instructions .ROUTE .COMPLEX Qty: 90 0RF Dose Instruction: Take 1 tablet by mouth once daily Rx Instructions: Take 1 tablet by mouth once daily cyanocobalamin (vitamin B-12) 1,000 mcg/mL solution 1,000 mcg IM .monthly Qty: 1 6RF ergocalciferol (vitamin D2) 1,250 mcg (50,000 unit) capsule 1,250 mcg PO .weekly Qty: 12 1RF Discharge Orders: Discharge ED (Routine); Ordered 09/08/22 Ordered By: Darryl Lazo Referrals: Gina Jacob MD [Primary Care Provider] - Discharge Diet: Usual diet Discharge Activity: Increase activity as tolerated Patient Instructions: Opioid Safety, Pain Management Activity Restrictions/Additional Instructions: As we discussed is important that you keep well-hydrated with water in addition to your other fluids. We recommend drinking at least 64 ounces of water and perhaps more on a daily basis. Follow-up with oncology this coming Tuesday as scheduled. If prior to that time or any other time you experience recurrent episodes of weakness shortness of breath feeling lightheaded or like you might pass out return to this or the nearest emergency department for reevaluation. Coding Level of Care Code ED [employer] for Shauna Mejía
[2022-09-08] MEDS: lactated ringers 1,000 ML 999 ML IV (15:05)
[2022-09-08 15:07] VITALS: BP 104/56; PULSE 81; RESP 18; O2SAT 92
--- NOTE | 2022-09-08 15:15 | ECG_ITS ---
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 Measurements Intervals [place] Rate: 81 P: 58 IN: 119 QRS: 33 QRSD: 86 T: -48 QT: 393 QTc: 458 Interpretive Statements SINUS RHYTHM WITH SHORT IN INTERVAL POSSIBLE ANTERIOR MYOCARDIAL INFARCTION , OF INDETERMINATE AGE [30 ms Q WAVE IN V3/V4, OR R < 0.2 mV IN V4] MODERATE T-WAVE ABNORMALITY, CONSIDER LATERAL ISCHEMIA [-0.1+ mV T-WAVE IN I/aVL/V5/V6] MODERATE T-WAVE ABNORMALITY, CONSIDER INFERIOR ISCHEMIA [-0.1+ mV T-WAVE IN II/aVF] No previous ECG available for comparison Electronically Signed On 09-09-2022 7:23:15 CDT by Karen Tinajero M.D. [email or web address] [email or web address]/store/[id number]
[2022-09-08 15:56] VITALS: BP 109/54; RESP 18; O2SAT 91
[2022-09-08 15:56] LABS: Basophils % 0.2 %; Eosinophils % 0.2 %; Hemoglobin 8.3 g/dL (11.5-15.3); Lymphocytes # 1.5 10^3/uL (0.8-4.8); Lymphocytes % 13.5 %; Mean Corpuscular HGB Conc 31.9 g/dL (30.0-36.0); Mean Corpuscular Hemoglobin 32.4 pg (28.0-34.0); Mean Corpuscular Volume 101.6 fl (81-99); Mean Platelet Volume 10.2 fL (7.4-10.4); Monocytes % 8.6 %; Neutrophils # 8.47 10^3/uL (1.8-7.7); Nucleated Red Blood Cells % 0 %; Platelet Count 236 10^3/cmm (130-400); Red Blood Count 2.56 10^6/uL (4.1-5.3); Red Cell Distribution Width 15.3 % (12.1-15.1)
[2022-09-08 16:57] LABS: Alanine Aminotransferase 22 U/L (0-33); Albumin Level 2.6 g/dL (3.5-5.2); Alkaline Phosphatase 340 U/L (35-105); Anion Gap 12.7 (5-19); Aspartate Amino Transferase 58 U/L (0-32); Blood Urea Nitrogen 7 mg/dL (8-23); Calcium 8.1 mg/dL (8.5-10.5); Carbon Dioxide 29 mmol/L (22-29); Chloride 103 mmol/L (98-107); Globulin 2.1 g/dL (1.3-4.6); Glomerular Filtration Rate 83.5 mL/min (90-130); Glucose 74 mg/dL (65-115); Magnesium 1.7 mg/dL (1.7-2.3); Osmolality Calculated 289 mOsm/kg (285-295); Potassium 3.7 mmol/L (3.5-5.1); Sodium 141 mmol/L (136-145); Thyroid Stimulating Hormone 4.08 uIU/mL (0.27-4.20); Total Bilirubin 0.8 mg/dL (0.15-1.2); Total Protein 4.7 g/dL (6.6-8.7)
[2022-09-08 17:17] LABS: Troponin(5th) Baseline 7 ng/L (0-10)
--- NOTE | 2022-09-08 18:01 | ECG_ITS ---
[facility] Test Date: 2022-09-08 Pat Name: Dulce Moran Department: Room: Gender: Female Manager Business: : 1955 Requested By: Darryl Lazo Order Number: [id number] Ramandeep MD: Karen Tinajero M.D. Measurements Intervals [place] Rate: 91 P: 51 DC: 108 QRS: 24 QRSD: 86 T: -29 QT: 400 QTc: 493 Interpretive Statements SINUS RHYTHM WITH SHORT DC INTERVAL LOW QRS VOLTAGE IN PRECORDIAL LEADS [QRS DEFLECTION < 1.0 mV IN CHEST LEADS] POSSIBLE ANTERIOR MYOCARDIAL INFARCTION , OF INDETERMINATE AGE [30 ms Q WAVE IN V3/V4, OR R < 0.2 mV IN V4] MODERATE T-WAVE ABNORMALITY, CONSIDER LATERAL ISCHEMIA [-0.1+ mV T-WAVE IN I/aVL/V5/V6] Compared to ECG 09/08/2022 15:15:25 Low QRS voltage now present Myocardial infarct finding still present T-wave abnormality still present Possible ischemia still present Electronically Signed On 09-09-2022 7:26:05 CDT by Karen Tinajero M.D. [email or web address].[employer]/store/OM/[id number]
[2022-09-08 18:36] LABS: Troponin 5 2HR 7.24 ng/L (0-10)
[2022-09-08 18:53] VITALS: BP 138/74; PULSE 83; RESP 18; O2SAT 92
[2022-09-08 18:53] LABS: Troponin 5 2HR Delta 0.24 ABS# (0-10)
--- NOTE | 2022-09-08 19:16 | PC.NURSE ---
REPORT GIVEN TO MAITE FALL AT 1915.
== END 2022-09-08 20:23 | disposition home or self-care (01) ==
PROVIDERS: Emergency Provider Emergency Medicine; PCP Family Medicine
DX: D64.9 Anemia, unspecified (principal); C78.00 Secondary malignant neoplasm of unspecified lung; E86.9 Volume depletion, unspecified; Z79.01 Long term (current) use of anticoagulants; Z85.038 Personal history of other malignant neoplasm of large intestine; Z87.891 Personal history of nicotine dependence; N18.1 Chronic kidney disease, stage 1; J44.9 Chronic obstructive pulmonary disease, unspecified; E78.5 Hyperlipidemia, unspecified
CPT/HCPCS: 36415; 80053; 83735; 84443; 84484; 85025; 93005; 99285; J7120

== ENCOUNTER 2022-09-14 10:46 | Observation (INO) | payer MEDICARE, MEDICAID, SELFPAY ==
[2022-09-14] VITALS (11 sets, daily range): BP systolic 117–143; BP diastolic 69–77; PULSE 79–93; RESP 12–18; TEMP 36.6–36.7; O2SAT 92–99; BMI 17.5
--- NOTE | 2022-09-14 11:12 | CT_ITS ---
WS: [id number] CT ABDOMEN PELVIS TECHNIQUE: Contrast-enhanced CT of the abdomen and pelvis with coronal and sagittal reformatted image s. CLINICAL INFORMATION: hx of lung/liver cancer, epigastic pain COMPARISON: None. DLP: 305.[address] scans at [facility] use at least one of these dose optimization techniques: automated e xposure control; mA and/or kV adjustment per patient size (includes targeted exams where dose is matc hed to clinical indication); or iterative reconstruction. FINDINGS: Hepatomegaly with diffuse hepatic innumerable metastasis is significantly progressed compar ed to June 19, 2022. Marked enlargement of the liver has progressed. Small amount of surrounding per ihepatic ascites. Spleen appears normal. Bilateral adrenal masses have progressed compared to the noble or PET/CT the largest in the LEFT measuring 4.6 x 3.9 cm compatible with metastatic disease. Lung bases are well aerated. Portal vein and splenic vein are patent. Gallbladder is decompressed and contracted. Normal pancreatic parenchymal enhancement. Moderate aortic calcification. Diffuse body w all anasarca. Small amount of free fluid in the pelvis. Sigmoid diverticulosis. Prior postoperative R IGHT hemicolectomy with anastomosis in the RIGHT abdomen. Enhancing slightly dilated small bowel loop in the pelvis may be infectious or inflammatory. Recommen d correlation for small bowel enteritis. Surrounding free fluid in the pelvis. Tiny esophageal hiata l hernia. CT/CT abdomen pelvis w con* [id number] IMPRESSION: 1. Markedly progressed metastatic disease involving the liver with innumerable metastasis and marked hepatomegaly. 2. Small amount of perihepatic ascites. 3. Progressed bilateral adrenal metastasis largest in the LEFT measuring 4.6 x 3.9 cm described above. 4. Small amount of free fluid in the pelvis with slightly dilated and enhancin g small bowel loop which may be due to infectious or inflammatory enteritis. 5. Prior RIGHT hemicolectomy.
--- NOTE | 2022-09-14 11:14 | W.ED.ABDPA2 ---
HPI - Abdominal Pain General: Chief Complaint: Abdominal Pain Stated Complaint: abd pain, sent from oncology Time Seen by Provider: 09/14/22 11:08 History of Present Illness: Patient presents to the ER for nausea vomiting abdominal pain. Patient went to her oncologist appointment for lung cancer that metastasized to her lymph nodes in her liver and she was in such severe pain they sent her over here for pain medicines and imaging. Patient was seen last week here for dehydration. Patient is currently not on anything for pain. Patient does have a history of colon cancer approximately 5 years in the past. MD elicited complaint: abdominal pain Onset (ago): week(s) (2 weeks ago getting worse) Pain Consistency: constant Location: Epigastric Severity: severe Quality: aching Radiation: none Migration to: no migration Exacerbating factors: movement Relieving factors: nothing Associated Symptoms: Reports nausea and vomiting Review of Systems General: Reports: 10 or more systems reviewed and unremarkable except in HPI and below GI: Reports: nausea and vomiting PFSH ED PFSH: Medical History Ankylosing spondylitis Chronic GERD Chronic kidney disease, stage 1 Colon cancer Colon cancer Colon polyp COPD (chronic obstructive pulmonary disease) Depression DVT (deep venous thrombosis) Dyslipidemia History of colon cancer Rheumatoid arthritis Vitamin B12 deficiency Vitamin D deficiency Surgical History History of colon resection S/P breast biopsy S/P hysterectomy Family History Father Diabetes Mother Cancer Grandmother Heart disease CAD (coronary artery disease) Brother Hyperlipidemia Hypertension Denies family history of Clotting disorder Dementia Psychiatric illness Chronic kidney disease (CKD) Suicide Anesthesia complication Bleeding disorder Lung disease Stroke Social History Smoking and tobacco status: former smoker (smoked 1.5 PPD x 40 yrs) Quit status (tobacco): has quit using tobacco Year quit tobacco: 2019 Second hand smoke exposure: Yes Alcohol intake: never Lives independently: Yes Household members: family Marital status: / Current occupational status: retired Current gender identity: Female Special jones needs: No Agree to transfusion: Yes Female Reproductive History: Spontaneous abortions: No Physical Exam Const: COMMON NORMALS: average body habitus, patient oriented x3, no limitations, healthy appearing, alert and well nourished HENMT: COMMON NORMALS: normocephalic, atraumatic, hearing grossly normal bilaterally, external ears normal, Normal external nose present and moist oral mucous membranes HEAD & SCALP: normocephalic and atraumatic NOSE: Normal external nose present EXTERNAL EAR: Yes external ears normal Eye: COMMON NORMALS: Equal, round and reactive pupils present, EOMs intact bilaterally, conjunctivae normal and no scleral icterus CONJUNCTIVA: Yes conjunctivae normal PUPIL: Yes Equal, round and reactive pupils present Neck/C-Spine: COMMON NORMALS: full ROM, no lymphadenopathy, supple, no meningeal signs, no JVD and Thyroid normal THYROID: Thyroid normal Chest: COMMONS NORMALS: normal inspection of the chest and normal palpation of entire chest wall Resp: COMMON NORMALS: normal respiratory effort, No retractions, No use of accessory muscles and clear to auscultation bilaterally AUSCULTATION: clear to auscultation bilaterally Cardio: COMMON NORMALS: no JVD, regular rate, regular rhythm, S1 normal heart sound present, S2 normal heart sound present, No gallops present (Cardio), No clicks present (Cardio), No murmurs present (Cardio) and No rub (Cardio) RATE: regular rate RHYTHM: regular rhythm HEART SOUNDS: S1 normal heart sound present and S2 normal heart sound present GI: COMMON NORMALS: Soft to palpation and No hepatosplenomegaly present INSPECTION: Yes normal to inspection PALPATION: Yes Soft to palpation, Yes Tenderness to palpation present (GI) Details: other (Epigastric area) and Yes No hepatosplenomegaly present : COMMON NORMALS: Yes no CVA tenderness BLADDER/KIDNEY EXAM: Yes no CVA tenderness Back/Pelvis: COMMON NORMALS: no CVA tenderness Neuro: COMMON NORMALS: patient oriented x3 SENSORIUM/ORIENTATION: Yes alert MENINGEAL SIGNS: Yes no meningeal signs Psych: COMMON NORMALS: mental status grossly normal, Normal thought process present, cooperative, normal affect and speech normal SPEECH: Yes normal speech THOUGHT PROCESS: Normal thought process present Course Vital Signs: Vital signs: Vital Signs Temperature 98.1 F 09/14/22 10:53 Pulse Rate 93 09/14/22 13:06 Respiratory Rate 14 09/14/22 13:06 Blood Pressure 135/72 09/14/22 13:06 Pulse Oximetry 99 09/14/22 13:06 Oxygen Delivery Me thod Room Air 09/14/22 13:06 MDM - Abdominal Pain Medical Decision Making Patient presents with severe epigastric pain secondary to worsening metastatic cancer to the liver. Lab work was obtained which showed patient had a white count of 10.2 hematocrit and hemoglobin of 8.9 and 27.8, BUN/creatinine 12 and 0.7, patient had a contrasted CT scan done that showed markedly progressed metastatic disease involving the liver small amount of perihepatic ascites, progressive bilateral metastases, small amount of free fluid in the pelvis. Dr. Martinez was consulted and said these were all normal occurrences and patient may just have pancreatitis on top of these findings. Dr. Martinez said we will need to anything specific such as radiation and/or pancreatic stent. He would just treat her as pancreatitis and see if she improved. Dr. Joshi was consulted who agreed for admission for further evaluation and treatment. Differential Diagnosis Likely abdominal pain; Unlikely acute appendicitis, calculus of kidney, constipation, diverticulitis, endometriosis, gastroenteritis, pancreatitis or small bowel obstruction Medical Records I reviewed the patient's medical records. Lab Data I reviewed the patient's lab results. 09/14/22 11:45 09/14/22 11:45 Labs/Radiology: Radiology Impressions Abdomen/Pelvis CT 09/14/22 11:12 IMPRESSION: 1. Markedly progressed metastatic disease involving the liver with innumerable metastasis and marked hepatomegaly. 2. Small amount of perihepatic ascites. 3. Progressed bilateral adrenal metastasis largest in the LEFT measuring 4.6 x 3.9 cm described above. 4. Small amount of free fluid in the pelvis with slightly dilated and enhancing small bowel loop which may be due to infectious or inflammatory enteritis. 5. Prior RIGHT hemicolectomy. Laboratory Results WBC 10.2 10^3/uL (4.0-10.0) H 09/14/22 11:45 RBC 2.79 10^6/uL (4.1-5.3) L 09/14/22 11:45 Hgb 8.9 g/dL (11.5-15.3) L 09/14/22 11:45 Hct 27.8 % (37.0-47.0) L 09/14/22 11:45 MCV 99.6 fl (81-99) H 09/14/22 11:45 MCH 31.9 pg (28.0-34.0) 09/14/22 11:45 MCHC 32.0 g/dL (30.0-36.0) 09/14/22 11:45 RDW 16.1 % (12.1-15.1) H 09/14/22 11:45 Plt Count 333 10^3/cmm (130-400) 09/14/22 11:45 MPV 10.8 fL (7.4-10.4) H 09/14/22 11:45 Neut % (Auto) 83.9 % 09/14/22 11:45 Lymph % (Auto) 9.5 % 09/14/22 11:45 [place] % (Auto) 6.1 % 09/14/22 11:45 Eos % (Auto) 0.0 % 09/14/22 11:45 Baso % (Auto) 0.1 % 09/14/22 11:45 Neut # (Auto) 8.53 10^3/uL (1.8-7.7) H 09/14/22 11:45 Lymph # (Auto) 1.0 10^3/uL (0.8-4.8) 09/14/22 11:45 [place] # (Auto) 0.6 10^3/uL (0.2-0.9) 09/14/22 11:45 Eos # (Auto) 0.0 10^3/uL (0.0-0.8) 09/14/22 11:45 Baso # (Auto) 0.0 10^3/uL (0.0-0.1) 09/14/22 11:45 Nucleated RBC % (auto) 0 % 09/14/22 11:45 Nucleated RBCs # 0.0 /100WBC 09/14/22 11:45 Sodium 139 mmol/L (136-145) 09/14/22 11:45 Potassium 3.3 mmol/L (3.5-5.1) L 09/14/22 11:45 Chloride 101 mmol/L (98-107) 09/14/22 11:45 Carbon Dioxide 27 mmol/L (22-29) 09/14/22 11:45 Anion Gap 14.3 (5-19) 09/14/22 11:45 BUN 12 mg/dL (8-23) 09/14/22 11:45 Creatinine 0.7 mg/dL (0.5-0.9) 09/14/22 11:45 GFR Calculation 83.5 mL/min (90-130) L 09/14/22 11:45 Glucose 80 mg/dL (65-115) 09/14/22 11:45 Calculated Osmolality 287 mOsm/kg (285-295) 09/14/22 11:45 Calcium 8.4 mg/dL (8.5-10.5) L 09/14/22 11:45 Total Bilirubin 0.9 mg/dL (0.15-1.2) 09/14/22 11:45 AST 102 U/L (0-32) H 09/14/22 11:45 ALT 29 U/L (0-33) 09/14/22 11:45 Alkaline Phosphatase 394 U/L (35-105) H 09/14/22 11:45 Total Protein 4.9 g/dL (6.6-8.7) L 09/14/22 11:45 Albumin 2.5 g/dL (3.5-5.2) L 09/14/22 11:45 Globulin 2.4 g/dL (1.3-4.6) 09/14/22 11:45 Lipase 203 U/L (13-60) H 09/14/22 11:45 Discharge Plan Discharge Patient Disposition: Admitted As Inpatient Clinical Impression: Acute pancreatitis, Abdominal pain, Metastatic primary lung cancer Condition: Stable Prescriptions: No Action diphenhydramine HCl [Benadryl] 25 mg capsule 25 mg PO BEDTIME tramadol 50 mg tablet 50 mg PO Q6H PRN (Reason: pain) 30 Days Qty: 120 2RF budesonide-formoterol [Symbicort] 160-4.5 mcg/actuation HFA aerosol inhaler 2 puff inhalation BID Qty: 10.2 6RF Eliquis 5 mg tablet 5 mg PO BID Qty: 60 4RF Hold Instructions: Resume on 07/28/22. tizanidine 4 mg tablet 4 mg PO Q8H PRN (Reason: Muscle Spasm) Qty: 90 2RF ketorolac 0.5 % drops See Rx Instructions .ROUTE .COMPLEX Rx Instructions: as directed prednisolone acetate 1 % drops,suspension See Rx Instructions .ROUTE .COMPLEX Rx Instructions: as directed ciprofloxacin HCl 0.3 % drops See Rx Instructions .ROUTE .COMPLEX Rx Instructions: as directed albuterol sulfate 90 mcg/actuation HFA aerosol inhaler 2 puff INHALATION QID PRN (Reason: Shortness Of Breath) citalopram 40 mg tablet 40 mg PO QAM trazodone 100 mg tablet 100 mg PO BEDTIME pantoprazole 40 mg tablet,delayed release (DR/EC) 40 mg PO QAM cyanocobalamin (vitamin B-12) 1,000 mcg/mL solution 1,000 mcg IM Q30D ergocalciferol (vitamin D2) 1,250 mcg (50,000 unit) capsule 1,250 mcg PO Q7D Rx Instructions: on Referrals: Gina Jacob MD [Primary Care Provider] - Coding Level of Care Code ED Software Firmware Engineer for Shauna Mejía
[2022-09-14] MEDS: ondansetron 2 mg/ML SDV 2 mL 4 MG IVP (11:47)
[2022-09-14] MEDS: morphine 4 mg/mL SDV 1 mL IVP ×4 (11:47→22:02)
[2022-09-14] MEDS: sodium chloride 0.9% 1,000 ML 999 ML IV (11:47)
[2022-09-14 11:57] LABS: Basophils % 0.1 %; Hematocrit 27.8 % (37.0-47.0); Hemoglobin 8.9 g/dL (11.5-15.3); Lymphocytes % 9.5 %; Mean Corpuscular Hemoglobin 31.9 pg (28.0-34.0); Mean Corpuscular Volume 99.6 fl (81-99); Mean Platelet Volume 10.8 fL (7.4-10.4); Monocytes # 0.6 10^3/uL (0.2-0.9); Monocytes % 6.1 %; Neutrophils # 8.53 10^3/uL (1.8-7.7); Neutrophils % 83.9 %; Nucleated Red Blood Cells % 0 %; Platelet Count 333 10^3/cmm (130-400); Red Blood Count 2.79 10^6/uL (4.1-5.3); Red Cell Distribution Width 16.1 % (12.1-15.1); White Blood Count 10.2 10^3/uL (4.0-10.0)
[2022-09-14 12:15] LABS: Alanine Aminotransferase 29 U/L (0-33); Albumin Level 2.5 g/dL (3.5-5.2); Alkaline Phosphatase 394 U/L (35-105); Anion Gap 14.3 (5-19); Aspartate Amino Transferase 102 U/L (0-32); Blood Urea Nitrogen 12 mg/dL (8-23); Calcium 8.4 mg/dL (8.5-10.5); Carbon Dioxide 27 mmol/L (22-29); Chloride 101 mmol/L (98-107); Globulin 2.4 g/dL (1.3-4.6); Glomerular Filtration Rate 83.5 mL/min (90-130); Glucose 80 mg/dL (65-115); Lipase 203 U/L (13-60); Osmolality Calculated 287 mOsm/kg (285-295); Potassium 3.3 mmol/L (3.5-5.1); Sodium 139 mmol/L (136-145); Total Bilirubin 0.9 mg/dL (0.15-1.2); Total Protein 4.9 g/dL (6.6-8.7)
[2022-09-14] MEDS: iohexol 350 mg/mL 500 mL Btl (per mL) IV (12:17)
--- NOTE | 2022-09-14 13:02 | PC.PHAR ---
pt states she takes care of her own medications-pt states she hasnt started using her eye drops that were filled 09/13/22-pt states she hasnt taken any medications today-[facility] states the treatment plan they have for the pt is keytruda,carboplation and pemetrexed but states the pt hasnt received any of the treatment plan -
[2022-09-14 13:19] LABS: Add Urine Microscopic? NO; Charge for UA Resulting for Rev
[2022-09-14 13:21] LABS: Bilirubin Urine Neg (Negative); Blood Urine Neg (Negative); Glucose Urine UA Norm (Normal); Ketones Urine Negative (Negative); Leukocyte Esterase Urine Negative (Negative); Nitrate Urine Negative (Negative); Protein Urine Neg (Negative); Urine Appearance Clear (CLEAR); Urine Color Light yellow (Yellow); Urobilinogen Urine Norm (Negative); pH Urine 7 (5-7)
--- NOTE | 2022-09-14 13:53 | P.HP_ITS ---
Providers/Chief Complaint Admitting Physician: Mike Joshi Primary Care Provider: Gina Jacob MD Chief Complaint: abd pain, sent from oncology History of Present Illness 67-year-old lady with metastatic lung cancer was directed to the ER from oncology office due to nausea, vomiting, epigastric pain. In ER she is afebrile, borderline leukocytosis, potassium 3.3, sodium normal, normal renal function, T. bili normal, AST 102, ALT normal, alk phos 394. Lipase 203. Unremarkable urinalysis. Contrast CT abdomen pelvis 1. Markedly progressed metastatic disease involving the liver with innumerable metastasis and marked hepatomegaly. 2. Small amount of perihepatic ascites. 3. Progressed bilateral adrenal metastasis largest in the LEFT measuring 4.6 x 3.9 cm described above. 4. Small amount of free fluid in the pelvis with slightly dilated and enhancing small bowel loop which may be due to infectious or inflammatory enteritis. 5. Prior RIGHT hemicolectomy. She received a bolus of fluid, Zofran, morphine. Oncology was contacted with patient condition and results, requesting hospitalization here for further optimization of symptom control. Review of Systems Const: Denies: fever(s), chills, body aches or malaise Eyes: Denies: change in vision, eye discomfort or eye redness ENMT: Denies: throat pain, oral sores or ear or mastoid pain Card: Denies: chest pain, edema, pre-syncope or dyspnea on exertion Resp: Denies: dyspnea, productive cough, change in phlegm color or hemoptysis GI: Reports: abdominal pain, nausea and vomiting; Denies: diarrhea, constipation, hematochezia or melena : Denies: flank pain, urinary frequency or hematuria Musc: Denies: back pain, joint swelling or joint redness Skin/Breast: Denies: rash or new lesions Neuro: Denies: headache(s), numbness in extremities, weakness in extremities, dizziness, confusion or seizure-like activity Endo: Denies: polyuria or polydipsia Jb/Lymph: Denies: easy bleeding or tender lymph nodes All/Imm: Denies: urticaria or tongue swelling Medications/Allergies Home Medications Medication Instructions Recorded Confirmed Last Taken Type apixaban 5 mg tablet (Eliquis) 5 mg PO BID #60 tabs 06/04/22 09/14/22 09/13/22 Rx budesonide-formoterol HFA 160 2 puff inhalation BID #10.2 grams 06/04/22 09/14/22 07/20/22 Rx mcg-4.5 mcg/actuation aerosol inhaler (Symbicort) tizanidine 4 mg tablet 4 mg PO Q8H PRN Muscle Spasm #90 06/22/22 09/14/22 07/26/22 Rx tabs diphenhydramine HCl 25 mg capsule 25 mg PO BEDTIME 08/20/22 09/14/22 Unknown History (Benadryl) tramadol 50 mg tablet 50 mg PO Q6H PRN pain 30 days #120 09/02/22 09/14/22 Unknown Rx tabs albuterol sulfate 90 mcg/actuation 2 puff inhalation QID PRN 09/14/22 09/14/22 Unknown History aerosol inhaler Shortness Of Breath ciprofloxacin HCl 0.3 % eye drops See Rx Instructions .Route .COMPLEX 09/14/22 09/14/22 Unknown History citalopram 40 mg tablet 40 mg PO QAM 09/14/22 09/14/22 Unknown History cyanocobalamin (vitamin B-12) 1,000 mcg IM Q30D 09/14/22 09/14/22 2 Weeks Ago H istory 1,000 mcg/mL injection solution ~08/31/22 ergocalciferol (vitamin D2) 1,250 1,250 mcg PO Q7D 09/14/22 09/14/22 Unknown History mcg (50,000 unit) capsule ketorolac 0.5 % eye drops See Rx Instructions .Route .COMPLEX 09/14/22 09/14/22 Unknown History pantoprazole 40 mg tablet,delayed 40 mg PO QAM 09/14/22 09/14/22 Unknown History release prednisolone acetate 1 % eye See Rx Instructions .Route .COMPLEX 09/14/22 09/14/22 Unknown History drops,suspension trazodone 100 mg tablet 100 mg PO BEDTIME 09/14/22 09/14/22 Unknown History Allergies Allergy/AdvReac Type Severity Reaction Status Date / Time aspirin Allergy Unknown Unknown Verified 09/14/22 12:55 naproxen [From Aleve] Allergy Unknown unknown Verified 09/14/22 12:55 Penicillins Allergy Unknown Unknown Verified 09/14/22 12:55 Sulfa (Sulfonamide Allergy Unknown Unknown Verified 09/14/22 12:55 Antibiotics) PFSH Acute PFSH: Medical History (Updated 09/14/22 @ 13:56 by Mike Joshi MD) Ankylosing spondylitis Chronic GERD Chronic kidney disease, stage 1 Colon cancer Colon cancer Colon polyp COPD (chronic obstructive pulmonary disease) Depression DVT (deep venous thrombosis) Dyslipidemia History of colon cancer Rheumatoid arthritis Vitamin B12 deficiency Vitamin D deficiency Surgical History (Updated 09/14/22 @ 13:56 by Mike Joshi MD) History of colon resection History of liver biopsy 07/27/2022 Dr. Esqueda [facility] S/P breast biopsy S/P hysterectomy Family History Father Diabetes Mother Cancer Grandmother Heart disease CAD (coronary artery disease) Brother Hyperlipidemia Hypertension Denies family history of Clotting disorder Dementia Psychiatric illness Chronic kidney disease (CKD) Suicide Anesthesia complication Bleeding disorder Lung disease Stroke Social History Smoking and tobacco status: former smoker (smoked 1.5 PPD x 40 yrs) Quit status (tobacco): has quit using tobacco Year quit tobacco: 2018 Second hand smoke exposure: Yes Alcohol intake: never Lives independently: Yes Household members: family Marital status: / Current occupational status: retired Current gender identity: Female Special jones needs: No Agree to transfusion: Yes Female Reproductive History: Spontaneous abortions: No Vitals/I&O/Wt Last Vital Signs Temp 98.1 F 09/14/22 10:53 Pulse 93 09/14/22 13:06 Resp 14 09/14/22 13:06 BP 135/72 09/14/22 13:06 Pulse Ox 99 09/14/22 13:06 O2 Del Method Room Air 09/14/22 13:06 09/13/22 09/14/22 09/14/22 22:59 06:59 14:59 Intake Total 1000 / 1000 Balance 1000 / 1000 Weight last 48 hrs Weight 43.545 kg Physical Exam Narrative: Daughters at bedside Const: COMMON NORMALS: patient oriented x3 and alert GENERAL APPEARANCE: cooperative ORIENTATION/CONSCIOUSNESS: Yes awake HENMT: COMMON NORMALS: oropharynx normal Neck/C-Spine: COMMON NORMALS: no JVD Resp: COMMON NORMALS: normal respiratory effort and clear to auscultation bilaterally AUSCULTATION: clear to auscultation bilaterally Cardio: COMMON NORMALS: no JVD, regular rhythm, S1 normal heart sound present, S2 normal heart sound present and No murmurs present (Cardio) RHYTHM: regular rhythm HEART SOUNDS: S1 normal heart sound present and S2 normal heart sound present GI: COMMON NORMALS: Normal to inspection, nondistended, normoactive bowel sounds present and Soft to palpation PALPATION: Yes Soft to palpation OTHER: Tender epigastrium Extremity: COMMON NORMALS: no joint enlargement and no pedal edema Neuro: COMMON NORMALS: patient oriented x3 and moves all extremities SENSORIUM/ORIENTATION: Yes alert Skin: COMMON NORMALS: no rashes or lesions noted GENERAL SKIN EXAM: no rashes or lesions noted Data 09/14/22 11:45 09/14/22 11:45 A&P Assessment and plan (1) Nausea and vomiting: Had some sips of water before her oncology appointment but otherwise has not been able to eat or drink, did not have breakfast or dinner yesterday either. With epigastric pain, discussed with them concerning finding of lipase elevation up to 203, recommend on review of CT scan pancreas appears normal. Likely may be related secondary to her vomiting. However, we will follow-up lipase in the morning. Symptomatic control of nausea and vomiting currently with IV Protonix, Zofran. Morphine as needed for pain. Recheck electrolytes is noted to have hypokalemia 3.3. Sodium 139. Chloride 101. Bicarb 27. Anion gap 14.3. BUN 12, creatinine 1.7. At risk of severe electrolyte abnormalities with lack of oral intake, vomiting. Reassess chemistries. Check magnesium. We will give potassium with IV fluids. Gentle IV hydration until resumes oral intake. Trial of clear liquids, but we discussed with her being cautious, taking only small amounts for now until tolerating oral intake better. She verbalized understanding. Denies NSAID use. Denies EtOH. Former smoker. Consider endoscopic assessment with follow-up. Discussed with ER physician. ER documentation reviewed. Oncology documentation reviewed. (2) Epigastric pain: As above Plan History of DVT: Eliquis Metastatic lung cancer GERD CKD Colon cancer Depression HLD RA Attestations Medical Necessity Statement*: Place in observation for additional optimization of control symptoms with nausea and vomiting and lady with widely metastatic lung cancer, and unable to tolerate oral intake or oral medications, electrolyte imbalance. Diagnoses Nausea and vomiting R11.2 Epigastric pain R10.13
[2022-09-14 16:09] LABS: Magnesium 1.9 mg/dL (1.7-2.3)
[2022-09-14] MEDS: pantoprazole 40 mg SDV IVP (17:23)
[2022-09-14] MEDS: apixaban 5 mg Tablet PO (17:23)
[2022-09-14] MEDS: D5-NS 0.45% + KCL 20 mEq 20 MEQ/1,000 ML BAG 75 MEQ IV (17:31)
[2022-09-14] MEDS: budesonide 0.5 mg/2 mL Neb INHALATION (19:44)
[2022-09-14] MEDS: albuterol 2.5 mg/3 mL Neb INHALATION (19:44)
[2022-09-14] MEDS: trazodone 100 mg Tablet PO (21:00)
[2022-09-14] MEDS: diphenhydrAMINE 25 mg Capsule PO (21:00)
[2022-09-14] MEDS: TRAMadol 50 mg Tablet PO (21:09)
[2022-09-15] VITALS (18 sets, daily range): BP systolic 96–130; BP diastolic 59–80; PULSE 78–97; RESP 16–20; TEMP 36.7–36.9; O2SAT 90–94
[2022-09-15] MEDS: pantoprazole 40 mg SDV IVP ×2 (03:29→15:01)
[2022-09-15] MEDS: ondansetron 2 mg/ML SDV 2 mL 4 MG IVP ×4 (03:30→23:48)
[2022-09-15] MEDS: metoclopramide 5 mg/mL SDV 2 mL 10 MG IVP ×3 (04:25→20:59)
[2022-09-15 04:33] LABS: Basophils % 0.1 %; Eosinophils % 0.1 %; Hematocrit 30.4 % (37.0-47.0); Hemoglobin 9.4 g/dL (11.5-15.3); Lymphocytes # 1.1 10^3/uL (0.8-4.8); Lymphocytes % 9.3 %; Mean Corpuscular HGB Conc 30.9 g/dL (30.0-36.0); Mean Corpuscular Hemoglobin 31.8 pg (28.0-34.0); Mean Corpuscular Volume 102.7 fl (81-99); Mean Platelet Volume 10.7 fL (7.4-10.4); Monocytes # 0.7 10^3/uL (0.2-0.9); Monocytes % 6.2 %; Neutrophils % 83.9 %; Nucleated Red Blood Cells % 0 %; Platelet Count 364 10^3/cmm (130-400); Red Blood Count 2.96 10^6/uL (4.1-5.3); Red Cell Distribution Width 16.8 % (12.1-15.1); White Blood Count 11.6 10^3/uL (4.0-10.0)
[2022-09-15 04:51] LABS: Alanine Aminotransferase 29 U/L (0-33); Albumin Level 2.4 g/dL (3.5-5.2); Alkaline Phosphatase 376 U/L (35-105); Anion Gap 12.4 (5-19); Aspartate Amino Transferase 75 U/L (0-32); Blood Urea Nitrogen 9 mg/dL (8-23); Calcium 8.5 mg/dL (8.5-10.5); Carbon Dioxide 26 mmol/L (22-29); Chloride 106 mmol/L (98-107); Globulin 2.2 g/dL (1.3-4.6); Glomerular Filtration Rate 71.5 mL/min (90-130); Glucose 107 mg/dL (65-115); Osmolality Calculated 291 mOsm/kg (285-295); Potassium 3.4 mmol/L (3.5-5.1); Sodium 141 mmol/L (136-145); Thyroid Stimulating Hormone 6.31 uIU/mL (0.27-4.20); Total Bilirubin 0.7 mg/dL (0.15-1.2); Total Protein 4.6 g/dL (6.6-8.7)
[2022-09-15 05:04] LABS: Lipase 750 U/L (13-60)
[2022-09-15] MEDS: morphine 4 mg/mL SDV 1 mL IVP (05:18)
[2022-09-15] MEDS: citalopram 20 mg Tablet 40 MG PO (05:20)
[2022-09-15] MEDS: D5-NS 0.45% + KCL 20 mEq 20 MEQ/1,000 ML BAG 75 MEQ IV ×2 (05:29→19:16)
--- NOTE | 2022-09-15 06:16 | PC.NURSE ---
Patient has had hypotension and severe pain this am, Dr. Joseph ordered to decrease morphine to 2mg Q4 PRN.
[2022-09-15] MEDS: TRAMadol 50 mg Tablet PO (07:25)
[2022-09-15] MEDS: budesonide 0.5 mg/2 mL Neb INHALATION ×2 (07:37→20:34)
[2022-09-15] MEDS: albuterol 2.5 mg/3 mL Neb INHALATION ×4 (07:37→20:34)
--- NOTE | 2022-09-15 08:26 | PC.NURSE ---
Pt family states patient hasnt urinated all night so I bladder scanned her the most shown was 375. Pt did say she felt like she could urinate to I placed a hat in BR and family walked her to BR.
[2022-09-15] MEDS: apixaban 5 mg Tablet PO ×2 (08:51→17:36)
[2022-09-15] MEDS: lidocaine 1% 5 ML in potassium chloride premix 100 ML 52.5 ML IV (09:03)
[2022-09-15] MEDS: morphine 4 mg/mL SDV 1 mL 2 MG IVP (09:05)
--- NOTE | 2022-09-15 12:50 | MR_ITS ---
WS: [id number] MRCP (MAGNETIC RESONANCE CHOLANGIOPANCREATOGRAPHY) HISTORY: rising lipase, epigastric pain, cancer mets COMPARISON: CT 09/14/2022, PET/CT 06/19/2022 TECHNIQUE: Multiple sequences are performed to evaluate the intra and extrahepatic ducts. Marked enlargement of the liver extending over a length of 22 cm with innumerable metastatic lesions throughout the liver. No hepatic metastasis. Liver capsule is distended. Gallbladder has been displac ed medially and inferiorly. No fluid or edema surrounding the gallbladder. There is no bile duct dila tation. Common bile duct is being mildly compressed and displaced by the enlarged liver. There are no filling defects identified within the common bile duct but this examination is significantly limited by breathing motion artifact. On the recent CT there is no duct dilatation. Pancreas is negative. No pancreatic duct dilatation or pancreatic head mass. Patient has known bilateral adrenal metastasis. Largest metastatic no renal obstruction. Small amount of ascites along the RIGHT abdomen and paracolic gutter. No pleural effusion. Involvement on the LEF T of 5.0 x 3.6 cm. MR/MR MRCP [id number] IMPRESSION: 1. Massive hepatomegaly with known diffuse metastatic disease. 2. Gallbladder is being displaced medially and inferiorly by the enlarged live r. 3. No intrahepatic or extrahepatic duct dilatation. 4. No pancreatic duct dilatation. 5. Known bilateral adrenal metastasis.
[2022-09-15 13:04] LABS: Glucose Point of Care 132 mg/dL (70-110)
[2022-09-15] MEDS: fentaNYL 12 mcg Patch 1 PATCH TRANSDERMA (14:07)
[2022-09-15] MEDS: diphenhydrAMINE 50 mg/mL SDV 1mL 25 MG IVP ×2 (15:01→20:59)
[2022-09-15] MEDS: polyethylene glycol 3350 Pkt 17 gm PO (17:36)
--- NOTE | 2022-09-15 19:19 | P.PN_ITS ---
Subjective Subjective: Overnight she had a difficult night with pain, but also soft blood pressure, did not receive 4 mg morphine, dose was decreased to 10 mg, after receiving that it did seem to have some improvement. Last night additional episode of vomiting. Vitals/I&O/Wt Last Vital Signs Temp 98.1 F 09/15/22 15:05 Pulse 95 09/15/22 15:20 Resp 16 09/15/22 15:20 BP 130/80 09/15/22 15:05 Pulse Ox 92 09/15/22 15:20 O2 Del Method Room Air 09/15/22 15:20 09/15/22 09/15/22 09/15/22 06:59 14:59 22:59 Intake Total 1017.5 / 2857.5 105 / 105 1000 / 1105 Output Total 100 / 100 Balance 1017.5 / 2857.5 5 / 5 1000 / 1005 Weight last 48 hrs Weight 43.545 kg Physical Exam Narrative: Daughters at bedside Const: COMMON NORMALS: patient oriented x3 and alert GENERAL APPEARANCE: cooperative ORIENTATION/CONSCIOUSNESS: Yes awake HENMT: COMMON NORMALS: oropharynx normal Neck/C-Spine: COMMON NORMALS: no JVD Resp: COMMON NORMALS: normal respiratory effort and clear to auscultation bilaterally AUSCULTATION: clear to auscultation bilaterally Cardio: COMMON NORMALS: no JVD, regular rhythm, S1 normal heart sound present, S2 normal heart sound present and No murmurs present (Cardio) RHYTHM: regular rhythm HEART SOUNDS: S1 normal heart sound present and S2 normal heart sound present GI: COMMON NORMALS: Normal to inspection, nondistended, normoactive bowel sounds present and Soft to palpation PALPATION: Yes Soft to palpation OTHER: Tender epigastrium Extremity: COMMON NORMALS: no joint enlargement and no pedal edema Neuro: COMMON NORMALS: patient oriented x3 and moves all extremities SENSORIUM/ORIENTATION: Yes alert Skin: COMMON NORMALS: no rashes or lesions noted GENERAL SKIN EXAM: no rashes or lesions noted Data 09/15/22 03:49 09/15/22 03:49 A&P Assessment and plan (1) Nausea and vomiting: Additional vomiting episode last night. So far no further vomiting. She was trying to have some Ensure today. Potassium noted 3.4. At risk of severe electrolyte deficiencies with vomiting, lack of oral intake. Receiving IV fluid hydration, with potassium, given additional potassium supplementation. Follow-up electrolytes. Follow-up magnesium. At risk of severe electrolyte abnormalities with lack of oral intake, vomiting. Reassess chemistries. Check magnesium. We will give potassium with IV fluids. Gentle IV hydration until resumes oral intake. Trial of clear liquids, but we discussed with her being cautious, taking only small amounts for now until tolerating oral intake better. She verbalized understanding. Denies NSAID use. Denies EtOH. Former smoker. Consider endoscopic assessment with follow-up. Disposition planning discussed with case management. (2) Epigastric pain: History obtained from her daughter as she finally fell asleep. Overnight difficulty with pain control due to hypotension. Still requiring IV morphine. Morphine dose was decreased to 2 mg, did seem to tolerate that little bit better, although daughters report not adequate pain control. Discussed we likely may not be able to alleviate pain entirely, we will try to additionally give some pain relief with fentanyl patch which hopefully may not drop her blood pressures rapidly as breakthrough meds. Additionally daughter states tramadol has not been working for her and has just been decreasing her blood pressures. Discontinue. Discussed trial of some low-dose oral Dilaudid, although cautioned regarding possible same adverse effects. They would like to try. Additionally discussed lipase elevation up to 750 today with concern for acute pancreatitis. Discussed consideration of additional assessment by MRCP and she and daughters would like to proceed. MRCP obtained. Plan Possible urine retention episode: Noted to have 350 mL on bladder scan this morning. Possible urine retention. However voided, surgically with RML and bladder. Support recheck bladder scan obtained. Monitor for retention as discussed with them with pain, constipation and/or pain medications. Constipation: Add MiraLAX, Dulcolax) as needed. History of DVT: Eliquis Metastatic lung cancer GERD CKD Colon cancer Depression HLD RA Attestations Medical Necessity Statement*: Continue hospitalization for assessment management of recurrent nausea, vomiting, optimization of control of severe pain with widely metastatic lung cancer including heavy liver metastatic disease, assessment for pancreatitis, possible urine retention. Diagnoses Nausea and vomiting R11.2 Epigastric pain R10.13
[2022-09-15] MEDS: diphenhydrAMINE 25 mg Capsule PO (21:53)
[2022-09-15] MEDS: trazodone 100 mg Tablet PO (21:53)
--- NOTE | 2022-09-15 22:45 | PC.NURSE ---
family requesting PRN meds for pain and nausea be given around the clock, nurse explained that if PRN meds are given around the clock even if there is no current s/s for need, it would be difficult to assess if pt condition is improving or not. both family members and verbalized that pain is controlled when receiving pain meds around the clock same with nausea but when not taking around the clock, pain comes on severely and it takes nearly all day to get pain back to manageable state and same goes with nausea meds. pt was given zofran and approx 30 minutes later pt had emesis
[2022-09-16] VITALS (9 sets, daily range): BP systolic 108–121; BP diastolic 63–72; PULSE 90–94; RESP 14–18; TEMP 36.6–36.8; O2SAT 90–94
[2022-09-16] MEDS: pantoprazole 40 mg SDV IVP (03:08)
[2022-09-16] MEDS: metoclopramide 5 mg/mL SDV 2 mL 10 MG IVP ×2 (03:08→09:21)
[2022-09-16] MEDS: diphenhydrAMINE 50 mg/mL SDV 1mL 25 MG IVP (03:08)
[2022-09-16 04:13] LABS: Basophils % 0.1 %; Eosinophils % 0.1 %; Hemoglobin 9.4 g/dL (11.5-15.3); Lymphocytes # 1.1 10^3/uL (0.8-4.8); Lymphocytes % 6.9 %; Mean Corpuscular HGB Conc 30.3 g/dL (30.0-36.0); Mean Corpuscular Volume 105.4 fl (81-99); Mean Platelet Volume 10.4 fL (7.4-10.4); Monocytes # 1.1 10^3/uL (0.2-0.9); Monocytes % 6.8 %; Neutrophils # 13.67 10^3/uL (1.8-7.7); Neutrophils % 85.8 %; Nucleated Red Blood Cells % 0 %; Platelet Count 318 10^3/cmm (130-400); Red Blood Count 2.94 10^6/uL (4.1-5.3); Red Cell Distribution Width 16.9 % (12.1-15.1); White Blood Count 15.9 10^3/uL (4.0-10.0)
[2022-09-16 04:37] LABS: Alanine Aminotransferase 23 U/L (0-33); Albumin Level 2.5 g/dL (3.5-5.2); Alkaline Phosphatase 298 U/L (35-105); Anion Gap 14.3 (5-19); Aspartate Amino Transferase 52 U/L (0-32); Blood Urea Nitrogen 15 mg/dL (8-23); Carbon Dioxide 21 mmol/L (22-29); Chloride 107 mmol/L (98-107); Globulin 1.9 g/dL (1.3-4.6); Glomerular Filtration Rate 49.5 mL/min (90-130); Glucose 96 mg/dL (65-115); Osmolality Calculated 287 mOsm/kg (285-295); Potassium 4.3 mmol/L (3.5-5.1); Sodium 138 mmol/L (136-145); Total Bilirubin 0.5 mg/dL (0.15-1.2); Total Protein 4.4 g/dL (6.6-8.7)
[2022-09-16 04:44] LABS: Lipase 436 U/L (13-60)
[2022-09-16] MEDS: ondansetron 2 mg/ML SDV 2 mL 4 MG IVP (05:55)
--- NOTE | 2022-09-16 06:00 | PC.NURSE ---
no urine output this shift, pt denies urge to void, attempted to void without success, bladder scan showed 338 ml, straight cath and 300 ml out
[2022-09-16] MEDS: citalopram 20 mg Tablet 40 MG PO (06:34)
[2022-09-16] MEDS: albuterol 2.5 mg/3 mL Neb INHALATION ×2 (08:01→11:02)
[2022-09-16] MEDS: budesonide 0.5 mg/2 mL Neb INHALATION (08:01)
[2022-09-16] MEDS: D5-NS 0.45% + KCL 20 mEq 20 MEQ/1,000 ML BAG 75 MEQ IV (09:15)
[2022-09-16] MEDS: polyethylene glycol 3350 Pkt 17 gm PO (09:17)
[2022-09-16] MEDS: apixaban 5 mg Tablet PO (09:17)
--- NOTE | 2022-09-16 12:08 | PM.DCS ---
Discharge Providers Date of Admission: 09/14/22 13:18 Date of Discharge: September 16, 2022 Attending Provider at Admission: Mike Joshi Attending Provider at Discharge: Mike Joshi Primary Care Provider: Gina Jacob MD Diagnoses at Discharge Discharge Diagnosis (1) Nausea and vomiting: Status: Acute (2) Epigastric pain: Status: Acute Reason for Visit Reason for Visit: abd pain, sent from oncology Brief History: 67-year-old lady with metastatic lung cancer was directed to the ER from oncology office due to nausea, vomiting, epigastric pain.? In ER she is afebrile, borderline leukocytosis, potassium 3.3, sodium normal, normal renal function, T. bili normal, AST 102, ALT normal, alk phos 394.? Lipase 203.? Unremarkable urinalysis.? Contrast CT abdomen pelvis 1.? Markedly progressed metastatic disease involving the liver with innumerable metastasis and marked hepatomegaly. 2.? Small amount of perihepatic ascites. 3.? Progressed bilateral adrenal metastasis largest in the LEFT measuring 4.6 x 3.9 cm described above. 4.? Small amount of free fluid in the pelvis with slightly dilated and enhancing small bowel loop which may be due to infectious or inflammatory enteritis. 5.? Prior RIGHT hemicolectomy. She received a bolus of fluid, Zofran, morphine.? Oncology was contacted with patient condition and results, requesting hospitalization here for further optimization of symptom control. Hospital Course Hospital Course She was started on gentle IV hydration, nausea treated with Zofran. For pain control was started on IV morphine in addition to home tramadol being resumed. Was given potassium replacement. Lipase level was followed up. Pain control was limited by low blood pressure, and morphine dose initially had to be decreased down to 2 mg. As per discussion tramadol has not been effective with pain control and was suspected to contribute to low blood pressures. In lieu of tramadol she was started on 2 mg oral Dilaudid, and 12 mcg fentanyl patch was added. She underwent assessment by an MRCP due to rise in lipase up to 750, but was not found to have any pancreatic duct dilation or intrahepatic hepatic biliary duct dilation. Instantly noted known massive hepatomegaly with known diffuse metastatic disease. Today she is doing much better. She is no longer having nausea or vomiting. Lipase is decreased. Tolerating liquid diet. Pain is much better controlled. Maintaining blood pressures with current pain regimen. She feels ready to return home. Please follow chemistries, reassess potassium, replace additional potassium if needed. Reassess pain regimen, continue reassessment for need for opiate therapy and reassessment of her risks as discussed also with her daughters. She is provided with intranasal naloxone. During hospitalization also noted to have urine retention, required straight catheterization, still having issues with retention. Possibly related to pain, should hopefully improve with improvement in pain control. For now Horton catheter is placed and she will discharge home with a leg bag. Please reassess with voiding trial. As discussed with them also strive to prevent constipation. She is started on bowel regimen. Resume follow-up with oncology for arrangements for treatment for metastatic cancer. Physical Exam Narrative: Daughters at bedside Const: COMMON NORMALS: patient oriented x3 and alert GENERAL APPEARANCE: cooperative ORIENTATION/CONSCIOUSNESS: Yes awake HENMT: COMMON NORMALS: oropharynx normal Neck/C-Spine: COMMON NORMALS: no JVD Resp: COMMON NORMALS: normal respiratory effort and clear to auscultation bilaterally AUSCULTATION: clear to auscultation bilaterally Cardio: COMMON NORMALS: no JVD, regular rhythm, S1 normal heart sound present, S2 normal heart sound present and No murmurs present (Cardio) RHYTHM: regular rhythm HEART SOUNDS: S1 normal heart sound present and S2 normal heart sound present GI: COMMON NORMALS: Normal to inspection, nondistended, normoactive bowel sounds present and Soft to palpation PALPATION: Yes Soft to palpation OTHER: Tender epigastrium Extremity: COMMON NORMALS: no joint enlargement and no pedal edema Neuro: COMMON NORMALS: patient oriented x3 and moves all extremities SENSORIUM/ORIENTATION: Yes alert Skin: COMMON NORMALS: no rashes or lesions noted GENERAL SKIN EXAM: no rashes or lesions noted Discharge Data Studies Completed and Pending Completed Studies During Hospitalization Category Date Time Status CT abdomen pelvis w con* [id number] Stat Cat Scan 09/14/22 11:12 Completed MR MRCP [id number] Stat MRI 09/15/22 12:50 Completed Pending at discharge Category Date Time Status Complete Blood Count w/Auto AM LABS Lab 09/17/22 04:00 Ordered Comprehensive Metabolic Panel AM LABS Lab 09/17/22 04:00 Ordered Radiology Impressions Abdomen/Pelvis CT 09/14/22 11:12 IMPRESSION: 1. Markedly progressed metastatic disease involving the liver with innumerable metastasis and marked hepatomegaly. 2. Small amount of perihepatic ascites. 3. Progressed bilateral adrenal metastasis largest in the LEFT measuring 4.6 x 3.9 cm described above. 4. Small amount of free fluid in the pelvis with slightly dilated and enhancing small bowel loop which may be due to infectious or inflammatory enteritis. 5. Prior RIGHT hemicolectomy. Cholangiopancreatography MRI 09/15/22 12:50 IMPRESSION: 1. Massive hepatomegaly with known diffuse metastatic disease. 2. Gallbladder is being displaced medially and inferiorly by the enlarged liver. 3. No intrahepatic or extrahepatic duct dilatation. 4. No pancreatic duct dilatation. 5. Known bilateral adrenal metastasis. Laboratory Results WBC 15.9 10^3/uL (4.0-10.0) H 09/16/22 03:56 RBC 2.94 10^6/uL (4.1-5.3) L 09/16/22 03:56 Hgb 9.4 g/dL (11.5-15.3) L 09/16/22 03:56 Hct 31.0 % (37.0-47.0) L 09/16/22 03:56 MCV 105.4 fl (81-99) H 09/16/22 03:56 MCH 32.0 pg (28.0-34.0) 09/16/22 03:56 MCHC 30.3 g/dL (30.0-36.0) 09/16/22 03:56 RDW 16.9 % (12.1-15.1) H 09/16/22 03:56 Plt Count 318 10^3/cmm (130-400) 09/16/22 03:56 MPV 10.4 fL (7.4-10.4) 09/16/22 03:56 Neut % (Auto) 85.8 % 09/16/22 03:56 Lymph % (Auto) 6.9 % 09/16/22 03:56 [place] % (Auto) 6.8 % 09/16/22 03:56 Eos % (Auto) 0.1 % 09/16/22 03:56 Baso % (Auto) 0.1 % 09/16/22 03:56 Neut # (Auto) 13.67 10^3/uL (1.8-7.7) H 09/16/22 03:56 Lymph # (Auto) 1.1 10^3/uL (0.8-4.8) 09/16/22 03:56 [place] # (Auto) 1.1 10^3/uL (0.2-0.9) H 09/16/22 03:56 Eos # (Auto) 0.0 10^3/uL (0.0-0.8) 09/16/22 03:56 Baso # (Auto) 0.0 10^3/uL (0.0-0.1) 09/16/22 03:56 Nucleated RBC % (auto) 0 % 09/16/22 03:56 Nucleated RBCs # 0.0 /100WBC 09/16/22 03:56 Sodium 138 mmol/L (136-145) 09/16/22 03:56 Potassium 4.3 mmol/L (3.5-5.1) 09/16/22 03:56 Chloride 107 mmol/L (98-107) 09/16/22 03:56 Carbon Dioxide 21 mmol/L (22-29) L 09/16/22 03:56 Anion Gap 14.3 (5-19) 09/16/22 03:56 BUN 15 mg/dL (8-23) 09/16/22 03:56 Creatinine 1.1 mg/dL (0.5-0.9) H 09/16/22 03:56 GFR Calculation 49.5 mL/min (90-130) L 09/16/22 03:56 Glucose 96 mg/dL (65-115) 09/16/22 03:56 POC Glucose 132 mg/dL (70-110) H 09/15/22 13:01 Calculated Osmolality 287 mOsm/kg (285-295) 09/16/22 03:56 Calcium 8.0 mg/dL (8.5-10.5) L 09/16/22 03:56 Magnesium 2.0 mg/dL (1.7-2.3) 09/16/22 03:56 Total Bilirubin 0.5 mg/dL (0.15-1.2) 09/16/22 03:56 AST 52 U/L (0-32) H 09/16/22 03:56 ALT 23 U/L (0-33) 09/16/22 03:56 Alkaline Phosphatase 298 U/L (35-105) H 09/16/22 03:56 Total Protein 4.4 g/dL (6.6-8.7) L 09/16/22 03:56 Albumin 2.5 g/dL (3.5-5.2) L 09/16/22 03:56 Globulin 1.9 g/dL (1.3-4.6) 09/16/22 03:56 Lipase 436 U/L (13-60) H 09/16/22 03:56 TSH 6.31 uIU/mL (0.27-4.20) H 09/15/22 03:49 Urine Color Light yellow (Yellow) 09/14/22 12:59 Urine Appearance Clear (CLEAR) 09/14/22 12:59 Urine pH 7 (5-7) 09/14/22 12:59 Ur Specific [place] 1.010 (1.005-1.030) 09/14/22 12:59 Urine Protein Neg (Negative) 09/14/22 12:59 Urine Glucose (UA) Norm (Normal) 09/14/22 12:59 Urine Ketones Negative (Negative) 09/14/22 12:59 Urine Blood Neg (Negative) 09/14/22 12:59 Urine Nitrate Negative (Negative) 09/14/22 12:59 Urine Bilirubin Neg (Negative) 09/14/22 12:59 Urine Urobilinogen Norm mg/dL (Negative) 09/14/22 12:59 Ur Leukocyte Esterase Negative (Negative) 09/14/22 12:59 Vitals Last Vital Signs Temp 98.3 F 09/16/22 05:00 Pulse 90 09/16/22 11:02 Resp 16 09/16/22 11:02 BP 108/67 09/16/22 07:53 Pulse Ox 91 09/16/22 11:02 O2 Del Method Room Air 09/16/22 11:02 Discharge Plan Discharge Patient Disposition: Home Condition: Stable Prescriptions: New hydromorphone 4 mg Tablet 2 mg PO Q6H PRN (Reason: Moderate Pain) Qty: 30 0RF fentanyl 12 mcg/hr Patch 72 Hour 1 patch transdermal Q72H Qty: 5 0RF ondansetron 4 mg tablet,disintegrating 4 mg PO Q8H 14 Days Qty: 42 0RF polyethylene glycol 3350 17 gram Powder In Packet 17 g PO BID Qty: 60 0RF naloxone [Narcan] 4 mg/actuation spray,non-aerosol 4 mg intranasal Q2M PRN (Reason: opioid overdose) Qty: 2 0RF Rx Instructions: spray 1 dose into ONE nostril; alternate nostrils w each dose until help arrives Continued diphenhydramine HCl [Benadryl] 25 mg capsule 25 mg PO BEDTIME budesonide-formoterol [Symbicort] 160-4.5 mcg/actuation HFA aerosol inhaler 2 puff inhalation BID Qty: 10.2 6RF Eliquis 5 mg tablet 5 mg PO BID Qty: 60 4RF Hold Instructions: Resume on 07/28/22. tizanidine 4 mg tablet 4 mg PO Q8H PRN (Reason: Muscle Spasm) Qty: 90 2RF ketorolac 0.5 % drops See Rx Instructions .ROUTE .COMPLEX Rx Instructions: as directed prednisolone acetate 1 % drops,suspension See Rx Instructions .ROUTE .COMPLEX Rx Instructions: as directed ciprofloxacin HCl 0.3 % drops See Rx Instructions .ROUTE .COMPLEX Rx Instructions: as directed albuterol sulfate 90 mcg/actuation HFA aerosol inhaler 2 puff INHALATION QID PRN (Reason: Shortness Of Breath) citalopram 40 mg tablet 40 mg PO QAM trazodone 100 mg tablet 100 mg PO BEDTIME cyanocobalamin (vitamin B-12) 1,000 mcg/mL solution 1,000 mcg IM Q30D ergocalciferol (vitamin D2) 1,250 mcg (50,000 unit) capsule 1,250 mcg PO Q7D Rx Instructions: on Changed pantoprazole 40 mg tablet,delayed release (DR/EC) 40 mg PO BID Qty: 60 0RF Discontinued tramadol 50 mg tablet 50 mg PO Q6H PRN (Reason: pain) 30 Days Qty: 120 2RF Discharge Orders: Discharge Order (Routine); Ordered 09/16/22 Ordered By: Mike Joshi Referrals: Gina Jacob MD [Primary Care Provider] - 4-7 days Discharge Diet: GI Soft Discharge Activity: Increase activity as tolerated Patient Instructions: Fentanyl (Absorbed through the skin), Hydromorphone (By mouth), Ondansetron (By mouth), Naloxone (Into the nose), Horton Catheter Care, Potassium Content of Foods List (GEN), Acute Nausea and Vomiting (GEN), Acute Urinary Retention in Women (GEN), Urinary Leg Bag (GEN), Opioid Safety Activity Restrictions/Additional Instructions: Follow-up with your primary doctor for reassessment for control of nausea vomiting and pain. As discuss regarding opioid medication potential adverse effects, follow-up with primary doctor for reassessment. As discussed maintain precautions with opiate therapy. Monitor for any signs of respiratory depression. As discussed use naloxone if found. Please have your primary doctor and/or oncologist follow-up with blood chemistries to reassess potassium after low potassium level. Add potassium rich foods. Follow-up with your primary doctor for voiding trial DC Horton can be discontinued. If still failing voiding trial, discuss referral for follow-up with urology. Discharge Attestations Time Spent in Discharge Care*: greater than 30 min Quality Metrics Clinical Quality Measures [ No reported AMI, CVA or VTE this stay] Coding Level of Care Code 69100 Total time (in minutes) for Discharge: 60 Diagnoses Nausea and vomiting R11.2 Epigastric pain R10.13
== END 2022-09-16 17:15 | disposition home or self-care (01) ==
LOC: ER 13:18 → MEDSURG 15:53
PROVIDERS: Family Medicine; Admitting Provider Internal Medicine; Emergency Provider Emergency Medicine; PCP Family Medicine; Visit Provider Internal Medicine
DX: R11.2 Nausea with vomiting, unspecified (principal); R10.13 Epigastric pain; Z86.718 Personal history of other venous thrombosis and embolism; Z79.01 Long term (current) use of anticoagulants; C78.00 Secondary malignant neoplasm of unspecified lung; K21.9 Gastro-esophageal reflux disease without esophagitis; N18.1 Chronic kidney disease, stage 1; C18.9 Malignant neoplasm of colon, unspecified; F32.A Depression, unspecified; E78.5 Hyperlipidemia, unspecified; M06.9 Rheumatoid arthritis, unspecified; Z87.891 Personal history of nicotine dependence
CPT/HCPCS: 36415; 36416; 51702; 51798; 74177; 74181; 80053; 81003; 82962; 83690; 83735; 84443; 85025; 94640; 96361; 96365; 96366; 96375; 96376; 99214; 99285; C9113; G0378; J1200; J2270; J2405; J2765; J3480; J7030; J7613; J7626; Q9967

== ENCOUNTER 2022-09-21 09:32 | Oncology outpatient (recurring) (ONCR) | payer MEDICARE, MEDICAID, SELFPAY ==
[2022-09-14 09:10] VITALS: BP 119/72; PULSE 96; RESP 18; TEMP 36; O2SAT 98
[2022-09-14 09:32] LABS: Basophils % 0.2 %; Hematocrit 32.8 % (37.0-47.0); Hemoglobin 10.5 g/dL (11.5-15.3); Lymphocytes # 1.3 10^3/uL (0.8-4.8); Lymphocytes % 10.4 %; Mean Platelet Volume 10.5 fL (7.4-10.4); Monocytes # 0.8 10^3/uL (0.2-0.9); Monocytes % 6.4 %; Neutrophils # 10.29 10^3/uL (1.8-7.7); Neutrophils % 82.7 %; Nucleated Red Blood Cells % 0 %; Platelet Count 406 10^3/cmm (130-400); Red Blood Count 3.28 10^6/uL (4.1-5.3); Red Cell Distribution Width 16.4 % (12.1-15.1); White Blood Count 12.5 10^3/uL (4.0-10.0)
[2022-09-14 09:53] LABS: Alanine Aminotransferase 33 U/L (0-33); Alkaline Phosphatase 442 U/L (35-105); Anion Gap 15.3 (5-19); Aspartate Amino Transferase 121 U/L (0-32); Blood Urea Nitrogen 12 mg/dL (8-23); Calcium 8.6 mg/dL (8.5-10.5); Carbon Dioxide 27 mmol/L (22-29); Chloride 100 mmol/L (98-107); Globulin 2.5 g/dL (1.3-4.6); Glomerular Filtration Rate 83.5 mL/min (90-130); Glucose 92 mg/dL (65-115); Osmolality Calculated 287 mOsm/kg (285-295); Potassium 3.3 mmol/L (3.5-5.1); Sodium 139 mmol/L (136-145); Total Bilirubin 1.2 mg/dL (0.15-1.2); Total Protein 5.5 g/dL (6.6-8.7)
[2022-09-21 09:44] VITALS: BP 100/60; PULSE 92; RESP 17; TEMP 36.8; O2SAT 94
[2022-09-21 10:00] LABS: Basophils % 0.2 %; Eosinophils # 0.1 10^3/uL (0.0-0.8); Eosinophils % 0.4 %; Hematocrit 29.5 % (37.0-47.0); Hemoglobin 9.2 g/dL (11.5-15.3); Lymphocytes # 0.8 10^3/uL (0.8-4.8); Lymphocytes % 6.7 %; Mean Corpuscular HGB Conc 31.2 g/dL (30.0-36.0); Mean Corpuscular Hemoglobin 32.1 pg (28.0-34.0); Mean Corpuscular Volume 102.8 fl (81-99); Mean Platelet Volume 10.3 fL (7.4-10.4); Monocytes # 0.6 10^3/uL (0.2-0.9); Monocytes % 5.6 %; Neutrophils # 9.67 10^3/uL (1.8-7.7); Neutrophils % 86.6 %; Nucleated Red Blood Cells % 0 %; Platelet Count 315 10^3/cmm (130-400); Red Blood Count 2.87 10^6/uL (4.1-5.3); Red Cell Distribution Width 16.9 % (12.1-15.1); White Blood Count 11.2 10^3/uL (4.0-10.0)
[2022-09-21 10:29] LABS: Alanine Aminotransferase 56 U/L (0-33); Albumin Level 2.3 g/dL (3.5-5.2); Alkaline Phosphatase 427 U/L (35-105); Anion Gap 14.9 (5-19); Aspartate Amino Transferase 171 U/L (0-32); Blood Urea Nitrogen 18 mg/dL (8-23); Calcium 9.5 mg/dL (8.5-10.5); Carbon Dioxide 25 mmol/L (22-29); Chloride 101 mmol/L (98-107); Globulin 2.5 g/dL (1.3-4.6); Glomerular Filtration Rate 71.5 mL/min (90-130); Glucose 104 mg/dL (65-115); Osmolality Calculated 286 mOsm/kg (285-295); Potassium 3.9 mmol/L (3.5-5.1); Sodium 137 mmol/L (136-145); Total Protein 4.8 g/dL (6.6-8.7)
[2022-09-21] MEDS: sodium chloride 0.9% 250 ML 75 ML IV (12:36)
[2022-09-21] MEDS: OLANZapine 5 mg TABLET PO (12:36)
[2022-09-21] MEDS: palonosetron 0.25 mg/5 mL SDV IVP (12:37)
[2022-09-21] MEDS: famotidine 20 mg/2 mL INJ IVP (12:40)
[2022-09-21] MEDS: diphenhydrAMINE 50 mg/mL SDV 1mL 25 MG IVP (12:42)
[2022-09-21] MEDS: fosaprepitant 150 MG in sodium chloride 0.9% 150 ML 300 MG IV (13:20)
[2022-09-21] MEDS: pembrolizumab 200 MG in sodium chloride 0.9% 250 ML 516 MG IV (13:53)
[2022-09-21 14:50] VITALS: BP 102/65; PULSE 87; TEMP 36.2; O2SAT 95
== END 2022-09-21 23:59 | disposition home or self-care (01) ==
PROVIDERS: Nurse Practitioner Family; PCP Family Medicine; Visit Provider Internal Medicine Hematology & Oncology
DX: C78.1 Secondary malignant neoplasm of mediastinum (principal); C77.8 Secondary and unspecified malignant neoplasm of lymph nodes of multiple regions; C78.01 Secondary malignant neoplasm of right lung; C78.7 Secondary malignant neoplasm of liver and intrahepatic bile duct; C79.72 Secondary malignant neoplasm of left adrenal gland; C79.71 Secondary malignant neoplasm of right adrenal gland; R74.01 Elevation of levels of liver transaminase levels; Z79.899 Other long term (current) drug therapy; Z87.891 Personal history of nicotine dependence; Z85.038 Personal history of other malignant neoplasm of large intestine; Z92.21 Personal history of antineoplastic chemotherapy; Z90.49 Acquired absence of other specified parts of digestive tract; Z86.718 Personal history of other venous thrombosis and embolism; Z51.12 Encounter for antineoplastic immunotherapy; R11.0 Nausea; Z79.52 Long term (current) use of systemic steroids
CPT/HCPCS: 80053; 85025; 96367; 96375; 96413; 96417; 99214; 99215; J1100; J1200; J1453; J2469; J3490; J7050; J9271; J9305

== ENCOUNTER → 2022-09-27 10:02 | Outpatient (BNVA) | payer MEDICARE, MEDICAID, SELFPAY | PROVIDERS: PCP Family Medicine; Visit Provider Internal Medicine Hematology & Oncology | DX: C34.90 Malignant neoplasm of unspecified part of unspecified bronchus or lung (principal) | CPT/HCPCS: 80053; 85025 ==

== ENCOUNTER 2022-09-28 14:51 | Oncology outpatient (recurring) (ONCR) | payer MEDICARE, MEDICAID, SELFPAY ==
[2022-09-28 16:43] LABS: Ferritin 874 ng/mL (15-150); Iron 72 ug/dL (37-145); Total Iron Binding Capacity 141 mcg/dl; Unsaturated Iron Binding 69 ug/dL (112-347)
[2022-09-28 17:32] LABS: Vitamin B12 > 2000 pg/mL (232-1245)
== END 2022-10-08 23:59 | disposition home or self-care (01) ==
PROVIDERS: PCP Family Medicine; Visit Provider Internal Medicine Hematology & Oncology
DX: Z53.9 Procedure and treatment not carried out, unspecified reason
CPT/HCPCS: 82607; 82728; 83540; 83550; 99214

== ENCOUNTER 2022-10-08 09:12 | Observation (INO) | payer MEDICARE, MEDICAID, SELFPAY ==
[2022-10-08] VITALS (11 sets, daily range): BP systolic 85–124; BP diastolic 49–74; PULSE 86–96; RESP 14–24; TEMP 36.1–36.4; O2SAT 90–95; BMI 18.3; BMI 22.4
--- NOTE | 2022-10-08 09:21 | ECG_ITS ---
[facility] Test Date: 2022-10-08 Pat Name: Dulce Moran Department: Room: Gender: Female Se[employer]: : 1955 Requested By: Andrea Elam Order Number: [id number] Ramandeep MD: Kirill Samuels M.D. Measurements Intervals [place] Rate: 96 P: 78 [place]: 110 QRS: 62 QRSD: 92 T: 120 QT: 379 QTc: 480 Interpretive Statements SINUS RHYTHM WITH SINUS ARRHYTHMIA WITH SHORT [place] INTERVAL LOW QRS VOLTAGE [QRS DEFLECTION < 0.5/1.0 mV IN LIMB/CHEST LEADS] POSSIBLE ANTERIOR MYOCARDIAL INFARCTION , OF INDETERMINATE AGE [30 ms Q WAVE IN V3/V4, OR R < 0.2 mV IN V4] Compared to ECG 09/08/2022 18:01:54 T-wave abnormality no longer present Possible ischemia no longer present Myocardial infarct finding still present Electronically Signed On 10-08-2022 15:48:57 CDT by Kirill Samuels M.D. [email or web address]
[2022-10-08 09:22] LABS: Glucose Point of Care 205 mg/dL (70-110)
--- NOTE | 2022-10-08 09:45 | ED_ITS ---
HPI - Altered Mental Status General: Chief Complaint: Altered Mental Status Stated Complaint: ams/ generalized weakness Time Seen by Provider: 10/08/22 09:14 Source: patient Mode of arrival: ambulatory History of Present Illness: 67-year-old female presents to the emergency room with complaints of altered mental status she was discharged yesterday from [facility] for sepsis per the family's report. She had previously had a primary colon cancer around [id number]. This was resected and she was treated within the last few months she was found to have what appears to be a primary lung cancer with metastasis to the liver. According to Dr. Martinez's note she was offered palliative chemotherapy she has changed her oncology care to [place] because Dr. Martinez had moved his practice. At the time of discharge yesterday she was up and ambulating this morning she is very lethargic barely arousable. She is on apixaban. There is no history of any falls or trauma. Family states the source of the sepsis was UTI. MD complaint: altered mental status Onset (ago): hour(s) Review of Systems Const: Denies: fever(s), chills, body aches, change in appetite, fatigue or malaise ENMT: Denies: throat pain, ear or mastoid pain, nasal discharge or nasal congestion Card: Denies: chest pain, edema, dyspnea on exertion or orthopnea Resp: Denies: dyspnea, productive cough or non-productive cough GI: Denies: abdominal pain, nausea, vomiting, hematemesis, coffee ground emesi s, diarrhea, constipation, bloating, hematochezia or melena : Denies: flank pain, difficulty voiding, dysuria, urinary frequency or urinary urgency Skin/Breast: Denies: rash or pruritus PFSH ED 2 PFSH: Medical History Ankylosing spondylitis Chronic GERD Chronic kidney disease, stage 1 Colon cancer Colon cancer Colon polyp COPD (chronic obstructive pulmonary disease) Depression DVT (deep venous thrombosis) Dyslipidemia History of colon cancer Rheumatoid arthritis Vitamin B12 deficiency Vitamin D deficiency Surgical History History of colon resection History of liver biopsy 07/27/2022 Dr. Esqueda [facility] S/P breast biopsy S/P hysterectomy Family History Father Diabetes Mother Cancer Grandmother Heart disease CAD (coronary artery disease) Brother Hyperlipidemia Hypertension Denies family history of Clotting disorder Dementia Psychiatric illness Chronic kidney disease (CKD) Suicide Anesthesia complication Bleeding disorder Lung disease Stroke Social History Smoking and tobacco status: former smoker Quit status (tobacco): has quit using tobacco Year quit tobacco: 2019 Second hand smoke exposure: Yes Alcohol intake: never Lives independently: Yes Household members: family Marital status: / Current occupational status: retired Current gender identity: Female Special jones needs: No Agree to transfusion: Yes Female Reproductive History: Spontaneous abortions: No Physical Exam Const: GENERAL APPEARANCE: cooperative, comfortable and lethargic ORIENTATI ON/CONSCIOUSNESS: Yes awake and Yes lethargic HENMT: COMMON NORMALS: normocephalic, atraumatic, hearing grossly normal bilaterally, external ears normal, EAC's normal, TM's normal bilaterally, Normal nasal mucous membranes and turbinates present, moist oral mucous membranes and oropharynx normal HEAD & SCALP: normocephalic and atraumatic NOSE: Normal nasal mucous membranes and turbinates present EXTERNAL EAR: Yes external ears normal EXTERNAL AUDITORY CANAL: EAC's normal TYMPANIC MEMBRANE: TM's normal bilaterally Eye: COMMON NORMALS: Equal, round and reactive pupils present, EOMs intact bilaterally, conjunctivae normal and no scleral icterus CONJUNCTIVA: Yes conjunctivae normal PUPIL: Yes Equal, round and reactive pupils present Neck/C-Spine: COMMON NORMALS: full ROM, no lymphadenopathy, supple and no JVD Lymph: LYMPHATIC: no lymphadenopathy noted and no lymphedema noted Resp: COMMON NORMALS: normal respiratory effort, No retractions, No use of accessory muscles and clear to auscultation bilaterally AUSCULTATION: clear to auscultation bilaterally Cardio: COMMON NORMALS: no JVD, regular rate, regular rhythm and No murmurs present (Cardio) RATE: regular rate RHYTHM: regular rhythm GI: COMMON NORMALS: Soft to palpation and No hepatosplenomegaly present AUSCULTATION: Yes normoactive bowel sounds PALPATION: Yes Soft to palpation, No Tenderness to palpation present (GI), No Guarding due to palpation present (GI) and Yes No hepatosplenomegaly present Extremity: COMMON NORMALS: normal to inspection, capillary refill normal, no clubbing, cyanosis or edema, no calf tenderness and no pedal edema Neuro: SENSORIUM/ORIENTATION: Yes lethargic Skin: COMMON NORMALS: no rashes or lesions noted GENERAL SKIN EXAM: no rashes or lesions noted Course Vital Signs: Vital signs: Vital Signs Temperature 97.5 F L 10/09/22 00:29 Pulse Rate 86 10/09/22 00:29 Respiratory Rate 16 10/09/22 00:29 Blood Pressure 90/55 10/09/22 00:29 Pulse Oximetry 90 10/09/22 00:29 Oxygen Delivery Me thod Room Air 10/08/22 19:59 MDM - Altered Mental Status Medical Decision Making We did get old records recent MRI showed [address] Santana felt there were several in the CT with contrast. Discussed with the family they tell me she has been deteriorating the last while. We discussed possible comfort care they would like to continue to pursue treatment for this discussed and they may need to talk to radiation oncology for radiation of the brain lesions. Antibiotic started we will discussed with hospitalist. Dr. Hernandes is seeing the patient considering whether or not they may transfer back to [facility] since they want to pursue treatments. Medical Records I reviewed the patient's medical records. Lab Data I reviewed the patient's lab results. 10/08/22 11:58 10/08/22 11:58 Radiology Impressions Chest X-Ray 10/08/22 10:01 IMPRESSION: 1. Infiltrate and atelectasis in the left lower lobe. There is also atelectasis and/or infiltrate in the right lower lobe. 2. Bibasal pleural effusions mild cardiac enlargement. Head CT 10/08/22 10:04 IMPRESSION: 1. No acute intracranial hemorrhage. No midline shift or ventriculomegaly. 2. There are numerous scattered areas within the cerebrum and cerebellum that are suspicious for metastatic disease. The largest lesion measures 13 x 8 mm in the superior RIGHT occipital lobe. There are additional tiny foci of increased enhancement within the cortex bilaterally and in the cerebellum. Highly suspicious for metastatic sites. Recommend additional evaluation by MRI brain with contrast. This can be done on a nonemergent basis. 3. Otherwise mild atrophy. Laboratory Results WBC 7.8 10^3/uL (4.0-10.0) 10/08/22 11:58 RBC 2.87 10^6/uL (4.1-5.3) L 10/08/22 11:58 Hgb 9.2 g/dL (11.5-15.3) L 10/08/22 11:58 Hct 28.9 % (37.0-47.0) L 10/08/22 11:58 MCV 100.7 fl (81-99) H 10/08/22 11:58 MCH 32.1 pg (28.0-34.0) 10/08/22 11:58 MCHC 31.8 g/dL (30.0-36.0) 10/08/22 11:58 RDW 17.5 % (12.1-15.1) H 10/08/22 11:58 Plt Count 211 10^3/cmm (130-400) 10/08/22 11:58 MPV 11.0 fL (7.4-10.4) H 10/08/22 11:58 Neut % (Auto) 77.4 % 10/08/22 11:58 Lymph % (Auto) 13.0 % 10/08/22 11:58 Forrest % (Auto) 8.4 % 10/08/22 11:58 Eos % (Auto) 0.1 % 10/08/22 11:58 Baso % (Auto) 0.1 % 10/08/22 11:58 Neut # (Auto) 6.00 10^3/uL (1.8-7.7) 10/08/22 11:58 Lymph # (Auto) 1.0 10^3/uL (0.8-4.8) 10/08/22 11:58 Forrest # (Auto) 0.7 10^3/uL (0.2-0.9) 10/08/22 11:58 Eos # (Auto) 0.0 10^3/uL (0.0-0.8) 10/08/22 11:58 Baso # (Auto) 0.0 10^3/uL (0.0-0.1) 10/08/22 11:58 Nucleated RBC % (auto) 0.4 % 10/08/22 11:58 Nucleated RBCs # 0.0 /100WBC 10/08/22 11:58 Specimen Type Arterial 10/08/22 10:02 Sample Site Radial, left 10/08/22 10:02 ABG pH 7.42 (7.35-7.45) 10/08/22 10:02 ABG pCO2 33.5 mmHg (35-45) L 10/08/22 10:02 ABG pO2 55.0 mmHg (80.0-100.0) L 10/08/22 10:02 ABG HCO3 21.5 mmol/L (22-26) L 10/08/22 10:02 ABG O2 Saturation 88.7 10/08/22 10:02 ABG Base Excess -2.6 mmol/L (-2.0-2.0) L 10/08/22 10:02 Douglas Test Pos 10/08/22 10:02 A-a O2 Gradient 6.9 mmHg (5-10) 10/08/22 10:02 Hematocrit 30.2 % (37-47) L 10/08/22 10:02 Hgb O2 Saturation 86.9 % (95-100) L 10/08/22 10:02 Carboxyhemoglobin 1.2 %THgb (0.4-20.1) 10/08/22 10:02 Methemoglobin 0.9 % (0.4-1.5) 10/08/22 10:02 Total Hemoglobin 9.9 g/dL (12-16) L 10/08/22 10:02 Sodium 136.0 mmol/L (131-143) 10/08/22 10:02 Potassium 3.3 mmol/L (3.5-5.0) L 10/08/22 10:02 Glucose 94.0 mg/dL (70-115) 10/08/22 10:02 Ionized Calcium 1.4 mmol/L (1.1-1.4) 10/08/22 10:02 O2 Delivery Device Room air 10/08/22 10:02 FiO2 21.0 % 10/08/22 10:02 Hose Inspector And Patcher ID [place] 10/08/22 10:02 Sodium 138 mmol/L (136-145) 10/08/22 11:58 Potassium 3.5 mmol/L (3.5-5.1) 10/08/22 11:58 Chloride 106 mmol/L (98-107) 10/08/22 11:58 Carbon Dioxide 20 mmol/L (22-29) L 10/08/22 11:58 Anion Gap 15.5 (5-19) 10/08/22 11:58 BUN 23 mg/dL (8-23) 10/08/22 11:58 Creatinine 1.4 mg/dL (0.5-0.9) H 10/08/22 11:58 GFR Calculation 37.5 mL/min (90-130) L 10/08/22 11:58 Glucose 72 mg/dL (65-115) 10/08/22 11:58 POC Glucose 205 mg/dL (70-110) H 10/08/22 09:19 Calculated Osmolality 288 mOsm/kg (285-295) 10/08/22 11:58 Lactic Acid 3.5 mmol/L (0.5-2.2) H 10/08/22 11:58 Calcium 8.7 mg/dL (8.5-10.5) 10/08/22 11:58 Total Bilirubin 1.3 mg/dL (0.15-1.2) H 10/08/22 11:58 AST 72 U/L (0-32) H 10/08/22 11:58 ALT 27 U/L (0-33) 10/08/22 11:58 Alkaline Phosphatase 429 U/L (35-105) H 10/08/22 11:58 Total Protein 3.7 g/dL (6.6-8.7) L 10/08/22 11:58 Albumin 1.9 g/dL (3.5-5.2) L 10/08/22 11:58 Globulin 1.8 g/dL (1.3-4.6) 10/08/22 11:58 Lipase 211 U/L (13-60) H 10/08/22 11:58 Urine Color Yellow (Yellow) 10/08/22 10:35 Urine Appearance Hazy (CLEAR) A 10/08/22 10:35 Urine pH 5 (5-7) 10/08/22 10:35 Ur Specific [place] 1.010 (1.005-1.030) 10/08/22 10:35 Urine Protein Trace (Negative) 10/08/22 10:35 Urine Glucose (UA) Norm (Normal) 10/08/22 10:35 Urine Ketones Negative (Negative) 10/08/22 10:35 Urine Blood Neg (Negative) 10/08/22 10:35 Urine Nitrate Negative (Negative) 10/08/22 10:35 Urine Bilirubin Neg (Negative) 10/08/22 10:35 Urine Urobilinogen Norm mg/dL (Negative) 10/08/22 10:35 Ur Leukocyte Esterase Negative (Negative) 10/08/22 10:35 Urine RBC 0-4 /hpf (0-2) H 10/08/22 10:35 Urine WBC 0-4 /hpf (0-5) H 10/08/22 10:35 Ur Squamous Epith Cells 0-4 /hpf (0-5) H 10/08/22 10:35 Amorphous Sediment 3+ /hpf 10/08/22 10:35 Urine Bacteria Trace /hpf (NONE) 10/08/22 10:35 Discharge Plan Discharge Patient Disposition: Admitted As Inpatient Admit Provider: Adelina Gilmore Clinical Impression: Metastatic primary lung cancer, Altered mental status, Pneumonia Condition: Stable Coding Level of Care Code ED Rotary Drill Operator Helper for Shauna Mejía
--- NOTE | 2022-10-08 10:01 | XR_ITS ---
WS: [id number] Exam: XR chest 1V portable [id number] Date/Time of Exam: 10/08/2022 10:50 AM Reason For Exam: dyspnea/cough Comparison 10/26/2021. There is consolidating infiltrate and atelectasis in the left lower lobe. There is also atelectasis a nd/or infiltrate in the right lower lobe. Bibasal pleural effusions are noted. Mild cardiac enlargeme nt. Right subclavian port ends in the lower one third of the SVC. No pneumothorax. Bony structures ar e intact. XR/XR chest 1V portable [id number] IMPRESSION: 1. Infiltrate and atelectasis in the left lower lobe. There is also atelectasis and/or infiltrate in the right lower lobe. 2. Bibasal pleural effusions mild cardiac enlargement.
--- NOTE | 2022-10-08 10:04 | CT_ITS ---
WS: [id number] CT HEAD WITH AND WITHOUT CONTRAST HISTORY: AMS/lung CA w mets TECHNIQUE: Noncontrast 2.5 mm axial images obtained from the vertex to the skull base. Additional fidencio ging performed at 2.5 mm axial images status post IV contrast. Bone and soft tissue windows are revie wed. All CT scans at [facility] use at least one of these dose optimization techniques: autom ated exposure control; mA and/or kV adjustment per patient size (includes targeted exams where dose i s matched to clinical indication); or iterative reconstruction. CONTRAST: Omnipaque 350; 100 mL IV. DLP: 1941.19 mGy.cm COMPARISON: 10/02/2017 No acute intracranial hemorrhage, edema or midline shift. Very mild atrophy and small vessel ischemic disease. There are several abnormalities throughout the brain. The largest area of decreased attenuation with peripheral enhancement in the superior RIGHT occipital lobe measures 13 x 8 mm. There is very mild pe ripheral enhancement. There are several other areas of focal enhancement throughout the brain which a re highly suspicious for metastatic sites. These are very small without surrounding edema. Bilateral cerebellar lesions. Additional scattered foci of enhancement within the supratentorial cortex noted t owards the vertex. There are frontal lobe cortical areas of enhancement. Some of these very tiny foci of enhancement could be a vessel seen on end but there are others that are very suspicious for metas tatic disease. Ventricles are normal size. Dural venous sinuses are normally enhancing. Visualized inaja of [place] is unremarkable. Paranasal sinuses as visualized: Clear. Mastoid air cells: Clear. Calvarium and scalp: Intact. CT/CT head wo/w con [id number] IMPRESSION: 1. No acute intracranial hemorrhage. No midline shift or ventriculomegaly. 2. There are numerous scattered areas within the cerebrum and cerebellum that are suspicious for metastatic disease. The largest lesion measures 13 x 8 mm in the superior RIGHT occipital lobe. There are additional tiny foci of increased enhancement within the cortex bilaterally and in the cerebellum. Highly suspic ious for metastatic sites. Recommend additional evaluation by MRI brain with co ntrast. This can be done on a nonemergent basis. 3. Otherwise mild atrophy.
[2022-10-08 10:13] LABS: ABG PCO2 33.5 mmHg (35-45); ABG PH Result 7.42 (7.35-7.45); Alveolar-Arterial Oxygen Gradi 6.9 mmHg (5-10); Arterial Blood Gas Hematocrit 30.2 % (37-47); Base Excess ABG -2.6 mmol/L (-2.0-2.0); Blood Gas Allen Test Pos; Blood Gas Operator Identificat WALCI; Blood Gas Sample Site Radial, left; Blood Gas Sample Type Arterial; Carboxyhemoglobin 1.2 %THgb (0.4-20.1); HCO3 ABG 21.5 mmol/L (22-26); HGB O2 Sat 86.9 % (95-100); Ionized Calcium Level - ABG 1.4 mmol/L (1.1-1.4); Methemoglobin 0.9 % (0.4-1.5); Oxygen Device ROOM AIR; Oxygen Saturation ABG 88.7; Potassium Level - ABG 3.3 mmol/L (3.5-5.0); Total Hemoglobin 9.9 g/dL (12-16)
[2022-10-08 10:56] LABS: Add Urine Microscopic? YES; Bilirubin Urine Neg (Negative); Blood Urine Neg (Negative); Glucose Urine UA Norm (Normal); Ketones Urine Negative (Negative); Leukocyte Esterase Urine Negative (Negative); Nitrate Urine Negative (Negative); Protein Urine Trace (Negative); RBC Urine 0-4 /hpf (0-2); Urine Appearance Hazy (CLEAR); Urine Color Yellow (Yellow); Urobilinogen Urine Norm (Negative); WBC Urine 0-4 /hpf (0-5); pH Urine 5 (5-7)
[2022-10-08 10:57] LABS: Add Urine Culture? No; Amorphous Sediment Urine 3+ /hpf; Bacteria Urine TRACE /hpf; Squamous Epithelial Cell Urine 0-4 /hpf (0-5)
[2022-10-08] MEDS: iohexol 350 mg/mL 500 mL Btl (per mL) IV (11:13)
[2022-10-08 12:08] LABS: Basophils % 0.1 %; Eosinophils % 0.1 %; Hematocrit 28.9 % (37.0-47.0); Hemoglobin 9.2 g/dL (11.5-15.3); Mean Corpuscular HGB Conc 31.8 g/dL (30.0-36.0); Mean Corpuscular Hemoglobin 32.1 pg (28.0-34.0); Mean Corpuscular Volume 100.7 fl (81-99); Monocytes # 0.7 10^3/uL (0.2-0.9); Monocytes % 8.4 %; Neutrophils % 77.4 %; Nucleated Red Blood Cells % 0.4 %; Platelet Count 211 10^3/cmm (130-400); Red Blood Count 2.87 10^6/uL (4.1-5.3); Red Cell Distribution Width 17.5 % (12.1-15.1); White Blood Count 7.8 10^3/uL (4.0-10.0)
[2022-10-08 12:24] LABS: Lactic Sepsis W/Reflex 3.5 mmol/L (0.5-2.2)
[2022-10-08 12:25] LABS: Alanine Aminotransferase 27 U/L (0-33); Albumin Level 1.9 g/dL (3.5-5.2); Alkaline Phosphatase 429 U/L (35-105); Anion Gap 15.5 (5-19); Aspartate Amino Transferase 72 U/L (0-32); Blood Urea Nitrogen 23 mg/dL (8-23); Calcium 8.7 mg/dL (8.5-10.5); Carbon Dioxide 20 mmol/L (22-29); Chloride 106 mmol/L (98-107); Globulin 1.8 g/dL (1.3-4.6); Glomerular Filtration Rate 37.5 mL/min (90-130); Glucose 72 mg/dL (65-115); Lipase 211 U/L (13-60); Osmolality Calculated 288 mOsm/kg (285-295); Potassium 3.5 mmol/L (3.5-5.1); Sodium 138 mmol/L (136-145); Total Bilirubin 1.3 mg/dL (0.15-1.2); Total Protein 3.7 g/dL (6.6-8.7)
--- NOTE | 2022-10-08 13:15 | PC.NURSE ---
Assumed care of patient at 1300.
[2022-10-08] MEDS: sodium chloride 0.9% 1,000 ML 999 ML IV (13:32)
[2022-10-08 13:51] LABS: Reflex Lactate Order REFLEX LACTIC ORDERD
[2022-10-08] MEDS: levofloxacin-dextrose 5 % 750 MG/150 ML PREMIX 100 MG IV (15:05)
[2022-10-08] MEDS: ondansetron 2 mg/ML SDV 2 mL 4 MG IVP (17:10)
--- NOTE | 2022-10-08 18:19 | P.HP_ITS ---
Providers/Chief Complaint Admitting Physician: Adelina Gilmore MD Primary Care Provider: Gina Jacob MD Chief Complaint: ams/ generalized weakness History of Present Illness Dulce Moran is a 67 year old female With a history of lung cancer that is metastatic to bone liver and brain, recently started chemotherapy with first cycle on September 21 with pembrolizumab. Additional carboplatin was recommended, however unable to be given due to nationwide shortage. She was recently admitted at [facility] between October 01 to October 07 after presenting there with acute UTI and sepsis. This was thought to be related to chemotherapy and previous Horton catheter placement. She received treatment with IV antibiotics, transitioned to po Ciprofloxacin at discharge. She also received thoracentesis. Cx negative from pleural fluid. No malignant cells. CT chest had shown right lung infiltrate, likely repreantative of her known malignancy. MRI showed a new metastatic brain lesion. She worked with PT, was able to ambulate with a walker but just prior to leaving developed nausea for which she has been taking Zofran. She is accompanied by her daughters today to the ER. They report that since last discharge patient has been increasingly weak. She is unable to get herself out of bed, unable to walk, feels like her legs are giving way below her. She has not been eating or drinking. Review of Systems General: Reports: 10 or more systems reviewed and unremarkable except in HPI and below Const: Denies: fever(s), chills or body aches Eyes: Denies: change in vision, blurry vision or photophobia ENMT: Reports: hoarseness; Denies: throat pain, enlarged tonsils, odynophagia or nasal congestion Card: Denies: chest pain, palpitations, irregular heart rhythm, edema, s welling of feet/ankles, lightheadedness, pre-syncope, dyspnea on exertion or orthopnea Resp: Denies: dyspnea, productive cough, non-productive cough, wheezing, stridor, pain on inspiration, change in phlegm color, hemoptysis or chest congestion GI: Denies: abdominal pain, nausea, vomiting, hematemesis, coffee ground emesis, dysphagia, heartburn, diarrhea, constipation, GI cramping, change in stool character, hematochezia or melena : Denies: flank pain, difficulty voiding, dysuria, urinary frequency, uri nary urgency, urinary hesitancy or hematuria Musc: Denies: neck pain, back pain, extremity pain, joint swelling, joint warmth or deformity Neuro: Denies: headache(s), numbness in extremities, weakness in extremities, sensory changes, difficulty walking, frequent falls, dizziness, vertigo, behavioral changes, Slurred speech present or seizure-like activity Psych: Denies: anxiety, depression, suicidal ideation or homicidal ideation Endo: Denies: polyuria, polydipsia, tired all the time, cold intolerance or hot flashes Jb/Lymph: Denies: easy bruising or easy bleeding Medications/Allergies Home Medications Medication Instructions Recorded Confirmed Last Taken Type apixaban 5 mg tablet (Eliquis) 5 mg PO BID #60 tabs 06/04/22 10/08/22 10/07/22 Rx budesonide-formoterol HFA 160 2 puff inhalation BID #10.2 grams 06/04/22 10/08/22 10/07/22 Rx mcg-4.5 mcg/actuation aerosol inhaler (Symbicort) tizanidine 4 mg tablet 4 mg PO Q8H PRN Muscle Spasm #90 06/22/22 10/08/22 07/26/22 Rx tabs diphenhydramine HCl 25 mg capsule 25 mg PO BEDTIME 08/20/22 10/08/22 10/07/22 History (Benadryl) albuterol sulfate 90 mcg/actuation 2 puff inhalation QID PRN 09/14/22 10/08/22 Unknown History aerosol inhaler Shortness Of Breath ciprofloxacin HCl 0.3 % eye drops See Rx Instructions .Route .COMPLEX 09/14/22 10/08/22 Unknown History citalopram 40 mg tablet 40 mg PO QAM 09/14/22 10/08/22 10/07/22 History cyanocobalamin (vitamin B-12) 1,000 mcg IM Q30D 09/14/22 10/08/22 2 Weeks Ago History 1,000 mcg/mL injection solution ~08/31/22 ergocalciferol (vitamin D2) 1,250 1,250 mcg PO Q7D 09/14/22 10/08/22 Unknown History mcg (50,000 unit) capsule fentanyl 12 mcg/hr transdermal 1 patch transdermal Q72H #5 ea 09/16/22 10/08/22 10/07/22 Rx patch hydromorphone 4 mg tablet 2 mg PO Q6H PRN Moderate Pain #30 09/16/22 10/08/22 Unknown Rx tabs naloxone 4 mg/actuation nasal 4 mg intranasal Q2M PRN opioid 09/16/22 10/08/22 Unknown Rx spray (Narcan) overdose #2 ea pantoprazole 40 mg tablet,delayed 40 mg PO BID #60 tabs 09/16/22 10/08/22 10/07/22 Rx release dexamethasone 4 mg tablet 4 mg PO DIRECTED Chemotherapy 09/21/22 10/08/22 Unknown Rx #24 tabs folic acid 1 mg tablet 1 mg PO DAILY #30 tabs 09/21/22 10/08/22 10/07/22 Rx ondansetron 4 mg disintegrating 4 mg PO Q8H PRN Nausea And Vomiting 09/21/22 10/08/22 Unknown History tablet prochlorperazine maleate 10 mg 10 mg PO Q4H PRN Mild Nausea #30 09/21/22 10/08/22 Unknown Rx tablet (Compazine) tabs lorazepam 1 mg tablet 0.5 - 1 mg PO Q6H PRN Severe 09/22/22 10/08/22 Unknown Rx Nausea #60 tabs wheel chair #1 ea 09/23/22 10/08/22 Unknown Rx diclofenac sodium 75 mg 75 mg PO Q12H PRN pain #20 tabs 10/08/22 Unknown Rx tablet,delayed release hydrocodone 10 mg-acetaminophen 1 tab PO Q6H 10/08/22 10/08/22 Unknown History 325 mg tablet prednisone 20 mg tablet 20 mg PO TID #15 tabs 10/08/22 Unknown Rx tizanidine 4 mg tablet 4 mg PO Q6H PRN muscle spasticity 10/08/22 Unknown Rx #20 tabs Allergies Allergy/AdvReac Type Severity Reaction Status Date / Time aspirin Allergy Unknown Unknown Verified 10/08/22 15:11 naproxen [From Aleve] Allergy Unknown unknown Verified 10/08/22 15:11 Penicillins Allergy Unknown Unknown Verified 10/08/22 15:11 Sulfa (Sulfonamide Allergy Unknown Unknown Verified 10/08/22 15:11 Antibiotics) PFSH Acute PFSH: Medical History Ankylosing spondylitis Chronic GERD Chronic kidney disease, stage 1 Colon cancer Colon cancer Colon polyp COPD (chronic obstructive pulmonary disease) Depression DVT (deep venous thrombosis) Dyslipidemia History of colon cancer Rheumatoid arthritis Vitamin B12 deficiency Vitamin D deficiency Surgical History History of colon resection History of liver biopsy 07/27/2022 Dr. Esqueda [facility] S/P breast biopsy S/P hysterectomy Family History Father Diabetes Mother Cancer Grandmother Heart disease CAD (coronary artery disease) Brother Hyperlipidemia Hypertension Denies family history of Clotting disorder Dementia Psychiatric illness Chronic kidney disease (CKD) Suicide Anesthesia complication Bleeding disorder Lung disease Stroke Social History Smoking and tobacco status: former smoker Quit status (tobacco): has quit using tobacco Year quit tobacco: 2018 Second hand smoke exposure: Yes Alcohol intake: never Lives independently: Yes Household members: family Marital status: / Current occupational status: retired Current gender identity: Female Special jones needs: No Agree to transfusion: Yes Female Reproductive History: Spontaneous abortions: No Vitals/I&O/Wt Last Vital Signs Temp 96.9 F L 10/08/22 09:21 Pulse 90 10/08/22 15:29 Resp 24 H 10/08/22 12:09 BP 97/54 10/08/22 15:29 Pulse Ox 95 10/08/22 15:29 O2 Del Method Room Air 10/08/22 15:43 10/08/22 10/08/22 10/08/22 06:59 14:59 22:59 Intake Total 1000 / 1000 270 / 1270 Balance 1000 / 1000 270 / 1270 Weight last 48 hrs Weight 55.656 kg Weight 45.359 kg Physical Exam Narrative: General: chronically ill appearing lady laying in bed in no acute distress, appears pale, older than stated age. HEENT: PERRLA, pupils bilaterally equal and reactive, pallors not present Chest: reduced breath sounds RLL CVS: S1-S2 regular, no murmurs, no tachycardia, no gallops, no rubs Abdomen: Soft, nontender, no organomegaly, bowel sounds present Neuro:Generalized fatigue, No focal deficits grossly, awake and oriented though does not participate very much in conversation Data 10/08/22 11:58 10/08/22 11:58 Micro: Microbiology 10/08/22 14:41 Blood Culture - Preliminary Blood SPECIMEN COLLECTED 10/08/22 11:58 Blood Culture - Preliminary Blood SPECIMEN COLLECTED Other data: Radiology Impressions Chest X-Ray 10/08/22 10:01 IMPRESSION: 1. Infiltrate and atelectasis in the left lower lobe. There is also atelectasis and/or infiltrate in the right lower lobe. 2. Bibasal pleural effusions mild cardiac enlargement. Head CT 10/08/22 10:04 IMPRESSION: 1. No acute intracranial hemorrhage. No midline shift or ventriculomegaly. 2. There are numerous scattered areas within the cerebrum and cerebellum that are suspicious for metastatic disease. The largest lesion measures 13 x 8 mm in the superior RIGHT occipital lobe. There are additional tiny foci of increased enhancement within the cortex bilaterally and in the cerebellum. Highly suspicious for metastatic sites. Recommend additional evaluation by MRI brain with contrast. This can be done on a nonemergent basis. 3. Otherwise mild atrophy. Laboratory Results WBC 7.8 10^3/uL (4.0-10.0) 10/08/22 11:58 RBC 2.87 10^6/uL (4.1-5.3) L 10/08/22 11:58 Hgb 9.2 g/dL (11.5-15.3) L 10/08/22 11:58 Hct 28.9 % (37.0-47.0) L 10/08/22 11:58 MCV 100.7 fl (81-99) H 10/08/22 11:58 MCH 32.1 pg (28.0-34.0) 10/08/22 11:58 MCHC 31.8 g/dL (30.0-36.0) 10/08/22 11:58 RDW 17.5 % (12.1-15.1) H 10/08/22 11:58 Plt Count 211 10^3/cmm (130-400) 10/08/22 11:58 MPV 11.0 fL (7.4-10.4) H 10/08/22 11:58 Neut % (Auto) 77.4 % 10/08/22 11:58 Lymph % (Auto) 13.0 % 10/08/22 11:58 Beckham % (Auto) 8.4 % 10/08/22 11:58 Eos % (Auto) 0.1 % 10/08/22 11:58 Baso % (Auto) 0.1 % 10/08/22 11:58 Neut # (Auto) 6.00 10^3/uL (1.8-7.7) 10/08/22 11:58 Lymph # (Auto) 1.0 10^3/uL (0.8-4.8) 10/08/22 11:58 Beckham # (Auto) 0.7 10^3/uL (0.2-0.9) 10/08/22 11:58 Eos # (Auto) 0.0 10^3/uL (0.0-0.8) 10/08/22 11:58 Baso # (Auto) 0.0 10^3/uL (0.0-0.1) 10/08/22 11:58 Nucleated RBC % (auto) 0.4 % 10/08/22 11:58 Nucleated RBCs # 0.0 /100WBC 10/08/22 11:58 Specimen Type Arterial 10/08/22 10:02 Sample Site Radial, left 10/08/22 10:02 ABG pH 7.42 (7.35-7.45) 10/08/22 10:02 ABG pCO2 33.5 mmHg (35-45) L 10/08/22 10:02 ABG pO2 55.0 mmHg (80.0-100.0) L 10/08/22 10:02 ABG HCO3 21.5 mmol/L (22-26) L 10/08/22 10:02 ABG O2 Saturation 88.7 10/08/22 10:02 ABG Base Excess -2.6 mmol/L (-2.0-2.0) L 10/08/22 10:02 Douglas Test Pos 10/08/22 10:02 A-a O2 Gradient 6.9 mmHg (5-10) 10/08/22 10:02 Hematocrit 30.2 % (37-47) L 10/08/22 10:02 Hgb O2 Saturation 86.9 % (95-100) L 10/08/22 10:02 Carboxyhemoglobin 1.2 %THgb (0.4-20.1) 10/08/22 10:02 Methemoglobin 0.9 % (0.4-1.5) 10/08/22 10:02 Total Hemoglobin 9.9 g/dL (12-16) L 10/08/22 10:02 Sodium 136.0 mmol/L (131-143) 10/08/22 10:02 Potassium 3.3 mmol/L (3.5-5.0) L 10/08/22 10:02 Glucose 94.0 mg/dL (70-115) 10/08/22 10:02 Ionized Calcium 1.4 mmol/L (1.1-1.4) 10/08/22 10:02 O2 Delivery Device Room air 10/08/22 10:02 FiO2 21.0 % 10/08/22 10:02 Content Assistant ID [place] 10/08/22 10:02 Sodium 138 mmol/L (136-145) 10/08/22 11:58 Potassium 3.5 mmol/L (3.5-5.1) 10/08/22 11:58 Chloride 106 mmol/L (98-107) 10/08/22 11:58 Carbon Dioxide 20 mmol/L (22-29) L 10/08/22 11:58 Anion Gap 15.5 (5-19) 10/08/22 11:58 BUN 23 mg/dL (8-23) 10/08/22 11:58 Creatinine 1.4 mg/dL (0.5-0.9) H 10/08/22 11:58 GFR Calculation 37.5 mL/min (90-130) L 10/08/22 11:58 Glucose 72 mg/dL (65-115) 10/08/22 11:58 POC Glucose 205 mg/dL (70-110) H 10/08/22 09:19 Calculated Osmolality 288 mOsm/kg (285-295) 10/08/22 11:58 Lactic Acid 3.5 mmol/L (0.5-2.2) H 10/08/22 11:58 Lactic Acid (Sepsis) 3.0 mmol/L (0.5-2.2) H 10/08/22 14:41 Calcium 8.7 mg/dL (8.5-10.5) 10/08/22 11:58 Total Bilirubin 1.3 mg/dL (0.15-1.2) H 10/08/22 11:58 AST 72 U/L (0-32) H 10/08/22 11:58 ALT 27 U/L (0-33) 10/08/22 11:58 Alkaline Phosphatase 429 U/L (35-105) H 10/08/22 11:58 Total Protein 3.7 g/dL (6.6-8.7) L 10/08/22 11:58 Albumin 1.9 g/dL (3.5-5.2) L 10/08/22 11:58 Globulin 1.8 g/dL (1.3-4.6) 10/08/22 11:58 Lipase 211 U/L (13-60) H 10/08/22 11:58 Urine Color Yellow (Yellow) 10/08/22 10:35 Urine Appearance Hazy (CLEAR) A 10/08/22 10:35 Urine pH 5 (5-7) 10/08/22 10:35 Ur Specific [place] 1.010 (1.005-1.030) 10/08/22 10:35 Urine Protein Trace (Negative) 10/08/22 10:35 Urine Glucose (UA) Norm (Normal) 10/08/22 10:35 Urine Ketones Negative (Negative) 10/08/22 10:35 Urine Blood Neg (Negative) 10/08/22 10:35 Urine Nitrate Negative (Negative) 10/08/22 10:35 Urine Bilirubin Neg (Negative) 10/08/22 10:35 Urine Urobilinogen Norm mg/dL (Negative) 10/08/22 10:35 Ur Leukocyte Esterase Negative (Negative) 10/08/22 10:35 Urine RBC 0-4 /hpf (0-2) H 10/08/22 10:35 Urine WBC 0-4 /hpf (0-5) H 10/08/22 10:35 Ur Squamous Epith Cells 0-4 /hpf (0-5) H 10/08/22 10:35 Amorphous Sediment 3+ /hpf 10/08/22 10:35 Urine Bacteria Trace /hpf (NONE) 10/08/22 10:35 A&P Assessment and plan (1) Generalized muscle weakness: (2) Metastatic primary lung cancer: Qualifiers: Laterality: unspecified laterality Qualified Code(s): C34.90 - Malignant neoplasm of unspecified part of unspecified bronchus or lung (3) Cancer cachexia: (4) Adult failure to thrive: (5) Dehydration: Plan 67 F with Metastatic lung cancer to liver, bones and brain s/p cycle 1 pembro on 09/21 Recent admission at [facility] 10/01-10/07 for UTI/ sepsis Urine cx with Pseudomonas aeruginosa, on PO cipro, will continue same to complete course blood cx currently N/A from [facility], drawn in ER today CT head performed today with multiple metastatic brain lesions- in contrast recent MRI at [facility] with one identified lesion CXR with B/L scattered non speicifc infiltrates and small effusions- s/p recent thoracentesis at [facility]. Likely corelated with known malignancy, no clinical signs of pneumonia currently Will likely need to start WBRT in the near furture CLinically appears to be dehydrated - start IVF NS @ 75 cc /hr continue home dose of hydrocodone -APAP for pain management prn zofran for nausea started on dexamethasone for cancer cachexia and failure to thrive PT/OT assessment for appropriate disposition planning DVT ppx: currently on eliquis 5 mg bid for h/o DVT PUD ppx: Protonix DNR/DNI Discussed extensively with the patient's daughter that currently focus is going to be on symptomatic management for anorexia, dehydration, cachexia and cancer pain. Will continue abx for her recent UTI. She will need close follow up with oncology for newly diagnosed brain metastasis and further treatment, likely as outpatient. Patient was previously followed here by Dr. Abdi, has transferred care to Dr. Diego at [facility] since Dr. Abdi will be leaving the organization soon. He is not available for consultation currently. Patient requests transfer to [facility] under care of her oncologist at [facility] in order to keep consolidated care at one center in the interest of continuity. She was just discharged there yesterday. We will place a call to the transfer center in accordance with her wishes. Attestations Medical Necessity Statement*: less than 2 midnight stay anticipated at this point in time, further course will be dependent on patient's response to steroids, IVF, pain management Coding Level of Care Code Acute Code for Chg Fwd Diagnoses Generalized muscle weakness M62.81 Metastatic primary lung cancer C34.90 Laterality: unspecified laterality Cancer cachexia R64 Adult failure to thrive R62.7 Dehydration E86.0
[2022-10-08] MEDS: sodium chloride 0.9% 1,000 ML 75 ML IV (18:41)
[2022-10-08] MEDS: dexamethasone 4 mg/mL INJ IVP (18:42)
[2022-10-08] MEDS: ipratropium-albuterol 3 mL Neb INHALATION (19:53)
[2022-10-08] MEDS: budesonide 0.5 mg/2 mL Neb INHALATION (19:54)
--- NOTE | 2022-10-09 00:23 | PC.NURSE ---
This patient and family requested patient be transferred to [facility] because oncologist is located there. At 2049 this nurse called report to MAITE Bolanos. Patient and family notified that report was called and the next step is transport. Transport with [facility] was established. EMS arrived to floor to retrieve patient at 2250. Report given to EMS team on patient. EMS and this nurse went to patient bedside and transferred patient from med/surg bed to [facility]. Patient safely buckled with safety belts. Chart and imaging sent with patient.
[2022-10-09 00:29] VITALS: BP 90/55; PULSE 86; RESP 16; TEMP 36.4; O2SAT 90
== END 2022-10-08 23:05 | disposition other institution (70) ==
LOC: ER 13:18 → MEDSURG 17:24
PROVIDERS: Admitting Provider Student in an Organized Health Care Education/Training Program; Emergency Provider Family Medicine; PCP Family Medicine; Visit Provider Student in an Organized Health Care Education/Training Program
DX: M62.81 Muscle weakness (generalized) (principal); C34.90 Malignant neoplasm of unspecified part of unspecified bronchus or lung; C79.51 Secondary malignant neoplasm of bone; C79.31 Secondary malignant neoplasm of brain; C78.7 Secondary malignant neoplasm of liver and intrahepatic bile duct; E86.0 Dehydration; Z68.22 Body mass index [BMI] 22.0-22.9, adult; R62.7 Adult failure to thrive; N39.0 Urinary tract infection, site not specified; Z87.891 Personal history of nicotine dependence; N18.1 Chronic kidney disease, stage 1; K21.9 Gastro-esophageal reflux disease without esophagitis; J44.9 Chronic obstructive pulmonary disease, unspecified; Z85.038 Personal history of other malignant neoplasm of large intestine; Z90.49 Acquired absence of other specified parts of digestive tract; Z86.718 Personal history of other venous thrombosis and embolism; Z79.01 Long term (current) use of anticoagulants; M06.9 Rheumatoid arthritis, unspecified; Z79.69 Long term (current) use of other immunomodulators and immunosuppressants; F11.90 Opioid use, unspecified, uncomplicated
CPT/HCPCS: 36415; 36416; 36600; 70470; 71045; 80051; 80053; 81001; 82330; 82805; 82962; 83605; 83690; 85025; 87040; 93005; 94640; 96365; 96375; 99285; G0378; J1100; J1956; J2405; J7030; J7626; Q9967

== ENCOUNTER 2022-10-14 07:19 | Inpatient (IN) | payer OTHER, MEDICARE, MEDICAID, SELFPAY ==
[2022-10-14] VITALS (7 sets, daily range): BP systolic 94; BP diastolic 57; PULSE 99–103; RESP 12–30; TEMP 36.8; O2SAT 84–95; BMI 21.9
--- NOTE | 2022-10-14 07:22 | ECG_ITS ---
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 Measurements Intervals [place] Rate: 99 P: 105 GA: 117 QRS: 76 QRSD: 89 T: 0 QT: 363 QTc: 466 Interpretive Statements SINUS RHYTHM WITH SHORT GA INTERVAL LOW QRS VOLTAGE [QRS DEFLECTION < 0.5/1.0 mV IN LIMB/CHEST LEADS] ANTEROSEPTAL MYOCARDIAL INFARCTION , OF INDETERMINATE AGE [40+ ms Q WAVE IN V1-V4] Compared to ECG 10/08/2022 09:25:26 Sinus arrhythmia no longer present Myocardial infarct finding still present Electronically Signed On 10-14-2022 12:14:16 CDT by Kirill Samuels M.D. [id number]
--- NOTE | 2022-10-14 07:23 | XR_ITS ---
WS: [id number] XR chest 1V portable [id number] REASON FOR EXAM: sob FINDINGS: Right chemotherapy infusion port and transjugular catheter remain in place unchanged compared to 10/08. There are bilateral pleural effusions as were noted on the previous examination of 10/08/2022. There m ay be an increased amount of fluid on the left side. Partial resolution of the area of atelectasis in the right lower lung compared to the previous study. There are no new findings. No acute pulmonary parenchymal process is identified. XR/XR chest 1V portable [id number] IMPRESSION: Bilateral pleural effusions possibly increased on the left since previous exami [facility]. No other interval change or new finding. No acute process.
--- NOTE | 2022-10-14 07:29 | PC.NURSE ---
PT PLACED ON 10 L NON-REBREATHER DUE TO OXYGEN SATURATION AT TIME OF ARRIVAL.
--- NOTE | 2022-10-14 07:35 | W.ED.SOB ---
HPI - SOB/Dyspnea General: Chief Complaint: Shortness of Breath/Dyspnea Stated Complaint: shortness of breath Time Seen by Provider: 10/14/22 07:20 Source: patient, family and EMS Mode of arrival: EMS Limitations: no limitations History of Present Illness: HPI Narrative: 67-year-old female has extensive medical history she has a history of CHF along with COPD lung cancer with brain mets. Per EMS patient's had increased weakness along with shortness of breath this morning she had recently left [place] on Tuesday. Patient here is in severe respiratory distress not able to speak but in 1-2 word sentences she is currently on a nonrebreather. Associated symptoms: Deny abdominal pain, chest pain, fever(s), nausea or vomiting Review of Systems Const: Reports: change in appetite, fatigue and malaise; Denies: fever(s), chills or body aches Eyes: Denies: eye discomfort ENMT: Denies: throat pain or dental pain Card: Denies: chest pain Resp: Reports: dyspnea and non-productive cough GI: Denies: abdominal pain, nausea, vomiting or diarrhea : Denies: dysuria Musc: Denies: neck pain or back pain Skin/Breast: Denies: rash Neuro: Denies: headache(s) PFSH ED PFSH: Medical History Ankylosing spondylitis Chronic GERD Chronic kidney disease, stage 1 Colon cancer Colon cancer Colon polyp COPD (chronic obstructive pulmonary disease) Depression DVT (deep venous thrombosis) Dyslipidemia History of colon cancer Rheumatoid arthritis Vitamin B12 deficiency Vitamin D deficiency Surgical History History of colon resection History of liver biopsy 07/27/2022 Dr. Esqueda [facility] S/P breast biopsy S/P hysterectomy Family History Father Diabetes Mother Cancer Grandmother Heart disease CAD (coronary artery disease) Brother Hyperlipidemia Hypertension Denies family history of Clotting disorder Dementia Psychiatric illness Chronic kidney disease (CKD) Suicide Anesthesia complication Bleeding disorder Lung disease Stroke Social History Smoking and tobacco status: former smoker Quit status (tobacco): has quit using tobacco Year quit tobacco: 2019 Second hand smoke exposure: Yes Alcohol intake: never Lives independently: Yes Household members: family Marital status: / Current occupational status: retired Current gender identity: Female Special jones needs: No Agree to transfusion: Yes Female Reproductive History: Spontaneous abortions: No Physical Exam Const: GENERAL APPEARANCE: in distress and ill appearing HENMT: COMMON NORMALS: normocephalic and atraumatic HEAD & SCALP: normocephalic and atraumatic Eye: COMMON NORMALS: Equal, round and reactive pupils present and EOMs intact bilaterally PUPIL: Yes Equal, round and reactive pupils present Neck/C-Spine: COMMON NORMALS: full ROM and supple Chest: COMMONS NORMALS: normal inspection of the chest and normal palpation of entire chest wall Resp: EFFORT & INSPECTION: Yes tachypneic and Yes respiratory distress AUSCULTATION: rales and wheezes Cardio: COMMON NORMALS: regular rate, regular rhythm and No murmurs present (Cardio) RATE: regular rate RHYTHM: regular rhythm GI: COMMON NORMALS: Normal to inspection, nondistended, normoactive bowel sounds present, Soft to palpation, non-tender and no masses PALPATION: Yes Soft to palpation Extremity: COMMON NORMALS: normal to inspection and full ROM Neuro: COMMON NORMALS: moves all extremities and no focal motor deficits Psych: COMMON NORMALS: mental status grossly normal, Normal thought process present and cooperative THOUGHT PROCESS: Normal thought process present Skin: COMMON NORMALS: no rashes or lesions noted and no wounds GENERAL SKIN EXAM: no rashes or lesions noted Course Vital Signs: Vital signs: Vital Signs Temperature 98.3 F 10/14/22 07:20 Pulse Rate 99 10/14/22 07:55 Respiratory Rate 30 H 10/14/22 07:51 Blood Pressure 94/57 10/14/22 07:20 Pulse Oximetry 95 10/14/22 07:52 Oxygen Delivery Me thod BiPAP 10/14/22 07:51 Oxygen Flow Rate 10 10/14/22 07:30 Fraction of Inspir ed Oxygen 35 10/14/22 07:52 MDM - SOB/Dyspnea Medical Decision Making Patient presents here with shortness of breath she is got extensive history I did speak to patient at length along with family they have decided to place her on comfort care I spoke to the hospitalist and will admit at this time for comfort care and to be able to set up hospice. Medical Records I reviewed the patient's medical records. Lab Data I reviewed the patient's lab results. Labs/Radiology: Radiology Impressions Chest X-Ray 10/14/22 07:23 IMPRESSION: Bilateral pleural effusions possibly increased on the left since previous examination. No other interval change or new finding. No acute process. Laboratory Results Specimen Type Arterial 10/14/22 07:25 Sample Site Radial, right 10/14/22 07:25 ABG pH 7.32 (7.35-7.45) L 10/14/22 07:25 ABG pCO2 33.4 mmHg (35-45) L 10/14/22 07:25 ABG pO2 96.9 mmHg (80.0-100.0) 10/14/22 07:25 ABG HCO3 17.3 mmol/L (22-26) L 10/14/22 07:25 ABG Base Excess -8.0 mmol/L (-2.0-2.0) L 10/14/22 07:25 Douglas Test Pos 10/14/22 07:25 Hematocrit 29.4 % (37-47) L 10/14/22 07:25 Hgb O2 Saturation 96.2 % (95-100) 10/14/22 07:25 Carboxyhemoglobin 1.0 %THgb (0.4-20.1) 10/14/22 07:25 Methemoglobin 0.7 % (0.4-1.5) 10/14/22 07:25 Total Hemoglobin 9.6 g/dL (12-16) L 10/14/22 07:25 O2 Delivery Device Nc 10/14/22 07:25 O2 Liters/Min 4.0 % 10/14/22 07:25 Flakeboard Line Tender ID Aliciaci 10/14/22 07:25 Discharge Plan Discharge Patient Disposition: Admitted As Inpatient Admit Provider: Ben Marino Clinical Impression: Metastatic primary lung cancer, COPD (chronic obstructive pulmonary disease) Condition: Stable Coding Level of Care Code ED International Sales Manager for Shauna Mejía
[2022-10-14 07:36] LABS: ABG PCO2 33.4 mmHg (35-45); ABG PH Result 7.32 (7.35-7.45); Arterial Blood Gas Hematocrit 29.4 % (37-47); Blood Gas Allen Test Pos; Blood Gas Operator Identificat WALCI; Blood Gas Sample Site Radial, right; Blood Gas Sample Type Arterial; HCO3 ABG 17.3 mmol/L (22-26); HGB O2 Sat 96.2 % (95-100); Methemoglobin 0.7 % (0.4-1.5); Oxygen Device NC; PO2 ABG 96.9 mmHg (80.0-100.0); Total Hemoglobin 9.6 g/dL (12-16)
[2022-10-14] MEDS: albuterol 2.5 mg/3 mL Neb INHALATION (07:54)
[2022-10-14] MEDS: morphine 4 mg/mL SDV 1 mL IVP ×3 (08:13→22:23)
[2022-10-14] MEDS: LORazepam 2 mg/mL INJ 1 mL 1 MG IVP (08:13)
--- NOTE | 2022-10-14 09:06 | PM.HP ---
Providers/Chief Complaint Admitting Physician: Ben Marino MD Primary Care Provider: Gina Jacob MD Chief Complaint: shortness of breath History of Present Illness Dulce Moran is a 67 year old female colon cancer, metastatic to the brain, recent multiple hospital stays, and currently very poor performance status presents to the emergency department with shortness of breath, increasing pain. The emergency department physician has been visiting with the family and the patient regarding comfort measures. She was initially put on BiPAP, but after these conversations, family elected allow natural and wants hospice/comfort measures. I confirmed this with the patient and the family in detail., reviewed the records therefore, ER physician canceled future lab plans, took her off BiPAP, and ordered comfort meds. I reviewed in detail with the family, and patient, expectations, services with hospice and comfort measures, and goals of treatment. They do elect to proceed with comfort and hospice care. Review of Systems General: Reports: ROS unobtainable due to medical condition Medications/Allergies Home Medications Medication Instructions Recorded Confirmed Last Taken Type apixaban 5 mg tablet (Eliquis) 5 mg PO BID #60 tabs 06/04/22 10/08/22 10/07/22 Rx budesonide-formoterol HFA 160 2 puff inhalation BID #10.2 grams 06/04/22 10/08/22 10/07/22 Rx mcg-4.5 mcg/actuation aerosol inhaler (Symbicort) tizanidine 4 mg tablet 4 mg PO Q8H PRN Muscle Spasm #90 06/22/22 10/08/22 07/26/22 Rx tabs diphenhydramine HCl 25 mg capsule 25 mg PO BEDTIME 08/20/22 10/08/22 10/07/22 History (Benadryl) albuterol sulfate 90 mcg/actuation 2 puff inhalation QID PRN 09/14/22 10/08/22 Unknown History aerosol inhaler Shortness Of Breath citalopram 40 mg tablet 40 mg PO QAM 09/14/22 10/08/22 10/07/22 History cyanocobalamin (vitamin B-12) 1,000 mcg IM Q30D 09/14/22 10/08/22 2 Weeks Ago History 1,000 mcg/mL injection solution ~08/31/22 ergocalciferol (vitamin D2) 1,250 1,250 mcg PO Q7D 09/14/22 10/08/22 Unknown History mcg (50,000 unit) capsule fentanyl 12 mcg/hr transdermal 1 patch transdermal Q72H #5 ea 09/16/22 10/08/22 10/07/22 Rx patch naloxone 4 mg/actuation nasal 4 mg intranasal Q2M PRN opioid 09/16/22 10/08/22 Unknown Rx spray (Narcan) overdose #2 ea dexamethasone 4 mg tablet 4 mg PO DIRECTED Chemotherapy 09/21/22 10/08/22 Unknown Rx #24 tabs folic acid 1 mg tablet 1 mg PO DAILY #30 tabs 09/21/22 10/08/22 10/07/22 Rx ondansetron 4 mg disintegrating 4 mg PO Q8H PRN Nausea And Vomiting 09/21/22 10/08/22 Unknown History tablet lorazepam 1 mg tablet 0.5 - 1 mg PO Q6H PRN Severe 09/22/22 10/08/22 Unknown Rx Nausea #60 tabs wheel chair #1 ea 09/23/22 10/08/22 Unknown Rx hydrocodone 10 mg-acetaminophen 1 tab PO Q6H 10/08/22 10/08/22 Unknown History 325 mg tablet prednisone 20 mg tablet 20 mg PO TID #15 tabs 10/08/22 Unknown Rx tizanidine 4 mg tablet 4 mg PO Q6H PRN muscle spasticity 10/08/22 Unknown Rx #20 tabs Allergies Allergy/AdvReac Type Severity Reaction Status Date / Time aspirin Allergy Unknown Unknown Verified 10/14/22 07:29 naproxen [From Aleve] Allergy Unknown unknown Verified 10/14/22 07:29 Penicillins Allergy Unknown Unknown Verified 10/14/22 07:29 Sulfa (Sulfonamide Allergy Unknown Unknown Verified 10/14/22 07:29 Antibiotics) PFSH Acute PFSH: Medical History Ankylosing spondylitis Chronic GERD Chronic kidney disease, stage 1 Colon cancer Colon cancer Colon polyp COPD (chronic obstructive pulmonary disease) Depression DVT (deep venous thrombosis) Dyslipidemia History of colon cancer Rheumatoid arthritis Vitamin B12 deficiency Vitamin D deficiency Surgical History History of colon resection History of liver biopsy 07/27/2022 Dr. Esqueda [facility] [place] S/P breast biopsy S/P hysterectomy Family History Father Diabetes Mother Cancer Grandmother Heart disease CAD (coronary artery disease) Brother Hyperlipidemia Hypertension Denies family history of Clotting disorder Dementia Psychiatric illness Chronic kidney disease (CKD) Suicide Anesthesia complication Bleeding disorder Lung disease Stroke Social History Smoking and tobacco status: former smoker Quit status (tobacco): has quit using tobacco Year quit tobacco: 2018 Second hand smoke exposure: Yes Alcohol intake: never Lives independently: Yes Household members: family Marital status: / Current occupational status: retired Current gender identity: Female Special jones needs: No Agree to transfusion: Yes Female Reproductive History: Spontaneous abortions: No Vitals/I&O/Wt Last Vital Signs Temp 98.3 F 10/14/22 07:20 Pulse 99 10/14/22 07:55 Resp 30 H 10/14/22 07:51 BP 94/57 10/14/22 07:20 Pulse Ox 95 10/14/22 07:52 O2 Del Method BiPAP 10/14/22 07:51 O2 Flow Rate 10 10/14/22 07:30 FiO2 35 10/14/22 07:52 Weight last 48 hrs Weight 54.431 kg Physical Exam Narrative: Exam is a white female, when I was evaluating her still, but basically getting admitted. Tachypnea noted HEENT: Atraumatic normocephalic. Exam significant Neck is supple no lymphadenopathy thyromegaly Vascular borderline tachycardic, no murmur Lungs diminished breath sounds but Abdomen slight distention. Diffuse bowel sounds present slight tenderness to patient exam is deferred Extremities show 3+ edema bilaterally and some edema in the extremities as well. Data Other data: ABG demonstrates a pH of 7.329, PCO2 33, PO2 97 initially on nasal cannula I believe but may have been transitioned to BiPAP at this point. Chest x-ray by my read demonstrates left pleural effusion, likely mild, port, right hilum generous A&P Assessment and plan (1) Acute respiratory failure: Patient presented with acute respiratory failure, initially requiring BiPAP. Effusion on chest x-ray does not appear large After extensive conversation by the emergency department physician, as well as myself patient and family has elected to go on comfort measures. Discontinue BiPAP (2) Cancer associated pain: Patient with widely metastatic cancer, including to the brain Family and patient has elected comfort measures Proceed with comfort orders, morphine, Ativan as needed Morphine will be used for cancer related pain which the patient has currently. (3) Colon cancer: Widely metastatic colon cancer, including metastasis to the brain Plan Other medical problems as listed in past medical history Allow natural Attestations Medical Necessity Statement*: Will require less than 2 midnight stay for treatment of cancer related pain in observation status. Diagnoses Acute respiratory failure J96.00 Cancer associated pain G89.3 Colon cancer C18.9 Time Spent (min) 46
[2022-10-14] MEDS: LORazepam 2 mg/mL INJ 1 mL IVP (16:42)
[2022-10-15 06:23] VITALS: RESP 17
[2022-10-15] MEDS: morphine 4 mg/mL SDV 1 mL IVP ×5 (06:23→23:50)
--- NOTE | 2022-10-15 09:36 | PM.PN ---
Subjective Subjective: Family reports patient is comfortable. She has not been responsive for them. Last dose of IV morphine this morning around 620. Medications: Reviewed: Yes Vitals/I&O/Wt Last Vital Signs Temp 98.3 F 10/14/22 07:20 Pulse 99 10/14/22 07:55 Resp 17 10/15/22 06:23 BP 94/57 10/14/22 07:20 Pulse Ox 95 10/14/22 07:52 O2 Del Method Nasal Cannula 10/14/22 15:03 O2 Flow Rate 10 10/14/22 07:30 FiO2 35 10/14/22 07:52 10/14/22 10/15/22 10/15/22 22:59 06:59 14:59 Output Total 450 / 450 50 / 500 Balance -450 / -450 -50 / -500 Weight last 48 hrs Weight 54.431 kg Physical Exam Narrative: General exam, arouses slightly, sucking motion, slight moan. Appears comfortable. Cardiovascular slight tachycardia, no murmur Lungs coarse bibasilar Abdomen slight distention Extremities 2+ edema. No mottling Urinary Catheter Management: Horton: Cath Placed During This Visit: yes Reason for Continuing Indwelling Catheter: Accurate Measurement of Urinary Output in Critically Ill Patients Urinary Catheter Date of Insertion: 10/14/22 Urinary Catheter Time of Insertion: 14:45 A&P Assessment and plan (1) Acute respiratory failure: Patient presented with acute respiratory failure, initially requiring BiPAP. Effusion on chest x-ray does not appear large After extensive conversation by the emergency department physician, as well as myself patient and family has elected to go on comfort measures. BiPAP was discontinued Patient is on comfort measures, and appears comfortable. (2) Cancer associated pain: Patient with widely metastatic cancer, including to the brain Family and patient has elected comfort measures Proceed with comfort orders, morphine, Ativan as needed Morphine will be used for cancer related pain which the patient has currently. (3) Colon cancer: Widely metastatic colon cancer, including metastasis to the brain Plan Other medical problems as listed in past medical history Allow natural Attestations Medical Necessity Statement*: Needs continued hospital stay for comfort measures including IV pain medication Diagnoses Acute respiratory failure J96.00 Cancer associated pain G89.3 Colon cancer C18.9 Time Spent (min) 14
[2022-10-15] MEDS: glycopyrrolate 0.2 mg/mL SDV 2 mL IV (11:16)
[2022-10-15] MEDS: blistex lip oint 7 gm Tube 1 APPLIC TOPICAL (23:50)
--- NOTE | 2022-10-15 23:53 | PC.NURSE ---
Family refusing for patient to be turned at this time. Family refusing vital signs throughout shift.
[2022-10-16 02:15] VITALS: RESP 14
[2022-10-16] MEDS: morphine 4 mg/mL SDV 1 mL IVP ×4 (02:15→09:47)
[2022-10-16] MEDS: LORazepam 2 mg/mL INJ 1 mL IVP ×2 (09:47→14:44)
[2022-10-16] MEDS: morphine 10 mg/0.5 mL oral liq UD SUBLINGUAL ×3 (13:36→22:12)
--- NOTE | 2022-10-16 14:37 | PM.PN ---
Subjective Subjective: Patient was seen this morning, family members at bedside, she does awaken, but falls back asleep, Vitals/I&O/Wt Last Vital Signs Temp 98.3 F 10/14/22 07:20 Pulse 99 10/14/22 07:55 Resp 14 10/16/22 02:15 BP 94/57 10/14/22 07:20 Pulse Ox 95 10/14/22 07:52 O2 Del Method Nasal Cannula 10/14/22 15:03 O2 Flow Rate 10 10/14/22 07:30 FiO2 35 10/14/22 07:52 10/15/22 10/16/22 10/16/22 22:59 06:59 14:59 Intake Total 0 / 0 Output Total Balance 0 / 0 - Physical Exam Const: COMMON NORMALS: no acute distress Resp: COMMON NORMALS: normal respiratory effort, No retractions and No use of accessory muscles AUSCULTATION: wheezes Cardio: COMMON NORMALS: regular rate, regular rhythm, S1 normal heart sound present and S2 normal heart sound present RATE: regular rate RHYTHM: regular rhythm HEART SOUNDS: S1 normal heart sound present and S2 normal heart sound present GI: COMMON NORMALS: Normal to inspection, nondistended, normoactive bowel sounds present Extremity: COMMON NORMALS: no pedal edema Urinary Catheter Management: Horton: Cath Placed During This Visit: yes Reason for Continuing Indwelling Catheter: Hospice/Comfort/Palliative Care Urinary Catheter Date of Insertion: 10/14/22 Urinary Catheter Time of Insertion: 14:45 A&P Assessment and plan (1) Acute respiratory failure: (2) Cancer associated pain: (3) Colon cancer: (4) Need for comfort care: Plan Currently on comfort care Attestations Medical Necessity Statement*: Patient requires hospitalization for inpatient comfort care Diagnoses Acute respiratory failure J96.00 Cancer associated pain G89.3 Colon cancer C18.9 Need for comfort care
[2022-10-16] MEDS: blistex lip oint 7 gm Tube 1 APPLIC TOPICAL (22:12)
[2022-10-17] MEDS: morphine 10 mg/0.5 mL oral liq UD SUBLINGUAL ×2 (00:21→02:18)
--- NOTE | 2022-10-17 04:36 | PC.NURSE ---
TOLaisha 3:45 am-two nurse verified.
--- NOTE | 2022-10-19 07:43 | PM.DDS ---
Discharge Providers DDS Date of Admission: 10/14/22 15:40 Date Summary Completed: 10/27/22 Attending Provider at Admission: Ben Marino MD Attending Provider at Discharge: Abad Izaguirre MD Primary Care Provider: Gina Jacob MD DS Diagnoses Hospital Diagnoses (1) Acute respiratory failure: (2) Cancer associated pain: (3) Colon cancer: (4) Need for comfort care: Reason for Visit Reason for Visit shortness of breath Summary Summary Summary: Dulce Moran is a 67 year old female colon cancer, metastatic to the brain, recent multiple hospital stays, and currently very poor performance status presents to the emergency department with shortness of breath, increasing pain.? The emergency department physician has been visiting with the family and the patient regarding comfort measures.? She was initially put on BiPAP, but after these conversations, family elected allow natural and wants hospice/comfort measures.? I confirmed this with the patient and the family in detail., reviewed the records therefore, ER physician canceled future lab plans, took her off BiPAP, and ordered comfort meds.? I reviewed in detail with the family, and patient, expectations, services with hospice and comfort measures, and goals of treatment.? They do elect to proceed with comfort and hospice care. On admission patient had acute hypoxic respiratory failure, with underlying metastatic colon cancer, poor performance status, intractable cancer related pain, after discussion with patient and family, decision was made to pursue inpatient comfort care Patient was managed with inpatient comfort care, Time of 3:45 AM 10/17/2022 Additional Data Confirmation of as documented by pronouncing clinician: no pulse and no respirations Attending/PCP notified?: I am attending Was code activated?: No Autopsy requested?: No Advance directives?: Yes Discharge Plan Discharge Patient Disposition: Condition: Stable Probable Cause of Probable cause of : Cardiac arrest DS Attestations Time Spent in /Discharge Care*: greater than 30 min Quality - AMI: AMI present?: No Quality - Stroke: CVA present?: No Quality - VTE: VTE present?: No Coding Level of Care Code 83397 Total time (in minutes) for Discharge: 45 Diagnoses Acute respiratory failure J96.00 Cancer associated pain G89.3 Colon cancer C18.9 Need for comfort care
== END 2022-10-17 04:38 | disposition expired | DRG 951 ==
LOC: ER 07:37 → MEDSURG 10:43
PROVIDERS: Admitting Provider Internal Medicine; Emergency Provider Emergency Medicine; PCP Family Medicine; Visit Provider Family Medicine
DX: Z51.5 Encounter for palliative care (principal); J96.00 Acute respiratory failure, unspecified whether with hypoxia or hypercapnia; C18.9 Malignant neoplasm of colon, unspecified; C79.31 Secondary malignant neoplasm of brain; G89.3 Neoplasm related pain (acute) (chronic); I46.9 Cardiac arrest, cause unspecified; K21.9 Gastro-esophageal reflux disease without esophagitis; N18.1 Chronic kidney disease, stage 1; J44.9 Chronic obstructive pulmonary disease, unspecified; F32.A Depression, unspecified; Z86.718 Personal history of other venous thrombosis and embolism; E78.5 Hyperlipidemia, unspecified; M06.9 Rheumatoid arthritis, unspecified; Z90.49 Acquired absence of other specified parts of digestive tract; Z87.891 Personal history of nicotine dependence; Z66 Do not resuscitate
CPT/HCPCS: 36600; 51702; 71045; 82805; 93005; 94640; 94660; 96374; 96375; 99285; G0378; J2060; J2270; J3490; J7613